=== PATIENT | male | born 1950 | race African-American/Black ===

== ENCOUNTER → 2016-06-17 | Outpatient (CLI) | payer MEDICARE | LOC: OD 08:31 | PROVIDERS: ATTEND Internal Medicine | DX: M17.11 Unilateral primary osteoarthritis, right knee (principal) ==

== ENCOUNTER 2019-09-02 08:12 | Inpatient (IN) | payer MEDICARE, BC, OTHER ==
[2019-09-02] MEDS ORDERED: ACETAMINOPHEN 325 MG TABLET PO ONE ×2 (08:56→14:53)
[2019-09-02] MEDS ORDERED: NORMAL SALINE 1000 ML 1,000 ML IV ONE (09:37)
--- NOTE | 2019-09-02 09:40 | ER Document Report ---
ED GI/ - General TRAVEL OUTSIDE OF THE [place] IN LAST 30 DAYS: No - HPI Patient complains to provider of: No: Abdominal pain Timing/Duration: Gradual Quality of pain: Burning Pain Level: 1 Associated symptoms: Chills, Dysuria, Fever, Urinary frequency, Urinary urgency. denies: Chest pain, Diarrhea, Nausea, Urinary hesitancy Exacerbated by: Denies Relieved by: Denies Similar symptoms previously: No Recently seen / treated by doctor: No <RAFFI MUÑIZ - Last Filed: 09/02/19 20:14> <KONSTANTIN ANDRE - Last Filed: 09/05/19 03:31> - General Chief Complaint: Urinary Incontinence Stated Complaint: URINARY INCONTINENCE Time Seen by Provider: 09/02/19 09:05 Notes: Patient presents complaining of fever hot and cold chills with dysuria and hematuria that started yesterday. Patient denies any nausea or vomiting. Patient denies any abdominal tenderness or back pain. Patient denies any history of kidney stones. (RAFFI MUÑIZ) - Related Data Allergies/Adverse Reactions: No Known Allergies Allergy (Verified 09/02/19 09:54) Past Medical History - General Information source: Patient - Social History Smoking Status: Never Smoker Frequency of alcohol use: None Drug Abuse: None Lives with: Family Family History: Reviewed & Not Pertinent - Past Medical History Cardiac Medical History: Reports: Hx Hypercholesterolemia, Hx Hypertension Endocrine Medical History: Reports: Hx Diabetes Mellitus Type 2 Past Surgical History: Reports: Hx Orthopedic Surgery - rt ankle - Immunizations Hx Diphtheria, Pertussis, Tetanus Vaccination: Yes <RAFFI MUÑIZ - Last Filed: 09/02/19 20:14> Review of Systems - Review of Systems Constitutional: Chills, Fever EENT: No symptoms reported Cardiovascular: Dizziness. denies: Chest pain Respiratory: No symptoms reported. denies: Cough, Short of breath Gastrointestinal: No symptoms reported. denies: Abdominal pain, Diarrhea, Nausea, Vomiting Genitourinary: Dysuria, Frequency, Hematuria, Incontinence, Urgency. denies: Flank pain Male Genitourinary: No symptoms reported Musculoskeletal: No symptoms reported. denies: Back pain Skin: No symptoms reported Hematologic/Lymphatic: No symptoms reported Neurological/Psychological: No symptoms reported. denies: Headaches <RAFFI MUÑIZ - Last Filed: 09/02/19 20:14> Physical Exam - General General appearance: Appears well, Alert In distress: None - HEENT Head: Normocephalic, Atraumatic Eyes: Normal Nasal: Normal Mouth/Lips: Normal Mucous membranes: Normal Neck: Normal, Supple. No: Lymphadenopathy - Respiratory Respiratory status: No respiratory distress Chest status: Nontender Breath sounds: Normal. No: Rales, Rhonchi, Stridor, Wheezing Chest palpation: Normal - Cardiovascular Rhythm: Tachycardia Heart sounds: S1 appreciated, S2 appreciated Murmur: No - Abdominal Inspection: Normal Distension: No distension Bowel sounds: Normal Tenderness: Nontender Organomegaly: No organomegaly - Back Back: Normal, Nontender. No: CVA tenderness - Extremities General upper extremity: Normal inspection, Normal strength General lower extremity: Normal inspection, Normal strength - Neurological Neuro grossly intact: Yes Cognition: Normal Akash Coma Scale Eye Opening: Spontaneous Akash Coma Scale Verbal: Oriented [place] Coma Scale Motor: Obeys Commands [place] Coma Scale Total: 15 - Psychological Associated symptoms: Normal affect, Normal mood - Skin Skin Temperature: Warm Skin Moisture: Dry Skin Color: Normal <RAFFI MUÑIZ - Last Filed: 09/02/19 20:14> - Vital signs Vitals: Temp Pulse Resp BP Pulse Ox 101.6 F H 111 H 18 126/77 H 95 09/02/19 08:16 09/02/19 08:16 09/02/19 08:16 09/02/19 08:16 09/02/19 08:16 Course - Laboratory Result Diagrams: 09/02/19 09:46 09/02/19 09:46 - Diagnostic Test Radiology reviewed: Reports reviewed - EKG Interpretation by Ga EKG shows normal: Sinus rhythm Rate: Tachycardia When compared to previous EKG there are: Previous EKG unavailable <RAFFI MUÑIZ - Last Filed: 09/02/19 20:14> - Laboratory Result Diagrams: 09/04/19 04:23 09/04/19 04:23 <KONSTANTIN ANDRE - Last Filed: 09/05/19 03:31> - Re-evaluation Re-evalutation: 09/02/19 14:52 Patient standing at bedside, tachycardic. With blood noted on and in the urinal. Discussed patient status with nurse, staff states that the IV spilled and that he has only received 1 L of IV fluids, although 2nd liter is hanging now. RN also reports that patient accidentally pulled part of his IV catheter that caused bleeding into the urinal, patient does not have crescencio blood to the urine, rather that this was from his IV site. Will repeat temperature. Consulted with dr Andre regarding patient status, Dr. Andre to evaluate patient. 09/02/19 15:00 Patient febrile, Tylenol ordered suspect this is a likely cause of the tachycardia at this time. Dr. Andre to bedside evaluation, agrees with plan for admission. 09/02/19 15:01 09/02/19 15:[address] Zepeda who agrees to accept patient for admission, Chanda Yee [employer] will be down to evaluate patient. (RAFFI MUÑIZ) - Vital Signs Vital signs: Temp Pulse Resp BP Pulse Ox 99.7 F 89 16 157/91 H 98 09/05/19 00:48 09/05/19 02:00 09/05/19 00:48 09/05/19 00:48 09/05/19 00:48 - Laboratory Laboratory results interpreted by me: 09/02/19 09/02/19 09/02/19 09:46 09:46 09:46 WBC 18.4 H Lymph % (Auto) 5.6 L Absolute Neuts (auto) 15.8 H Absolute Monos (auto) 1.5 H Seg Neutrophils % 85.8 H Creatinine 1.49 H Est GFR ( Amer) 57 L Est GFR (MDRD) Non-Af 47 L Glucose 119 H Lactic Acid Urine Protein 100 H Urine Blood LARGE H Ur Leukocyte Esterase LARGE H 09/02/19 13:25 WBC Lymph % (Auto) Absolute Neuts (auto) Absolute Monos (auto) Seg Neutrophils % Creatinine Est GFR ( Amer) Est GFR (MDRD) Non-Af Glucose Lactic Acid 3.3 H Urine Protein Urine Blood Ur Leukocyte Esterase Labs- All tests 24 hr 09/02/19 09/02/19 09/02/19 09:46 09:46 09:46 WBC 18.4 H RBC 4.58 Hgb 14.3 Hct 41.4 MCV 90 MCH 31.1 MCHC 34.4 RDW 14.0 Plt Count 212 Lymph % (Auto) 5.6 L [place] % (Auto) 8.3 Eos % (Auto) 0.1 Baso % (Auto) 0.2 Absolute Neuts (auto) 15.8 H Absolute Lymphs (auto) 1.0 Absolute Monos (auto) 1.5 H Absolute Eos (auto) 0.0 Absolute Basos (auto) 0.0 Seg Neutrophils % 85.8 H PT 13.6 INR 1.04 VBG pH 7.41 VBG pCO2 45.1 VBG HCO3 27.8 VBG Base Excess 2.6 Sodium Potassium Chloride Carbon Dioxide Anion Gap BUN Creatinine Est GFR ( Amer) Est GFR (MDRD) Non-Af Glucose POC Glucose Lactic Acid Calcium Total Bilirubin Direct Bilirubin Neonat Total Bilirubin Neonat Direct Bilirubin Neonat Indirect Bili AST ALT Alkaline Phosphatase Total Protein Albumin Urine Color Urine Appearance Urine pH Ur Specific [place] Urine Protein Urine Glucose (UA) Urine Ketones Urine Blood Urine Nitrite Urine Bilirubin Urine Urobilinogen Ur Leukocyte Esterase Urine WBC (Auto) Urine RBC (Auto) Urine WBC Clumps Squamous Epi Cells Auto Urine Mucus (Auto) Urine Ascorbic Acid 09/02/19 09/02/19 09/02/19 09:46 09:46 09:46 WBC RBC Hgb Hct MCV MCH MCHC RDW Plt Count Lymph % (Auto) [place] % (Auto) Eos % (Auto) Baso % (Auto) Absolute Neuts (auto) Absolute Lymphs (auto) Absolute Monos (auto) Absolute Eos (auto) Absolute Basos (auto) Seg Neutrophils % PT INR VBG pH VBG pCO2 VBG HCO3 VBG Base Excess Sodium 137.4 Potassium 4.0 Chloride 102 Carbon Dioxide 26 Anion Gap 9 BUN 20 Creatinine 1.49 H Est GFR ( Amer) 57 L Est GFR (MDRD) Non-Af 47 L Glucose 119 H POC Glucose Lactic Acid 1.1 Calcium 9.6 Total Bilirubin 1.0 Direct Bilirubin 0.0 Neonat Total Bilirubin Not Reportable Neonat Direct Bilirubin Not Reportable Neonat Indirect Bili Not Reportable AST 23 ALT 20 Alkaline Phosphatase 88 Total Protein 7.3 Albumin 4.3 Urine Color YELLOW Urine Appearance CLOUDY Urine pH 6.0 Ur Specific [place] 1.020 Urine Protein 100 H Urine Glucose (UA) NEGATIVE Urine Ketones NEGATIVE Urine Blood LARGE H Urine Nitrite NEGATIVE Urine Bilirubin NEGATIVE Urine Urobilinogen NEGATIVE Ur Leukocyte Esterase LARGE H Urine WBC (Auto) >182 Urine RBC (Auto) >182 Urine WBC Clumps MANY Squamous Epi Cells Auto 3 Urine Mucus (Auto) OCC Urine Ascorbic Acid NEGATIVE 09/02/19 09/02/19 10:47 13:25 WBC RBC Hgb Hct MCV MCH MCHC RDW Plt Count Lymph % (Auto) [place] % (Auto) Eos % (Auto) Baso % (Auto) Absolute Neuts (auto) Absolute Lymphs (auto) Absolute Monos (auto) Absolute Eos (auto) Absolute Basos (auto) Seg Neutrophils % PT INR VBG pH VBG pCO2 VBG HCO3 VBG Base Excess Sodium Potassium Chloride Carbon Dioxide Anion Gap BUN Creatinine Est GFR ( Amer) Est GFR (MDRD) Non-Af Glucose POC Glucose 107 Lactic Acid 3.3 H Calcium Total Bilirubin Direct Bilirubin Neonat Total Bilirubin Neonat Direct Bilirubin Neonat Indirect Bili AST ALT Alkaline Phosphatase Total Protein Albumin Urine Color Urine Appearance Urine pH Ur Specific [place] Urine Protein Urine Glucose (UA) Urine Ketones Urine Blood Urine Nitrite Urine Bilirubin Urine Urobilinogen Ur Leukocyte Esterase Urine WBC (Auto) Urine RBC (Auto) Urine WBC Clumps Squamous Epi Cells Auto Urine Mucus (Auto) Urine Ascorbic Acid (RAFFI MUÑIZ) - EKG Interpretation by Me Additional EKG results interpreted by me: 09/02/19 15:32 Sinus tachycardia with a rate of 133, QTC 399, no acute ischemic changes, patient febrile when EKG taken (RAFFI MUÑIZ) Discharge - Discharge Admitting Provider: Duane (Hospitalist) Unit Admitted: [facility] <RAFFI MUÑIZ - Last Filed: 09/02/19 20:14> <KONSTANTIN ANDRE - Last Filed: 09/05/19 03:31> - Discharge Clinical Impression: Fever UTI (urinary tract infection) Qualifiers: Urinary tract infection type: acute cystitis Hematuria presence: with hematuria Qualified Code(s): N30.01 - Acute cystitis with hematuria Sepsis Qualifiers: Sepsis type: sepsis due to unspecified organism Severe sepsis acute organ dysfunction type: acute renal failure Severe sepsis shock status: without septic shock Condition: Fair Disposition: ADMITTED INPATIENT Doctor's Note <KONSTANTIN ANDRE - Last Filed: 09/05/19 03:31> Notes: 09/03/19 15:29 I was asked to see the patient by the midlevel provider, patient's tachycardic and appears to be dehydrated with a fever that is ascending. I have suggested to increase fluid bolus, treatment of fever, and admission to the hospital for further evaluation of possible sepsis. (KONSTANTIN ANDRE)
--- NOTE | 2019-09-02 10:14 | RADIOLOGY REPORT (SQ) ---
EXAM DESCRIPTION: CHEST SINGLE VIEW IMAGES COMPLETED DATE/TIME: 09/02/2019 9:58 am REASON FOR STUDY: fever, dizzy COMPARISON: None. NUMBER OF VIEWS: One view. TECHNIQUE: Single frontal radiographic view of the chest acquired. LIMITATIONS: None. FINDINGS: LUNGS AND PLEURA: No opacities, masses or pneumothorax. No pleural effusion. MEDIASTINUM AND HILAR STRUCTURES: No masses. Contour normal. HEART AND VASCULAR STRUCTURES: Heart normal in size. Normal vasculature. BONES: No acute findings. HARDWARE: None in the chest. OTHER: No other significant finding. IMPRESSION: NO SIGNIFICANT RADIOGRAPHIC FINDING IN THE CHEST. TECHNICAL DOCUMENTATION: JOB ID: [id number] 2010 [employer]- All Rights Reserved Reading location - IP/workstation name: [email or web address]
[2019-09-02 10:46] LABS: ABSOLUTE MONOCYTES (AUTO) 1.5 10^3/uL (0.1-1.4); ABSOLUTE NEUT (AUTO) 15.8 10^3/uL (1.7-8.2); BASOPHILS % (AUTO) 0.2 % (0-2); EOSINOPHILS % (AUTO) 0.1 % (0-6); HEMATOCRIT 41.4 % (37.9-51.0); HEMOGLOBIN 14.3 g/dL (13.5-17.0); LYMPHOCYTES % (AUTO) 5.6 % (13-45); MEAN CORPUSCULAR HEMOGLOBIN 31.1 pg (27.0-33.4); MEAN CORPUSCULAR HGB CONC 34.4 g/dL (32.0-36.0); MEAN CORPUSCULAR VOLUME 90 fl (80-97); MONOCYTES % (AUTO) 8.3 % (3-13); PLATELET COUNT 212 10^3/uL (150-450); RED BLOOD COUNT 4.58 10^6/uL (4.35-5.55); SEGMENTED NEUTROPHILS % (AUTO) 85.8 % (42-78); TOTAL CELLS COUNTED % (AUTO) 100 %; VENOUS BLOOD BASE EXCESS 2.6 mmol/L; VENOUS BLOOD HCO3 27.8 mmol/L (20-32); VENOUS BLOOD PCO2 45.1 mmHg (35-63); VENOUS BLOOD PH 7.41 (7.30-7.42); WHITE BLOOD COUNT 18.4 10^3/uL (4.0-10.5)
[2019-09-02 10:47] LABS: INTERNATIONAL RATION (INR) 1.04; PROTHROMBIN TIME 13.6 SEC (11.4-15.4)
[2019-09-02 10:58] LABS: ALBUMIN 4.3 g/dL (3.5-5.0); ALKALINE PHOSPHATASE 88 U/L (38-126); ANION GAP 9 (5-19); ASPARTATE AMINO TRANSFERASE 23 U/L (17-59); BLOOD UREA NITROGEN 20 mg/dL (7-20); CALCIUM 9.6 mg/dL (8.4-10.2); CARBON DIOXIDE 26 mmol/L (22-30); CHLORIDE 102 mmol/L (98-107); GLUCOSE 119 mg/dL (75-110); TOTAL PROTEIN 7.3 g/dL (6.3-8.2)
[2019-09-02 11:44] LABS: APPEARANCE,URINE CLOUDY; BILIRUBIN,URINE NEGATIVE (NEGATIVE); COLOR,URINE YELLOW; GLUCOSE, URINE NEGATIVE (NEGATIVE); KETONES,URINE NEGATIVE (NEGATIVE); LEUKOCYTE ESTERASE,URINE LARGE (NEGATIVE); NITRITE,URINE NEGATIVE (NEGATIVE); PROTEIN,URINE 100 mg/dL (NEGATIVE); UROBILINOGEN,URINE NEGATIVE mg/dL (<2.0)
[2019-09-02] MEDS ORDERED: RINGERS SOLUTION,LACTATED 1,000 ML IV ONE ×3 (12:10→16:30)
[2019-09-02] MEDS ORDERED: CEFTRIAXONE 1 GM/D5W RTU 1 GM/50 ML RTUPB IV ONE (12:11)
--- NOTE | 2019-09-02 12:57 | RADIOLOGY REPORT (SQ) ---
EXAM DESCRIPTION: CT ABD/PELVIS NO ORAL OR IV IMAGES COMPLETED DATE/TIME: 09/02/2019 12:41 pm REASON FOR STUDY: fever, UTI, ?kidney stone COMPARISON: 12/13/2009 TECHNIQUE: CT scan of the abdomen and pelvis performed without intravenous or oral contrast. Images reviewed with lung, soft tissue, and bone windows. Reconstructed coronal and sagittal MPR images revi ewed. All images stored on PACS. All CT scanners at this facility use dose modulation, iterative reconstruction, and/or weight based d osing when appropriate to reduce radiation dose to as low as reasonably achievable (ALARA). [facility]: Dose Right [facility]: CareDose [facility]: Dose Right [facility]: Teradose 4D [facility]: Smart [employer] RADIATION DOSE: CT Rad equipment meets quality standard of care and radiation dose reduction techniq ues were employed. CTDIvol: 18.6 mGy. DLP: 1056 mGy-cm.mGy. LIMITATIONS: None. FINDINGS: LOWER CHEST: No significant findings. No nodules or infiltrates. NON-CONTRASTED LIVER, SPLEEN, ADRENALS: Evaluation limited by lack of IV contrast. No identified sign ificant masses. PANCREAS: No masses. No peripancreatic inflammatory changes. GALLBLADDER: No identified stones by CT criteria. No inflammatory changes to suggest cholecystitis. RIGHT KIDNEY AND URETER: There are 3 well-circumscribed high density cortical lesions, largest 1.5 cm lower pole. Probable hemorrhagic cyst but not present on the prior. No significant calcifications . No hydronephrosis or hydroureter. LEFT KIDNEY AND URETER: Cortical cysts. No suspicious masses. Assessment limited by lack of IV contr ast. No significant calcifications. No hydronephrosis or hydroureter. AORTA AND RETROPERITONEUM: 3.2 cm distal aortic aneurysm. BOWEL AND PERITONEAL CAVITY: No obvious masses or inflammatory changes. No free fluid. APPENDIX: Normal. PELVIS, BLADDER, AND ABDOMINAL WALL:No abnormal masses. No free fluid. Bladder normal. BONES: No significant findings. OTHER: No other significant finding. IMPRESSION: 1. No evidence of urinary tract stones or hydronephrosis. 2. Probable hemorrhagic cysts right kidney. Correlate with renal ultrasound to exclude solid lesion. 3. 3.2 cm distal aortic aneurysm. COMMENT: Quality ID # [id number]: Final reports with documentation of one or more dose reduction techniques (e.g., Automated exposure control, adjustment of the mA and/or kV according to patient size, use of iterative reconstruction technique) TECHNICAL DOCUMENTATION: JOB ID: [id number] 2010 [employer]- All Rights Reserved Reading location - IP/workstation name: [email or web address]
--- NOTE | 2019-09-02 14:35 | RADIOLOGY REPORT (SQ) ---
EXAM DESCRIPTION: U/S RETROPERITON (RENAL/AORTA) IMAGES COMPLETED DATE/TIME: 09/02/2019 2:22 pm REASON FOR STUDY: eval cystic lesion of kidney COMPARISON: 09/02/[address] TECHNIQUE: Dynamic and static grayscale images acquired of the kidneys and bladder and recorded on P ACS. Additional selected color Doppler and spectral images recorded. LIMITATIONS: Poor beam penetration. FINDINGS: RIGHT KIDNEY: Normal size. Mildly lobulated renal contour without defined lesion as seen on comparison CT. No hydronephrosis. No calcifications identified. LEFT KIDNEY: Normal size. Mildly lobulated renal contour without defined lesion as seen on compariso n CT. No hydronephrosis. . No hydronephrosis. No calcifications identified. BLADDER: Decompressed. OTHER FINDINGS: No other significant finding. IMPRESSION: Mildly lobulated renal contours without defined lesion as seen on comparison CT. No hydr onephrosis. TECHNICAL DOCUMENTATION: JOB ID: [id number] 2010 [employer]- All Rights Reserved Reading location - IP/workstation name: [email or web address]
[2019-09-02] MEDS ORDERED: PHENAZOPYRIDINE HCL 200 MG TABLET PO ONE (14:55)
[2019-09-02] MEDS ORDERED: MAG HYDROX/AL HYDROX/SIMETH SUSP 30 ML UDCUP PO PRN (15:53)
[2019-09-02] MEDS ORDERED: ALBUTEROL SULFATE 0.083% NEB 2.5 MG/3 ML AMPUL NEB PRN (15:53)
[2019-09-02] MEDS ORDERED: PROMETHAZINE HCL INJ 25 MG/1 ML VIAL IV PRN (15:53)
[2019-09-02] MEDS ORDERED: ONDANSETRON HCL INJ/PF 4 MG/2 ML SDV IV PRN (15:53)
[2019-09-02] MEDS ORDERED: HYDRALAZINE HCL INJ/PF 20 MG/1 ML SDV IV PRN (16:01)
[2019-09-02] MEDS ORDERED: GLUCAGON,HUMAN RECOMB 1 MG INJ IM PRN (16:03)
[2019-09-02] MEDS ORDERED: DEXTROSE 40% GEL 15 GM TUBE PO PRN ×2 (16:03)
[2019-09-02] MEDS ORDERED: DEXTROSE 50%-WATER 25 GM/50 ML DISP.SYRIN IV PRN ×2 (16:03)
--- NOTE | 2019-09-02 16:07 | PDOC H&P ---
History of Present Illness Admission Date/PCP: TREVOR MOY Patient complains of: urinary frequency History of Present Illness: JENNIFER CADE JR is a 69 year old male with a past medical history significant for hypertension, hyperlipidemia, DM 2, and obesity who presented to the emergency department today with a complaint of Urinary frequency. He had had subjective fevers beginning last night along with dysuria and hematuria beginning yesterday. He denies nausea vomiting and flank pain tenderness. Evaluation emergency department revealed temperature 102.8, tachycardia (HR 137), tachypnea (RR 27) leukocytosis (WBC is 18.4) CHIARA (CR 1.49/BUN 20), elevate d lactic acid 3.3, and urinalysis positive for UTI. CT abdomen/pelvis was negative for nephrolithiasis and hydronephrosis; probable hemorrhagic cyst to the right kidney which was confirmed by follow-up renal ultrasound. He was provided IV fluid bolus and Rocephin; referred to the hospitalist service for admission and management of the above-stated complaints findings Past Medical History Cardiac Medical History: Reports: Hyperlipidema, Hypertension Pulmonary Medical History: Reports: None EENT Medical History: Reports: None Neurological Medical History: Reports: None Endocrine Medical History: Reports: Diabetes Mellitus Type 2, Obesity Renal/ Medical History: Reports: None Malignancy Medical History: Reports: None GI Medical History: Reports: None Musculoskeltal Medical History: Reports: Arthritis Skin Medical History: Reports: None Psychiatric Medical History: Reports: None Traumatic Medical History: Reports: None Hematology: Reports: None Infectious Medical History: Reports: None Past Surgical History Past Surgical History: Reports: Orthopedic Surgery - rt ankle Social History Information Source: Patient Lives with: Family Smoking Status: Never Smoker Electronic Cigarette use?: No Frequency of Alcohol Use: None Hx Recreational Drug Use: No - Advance Directive Resuscitation Status: Full Code Family History Family History: Reviewed & Not Pertinent Parental Family History Reviewed: Yes Children Family History Reviewed: Yes Sibling(s) Family History Reviewed.: Yes Medication/Allergy Home Medications: Amlodipine Besylate [Norvasc 10 mg Tablet] 10 mg PO DAILY 07/13/11 Hydrochlorothiazide [Hydrodiuril 25 mg Tablet] 25 mg PO QAM 07/13/11 Allergies/Adverse Reactions: No Known Allergies Allergy (Verified 09/02/19 09:54) Review of Systems Constitutional: PRESENT: anorexia, chills, fatigue, fever(s). ABSENT: headache(s), weight gain, weight loss Eyes: ABSENT: visual disturbances Ears: ABSENT: hearing changes Cardiovascular: ABSENT: chest pain, dyspnea on exertion, edema, orthropnea, palpitations Respiratory: ABSENT: cough, hemoptysis Gastrointestinal: ABSENT: abdominal pain, constipation, diarrhea, hematemesis, hematochezia, nausea, vomiting Genitourinary: PRESENT: difficulty urinating, dysuria, hematuria Musculoskeletal: ABSENT: joint swelling Integumentary: ABSENT: rash, wounds Neurological: ABSENT: abnormal gait, abnormal speech, confusion, dizziness, focal weakness, syncope Psychiatric: ABSENT: anxiety, depression, homidical ideation, suicidal ideation Endocrine: ABSENT: cold intolerance, heat intolerance, polydipsia, polyuria Hematologic/Lymphatic: ABSENT: easy bleeding, easy bruising Physical Exam Vital Signs: Temp Pulse Resp BP Pulse Ox 102.8 F H 111 H 24 H 155/103 H 94 09/02/19 15:01 09/02/19 08:16 09/02/19 14:58 09/02/19 14:58 09/02/19 13:21 Intake & Output 09/01/19 09/02/19 09/03/19 06:59 06:59 06:59 Intake Total 2049 Balance 2049 Weight 122.9 kg General appearance: PRESENT: cooperative, mild distress, obese, well-developed, well-nourished Head exam: PRESENT: atraumatic, normocephalic Eye exam: PRESENT: conjunctiva pink, EOMI, PERRLA. ABSENT: scleral icterus Mouth exam: PRESENT: dry mucosa, tongue midline Neck exam: ABSENT: carotid bruit, JVD, lymphadenopathy, thyromegaly Respiratory exam: PRESENT: clear to auscultation vernon, symmetrical. ABSENT: rales, rhonchi, wheezes Cardiovascular exam: PRESENT: RRR, +S1, +S2, tachycardia. ABSENT: diastolic murmur, rubs, systolic murmur Vascular exam: PRESENT: normal capillary refill GI/Abdominal exam: PRESENT: normal bowel sounds, soft. ABSENT: distended, guarding, mass, organolmegaly, rebound, tenderness Rectal exam: PRESENT: deferred Extremities exam: PRESENT: full ROM. ABSENT: calf tenderness, clubbing, pedal edema Neurological exam: PRESENT: alert, awake, oriented to person, oriented to place, oriented to time, oriented to situation, CN II-XII grossly intact, other - intermittent confusion. ABSENT: motor sensory deficit Psychiatric exam: PRESENT: appropriate affect, normal mood. ABSENT: homicidal ideation, suicidal ideation Skin exam: PRESENT: dry, intact, warm. ABSENT: cyanosis, rash Results Laboratory Results: 09/02/19 09:46 09/02/19 09:46 09/02/19 09/02/19 09/02/19 09:46 09:46 09:46 WBC 18.4 H RBC 4.58 Hgb 14.3 Hct 41.4 MCV 90 MCH 31.1 MCHC 34.4 RDW 14.0 Plt Count 212 Seg Neutrophils % 85.8 H VBG pH 7.41 VBG pCO2 45.1 VBG HCO3 27.8 VBG Base Excess 2.6 Sodium 137.4 Potassium 4.0 Chloride 102 Carbon Dioxide 26 Anion Gap 9 BUN 20 Creatinine 1.49 H Est GFR ( Amer) 57 L Glucose 119 H Lactic Acid Calcium 9.6 Total Bilirubin 1.0 AST 23 Alkaline Phosphatase 88 Total Protein 7.3 Albumin 4.3 Urine Color Urine Appearance Urine pH Ur Specific [place] Urine Protein Urine Glucose (UA) Urine Ketones Urine Blood Urine Nitrite Ur Leukocyte Esterase Urine WBC (Auto) Urine RBC (Auto) 09/02/19 09/02/19 09/02/19 09:46 09:46 13:25 WBC RBC Hgb Hct MCV MCH MCHC RDW Plt Count Seg Neutrophils % VBG pH VBG pCO2 VBG HCO3 VBG Base Excess Sodium Potassium Chloride Carbon Dioxide Anion Gap BUN Creatinine Est GFR ( Amer) Glucose Lactic Acid 1.1 3.3 H Calcium Total Bilirubin AST Alkaline Phosphatase Total Protein Albumin Urine Color YELLOW Urine Appearance CLOUDY Urine pH 6.0 Ur Specific [place] 1.020 Urine Protein 100 H Urine Glucose (UA) NEGATIVE Urine Ketones NEGATIVE Urine Blood LARGE H Urine Nitrite NEGATIVE Ur Leukocyte Esterase LARGE H Urine WBC (Auto) >182 Urine RBC (Auto) >182 Impressions: Chest X-Ray 09/02/19 09:35 IMPRESSION: NO SIGNIFICANT RADIOGRAPHIC FINDING IN THE CHEST. Abdomen/Pelvis CT 09/02/19 12:07 IMPRESSION: 1. No evidence of urinary tract stones or hydronephrosis. 2. Probable hemorrhagic cysts right kidney. Correlate with renal ultrasound to exclude solid lesion. 3. 3.2 cm distal aortic aneurysm. Renal Ultrasound 09/02/19 13:26 IMPRESSION: Mildly lobulated renal contours without defined lesion as seen on comparison CT. No hydronephrosis. Assessment and Plan - Diagnosis (1) Sepsis Qualifiers: Sepsis type: sepsis due to unspecified organism Severe sepsis acute organ dysfunction type: acute renal failure Severe sepsis shock status: without septic shock Is this a current diagnosis for this admission?: Yes Plan: Patient presented with sepsis due to UTI, present on arrival, evidenced by fever, tachycardia, tachypnea leukocytosis, CHIARA, elevated lactic acid, and evidence of UTI. He is admitted to [facility] on continuous cardiac telemetry. He is provided appropriate fluid resuscitation boluses followed by maintenance IV fluids. Blood and urine cultures are pending. Continue IV Rocephin; adjust as cultures result. (2) UTI (urinary tract infection) Qualifiers: Urinary tract infection type: acute cystitis Hematuria presence: with hematuria Qualified Code(s): N30.01 - Acute cystitis with hematuria Is this a current diagnosis for this admission?: Yes Plan: Blood and urine cultures pending. IV Rocephin. Pyridium for discomfort. IV fluids and encourage p.o. fluid intake. (3) CHIARA (acute kidney injury) Is this a current diagnosis for this admission?: Yes Plan: Creatinine 1.49: Unknown baseline. Patient is tachycardic with dry mucous membranes and UTI; concerning for prerenal CHIARA. He is provided generous IV fluids and appropriate sepsis resuscitation. Avoid nephrotoxic medications as able; renally dosed as appropriate. Follow-up chemistry. (4) Hypertensive urgency Is this a current diagnosis for this admission?: Yes Plan: Continue home dose amlodipine. IV hydralazine as needed for blood pressure control. Cardiac diet. (5) Diabetes Qualifiers: Diabetes mellitus type: type 2 Diabetes mellitus senior care insulin use: without senior care use Is this a current diagnosis for this admission?: Yes Plan: Holding oral medications while admitted. Patient is placed on a consistent carb diet. Accu-Cheks before meals and at bedtime with Humalog for sliding scale coverage. Hypoglycemia protocol in place. - Time Time Spent with patient: 35 or more minutes Medications reviewed and adjusted accordingly: Yes Anticipated discharge: Home - Inpatient Certification Based on my medical assessment, after consideration of the patient's comorbidities, presenting symptoms, or acuity I expect that the services needed warrant INPATIENT care.: Yes I certify that my determination is in accordance with my understanding of Medicare's requirements for reasonable and necessary INPATIENT services [42 CFR 412.3e].: Yes Medical Necessity: Need Close Monitoring Due to Risk of Patient Decompensation, Need For IV Fluids, Need For Continuous Telemetry Monitoring, Need for IV Antibiotics, Risk of Complication if Not Cared For in Hospital
[2019-09-02] MEDS ORDERED: PHENAZOPYRIDINE HCL 100 MG TABLET PO ONE (16:30)
[2019-09-02] MEDS: IBUPROFEN 800 MG TABLET PO PRN (17:59)
[2019-09-02] MEDS ORDERED: PHENAZOPYRIDINE HCL 100 MG TABLET ONE (18:03)
[2019-09-02] MEDS: NORMAL SALINE 1000 ML 1,000 ML IV PRN (19:23)
[2019-09-02] MEDS: INSULIN LISPRO 100 UNIT/ML 3 ML VIAL SUBCUT SCH (21:46)
[2019-09-02] MEDS: HEPARIN SOD (PORCINE) 5,000 UNIT/ML 1 ML VIAL SUBCUT SCH (21:48)
[2019-09-02] MEDS: PHENAZOPYRIDINE HCL 100 MG TABLET PO SCH (21:56)
[2019-09-02] MEDS: FAMOTIDINE 20 MG TABLET PO SCH (21:56)
[2019-09-03] MEDS: NORMAL SALINE 1000 ML 1,000 ML IV PRN ×3 (03:20→19:00)
[2019-09-03] MEDS: HEPARIN SOD (PORCINE) 5,000 UNIT/ML 1 ML VIAL SUBCUT SCH ×3 (05:32→21:02)
[2019-09-03 05:53] LABS: HEMATOCRIT 37.8 % (37.9-51.0); HEMOGLOBIN 12.8 g/dL (13.5-17.0); MEAN CORPUSCULAR HGB CONC 33.8 g/dL (32.0-36.0); MEAN CORPUSCULAR VOLUME 92 fl (80-97); PLATELET COUNT 164 10^3/uL (150-450); RED BLOOD COUNT 4.12 10^6/uL (4.35-5.55); RED CELL DISTRIBUTION WIDTH 14.6 % (11.5-14.0); WHITE BLOOD COUNT 20.9 10^3/uL (4.0-10.5)
[2019-09-03 06:07] LABS: ANION GAP 6 (5-19); BLOOD UREA NITROGEN 22 mg/dL (7-20); CALCIUM 8.8 mg/dL (8.4-10.2); CARBON DIOXIDE 26 mmol/L (22-30); CHLORIDE 105 mmol/L (98-107); GLUCOSE 109 mg/dL (75-110); POTASSIUM 3.5 mmol/L (3.6-5.0)
[2019-09-03 06:29] LABS: ABSOLUTE LYMPHOCYTES# (MANUAL) 2.9 10^3/uL (0.5-4.7); BAND NEUTROPHILS % (MANUAL) 4 % (3-5); BASOPHILS % (MANUAL) 0 % (0-2); EOSINOPHILS % (MANUAL) 1 % (0-6); LYMPHOCYTES % (MANUAL) 14 % (13-45); MONOCYTES % (MANUAL) 5 % (3-13); PLATELET COMMENT ADEQUATE; RBC MORPHOLOGY COMMENT NORMO-CYTIC/CHROMIC; SEGMENTED NEUTROPHILS % (MAN) 76 % (42-78); TOTAL CELLS COUNTED 100
[2019-09-03] MEDS: PHENAZOPYRIDINE HCL 100 MG TABLET PO SCH ×3 (06:44→21:24)
[2019-09-03] MEDS: INSULIN LISPRO 100 UNIT/ML 3 ML VIAL SUBCUT SCH ×4 (08:31→21:54)
[2019-09-03] MEDS: FAMOTIDINE 20 MG TABLET PO SCH ×2 (09:56→21:24)
[2019-09-03] MEDS: DOCUSATE SODIUM 100 MG CAPSULE PO SCH (09:56)
[2019-09-03] MEDS: CEFTRIAXONE 1 GM/D5W RTU 1 GM/50 ML RTUPB IV SCH (09:58)
[2019-09-03] MEDS ORDERED: AMLODIPINE BESYLATE 10 MG TABLET PO SCH (10:00)
--- NOTE | 2019-09-03 12:19 | PDOC PROGRESS REPORT ---
Subjective Progress Note for:: 09/03/19 Subjective:: JENNIFER CADE JR is a 69 year old male with a past medical history significant for hypertension, hyperlipidemia, DM 2, and obesity who was admitted 09/02/2019 with sepsis secondary to UTI. Patient was seen on morning rounds. He was found resting in bed, comfortably, o n room air. He reports that he is feeling much better today. He denies abdominal pain, flank pain and reports that his dysuria has improved. He does continue to have crescencio hematuria. T-max 102.8 last 24 hrs. He has no other questions or concerns at this time. No concerns per nursing. Reason For Visit: SEPSIS, UTI Physical Exam Vital Signs: Temp Pulse Resp BP Pulse Ox 98.9 F 87 20 135/80 H 96 09/03/19 07:48 09/03/19 07:48 09/03/19 03:21 09/03/19 07:48 09/03/19 07:48 Intake & Output 09/02/19 09/03/19 09/04/19 06:59 06:59 06:59 Intake Total 5280 831 Output Total 600 Balance 4680 831 Weight 124.4 kg General appearance: PRESENT: no acute distress, cooperative, obese, well- developed, well-nourished Head exam: PRESENT: atraumatic, normocephalic Eye exam: PRESENT: conjunctiva pink, EOMI, PERRLA. ABSENT: scleral icterus Mouth exam: PRESENT: moist, tongue midline Respiratory exam: PRESENT: clear to auscultation vernon, symmetrical, unlabored. ABSENT: rales, rhonchi, wheezes Cardiovascular exam: PRESENT: RRR, +S1, +S2, tachycardia. ABSENT: diastolic murmur, rubs, systolic murmur Vascular exam: PRESENT: normal capillary refill GI/Abdominal exam: PRESENT: normal bowel sounds, soft. ABSENT: distended, guarding, mass, organolmegaly, rebound, tenderness Extremities exam: PRESENT: full ROM. ABSENT: calf tenderness, clubbing, pedal edema Musculoskeletal exam: PRESENT: ambulatory Neurological exam: PRESENT: alert, awake, oriented to person, oriented to place, oriented to time, oriented to situation, CN II-XII grossly intact. ABSENT: motor sensory deficit Psychiatric exam: PRESENT: appropriate affect, normal mood. ABSENT: homicidal ideation, suicidal ideation Skin exam: PRESENT: dry, intact, warm. ABSENT: cyanosis, rash Results Laboratory Results: 09/03/19 05:08 09/03/19 05:08 09/02/19 09/02/19 09/02/19 13:25 16:15 16:15 WBC RBC Hgb Hct MCV MCH MCHC RDW Plt Count Seg Neutrophils % Sodium Potassium Chloride Carbon Dioxide Anion Gap BUN Creatinine Est GFR ( Amer) Glucose Lactic Acid 3.3 H 4.6 H Calcium Blood Type O POSITIVE Antibody Screen NEGATIVE 09/03/19 09/03/19 09/03/19 05:08 05:08 08:14 WBC 20.9 H RBC 4.12 L Hgb 12.8 L Hct 37.8 L MCV 92 MCH 31.0 MCHC 33.8 RDW 14.6 H Plt Count 164 Seg Neutrophils % Not Reportable Sodium 137.1 Potassium 3.5 L Chloride 105 Carbon Dioxide 26 Anion Gap 6 BUN 22 H Creatinine 1.33 H Est GFR ( Amer) > 60 Glucose 109 Lactic Acid 0.9 Calcium 8.8 Blood Type Antibody Screen Impressions: Chest X-Ray 09/02/19 09:35 IMPRESSION: NO SIGNIFICANT RADIOGRAPHIC FINDING IN THE CHEST. Abdomen/Pelvis CT 09/02/19 12:07 IMPRESSION: 1. No evidence of urinary tract stones or hydronephrosis. 2. Probable hemorrhagic cysts right kidney. Correlate with renal ultrasound to exclude solid lesion. 3. 3.2 cm distal aortic aneurysm. Renal Ultrasound 09/02/19 13:26 IMPRESSION: Mildly lobulated renal contours without defined lesion as seen on comparison CT. No hydronephrosis. Assessment and Plan - Diagnosis (1) Sepsis Qualifiers: Sepsis type: sepsis due to unspecified organism Severe sepsis acute organ dysfunction type: acute renal failure Severe sepsis shock status: without septic shock Is this a current diagnosis for this admission?: Yes Plan: Vital signs are improved, lactic acidosis has resolved, leukocytosis remains at 20k. Patient presented with sepsis due to UTI, present on arrival, evidenced by fever, tachycardia, tachypnea leukocytosis, CHIARA, elevated lactic acid, and evidence of UTI. Blood cultures pending Urine culture shows Gram negative rods. He is admitted to [facility] on continuous cardiac telemetry. He is provided appropriate fluid resuscitation boluses followed by maintenance IV fluids. Continue IV Rocephin; adjust as cultures result. (2) UTI (urinary tract infection) Qualifiers: Urinary tract infection type: acute cystitis Hematuria presence: with hematuria Qualified Code(s): N30.01 - Acute cystitis with hematuria Is this a current diagnosis for this admission?: Yes Plan: IV Rocephin. Pyridium for discomfort. IV fluids and encourage p.o. fluid intake. Monitor for urinary retention r/t hematuria w/ clots (3) CHIARA (acute kidney injury) Is this a current diagnosis for this admission?: Yes Plan: Creatinine 1.49-> 1.33: Unknown baseline. Patient is tachycardic with dry mucous membranes and UTI; concerning for prerenal CHIARA. He is provided generous IV fluids and appropriate sepsis resuscitation. Avoid nephrotoxic medications as able; renally dosed as appropriate. Follow-up chemistry. (4) Hypertensive urgency Is this a current diagnosis for this admission?: Yes Plan: Blood pressures are much improved. Continue home dose lisinopril/hctz IV hydralazine as needed for blood pressure control. Cardiac diet. (5) Diabetes Qualifiers: Diabetes mellitus type: type 2 Diabetes mellitus long term care pharmacist insulin use: without residential use Is this a current diagnosis for this admission?: Yes Plan: Holding oral medications while admitted. Patient is placed on a consistent carb diet. Accu-Cheks before meals and at bedtime with Humalog for sliding scale coverage. Hypoglycemia protocol in place. - Time Time Spent with patient: 15-24 minutes Medications reviewed and adjusted accordingly: Yes Anticipated discharge: Home
[2019-09-03] MEDS: IBUPROFEN 800 MG TABLET PO PRN (13:22)
[2019-09-03] MEDS: ACETAMINOPHEN 325 MG TABLET PO PRN (14:09)
[2019-09-03] MEDS: ATORVASTATIN CALCIUM 20 MG TABLET PO SCH (21:24)
--- NOTE | 2019-09-03 23:22 | EKG REPORT ---
SEVERITY:- ABNORMAL ECG - SINUS TACHYCARDIA ATRIAL PREMATURE COMPLEX ABNORMAL T, CONSIDER ISCHEMIA, LATERAL LEADS : Confirmed by: Lety Wiggins 03-Sep-2019 23:22:16
[2019-09-04 02:57] LABS: C DIFFICILE GDH NEGATIVE (NEGATIVE)
[2019-09-04] MEDS: NORMAL SALINE 1000 ML 1,000 ML IV PRN (03:29)
[2019-09-04] MEDS: HEPARIN SOD (PORCINE) 5,000 UNIT/ML 1 ML VIAL SUBCUT SCH ×3 (05:25→21:48)
[2019-09-04 05:27] LABS: HEMATOCRIT 38.4 % (37.9-51.0); HEMOGLOBIN 12.7 g/dL (13.5-17.0); MEAN CORPUSCULAR HEMOGLOBIN 30.7 pg (27.0-33.4); MEAN CORPUSCULAR HGB CONC 33.2 g/dL (32.0-36.0); MEAN CORPUSCULAR VOLUME 92 fl (80-97); PLATELET COUNT 173 10^3/uL (150-450); RED BLOOD COUNT 4.15 10^6/uL (4.35-5.55); RED CELL DISTRIBUTION WIDTH 14.4 % (11.5-14.0)
[2019-09-04 05:53] LABS: ANION GAP 7 (5-19); BLOOD UREA NITROGEN 15 mg/dL (7-20); CALCIUM 8.7 mg/dL (8.4-10.2); CARBON DIOXIDE 26 mmol/L (22-30); CHLORIDE 104 mmol/L (98-107); GLUCOSE 103 mg/dL (75-110); POTASSIUM 3.5 mmol/L (3.6-5.0)
[2019-09-04] MEDS: PHENAZOPYRIDINE HCL 100 MG TABLET PO SCH ×3 (06:43→22:38)
[2019-09-04] MEDS: INSULIN LISPRO 100 UNIT/ML 3 ML VIAL SUBCUT SCH ×4 (08:29→22:40)
[2019-09-04] MEDS: CEFTRIAXONE 1 GM/D5W RTU 1 GM/50 ML RTUPB IV SCH (09:45)
[2019-09-04] MEDS: LISINOPRIL 10 MG TABLET PO SCH (09:45)
[2019-09-04] MEDS: HYDROCHLOROTHIAZIDE 25 MG TABLET PO SCH (09:46)
[2019-09-04] MEDS: ALLOPURINOL 300 MG TABLET PO SCH (09:46)
[2019-09-04] MEDS: FAMOTIDINE 20 MG TABLET PO SCH ×2 (09:46→22:38)
[2019-09-04] MEDS: DOCUSATE SODIUM 100 MG CAPSULE PO SCH (09:49)
[2019-09-04] MEDS ORDERED: (PENDING PHARMACY ID) (Lisinopril/Hydrochlorothiazide [Lisinopril-Hctz 20-25 Mg Tab] 1 EAC PO SCH (10:00)
[2019-09-04] MEDS ORDERED: NORMAL SALINE 1000 ML 1,000 ML IV PRN (10:50)
--- NOTE | 2019-09-04 10:58 | PDOC PROGRESS REPORT ---
Subjective Progress Note for:: 09/04/19 Subjective:: JENNIFER CADE JR is a 69 year old male with a past medical history significant for hypertension, hyperlipidemia, DM 2, and obesity who was admitted 09/02/2019 with sepsis secondary to UTI. Patient was seen on morning rounds. He was found sitting up to the recliner, co mfortably, on room air. He reports that he is feeling much better today. He denies abdominal pain, flank pain and reports that his dysuria has improved. He does continue to have crescencio hematuria, although this is also noted to be decreased. T-max 101.8 last 24; 102.8 last 48 hrs. Denies chest pain, dyspnea, cough, nausea, and vomiting. Three loose stools yesterday; none yet today He has no other questions or concerns at this time. No concerns per nursing. Reason For Visit: SEPSIS, UTI Physical Exam Vital Signs: Temp Pulse Resp BP Pulse Ox 99.1 F 101 H 19 157/79 H 92 09/04/19 07:56 09/04/19 07:56 09/04/19 07:56 09/04/19 07:56 09/04/19 07:56 Intake & Output 09/03/19 09/04/19 09/05/19 06:59 06:59 06:59 Intake Total 5280 3897 Output Total 600 1850 Balance 4680 2047 Weight 124.4 kg 126.8 kg General appearance: PRESENT: no acute distress, cooperative - pleasant, morbidly obese, well-developed, well-nourished Head exam: PRESENT: atraumatic, normocephalic Eye exam: PRESENT: conjunctiva pink, EOMI, PERRLA. ABSENT: scleral icterus Mouth exam: PRESENT: moist, tongue midline Respiratory exam: PRESENT: clear to auscultation vernon, symmetrical, unlabored. ABSENT: rales, rhonchi, wheezes Cardiovascular exam: PRESENT: RRR. ABSENT: diastolic murmur, rubs, systolic murmur Vascular exam: PRESENT: normal capillary refill GI/Abdominal exam: PRESENT: normal bowel sounds, soft. ABSENT: distended, guarding, mass, organolmegaly, rebound, tenderness Rectal exam: PRESENT: deferred Extremities exam: PRESENT: full ROM. ABSENT: calf tenderness, clubbing, pedal edema Musculoskeletal exam: PRESENT: ambulatory Neurological exam: PRESENT: alert, awake, oriented to person, oriented to place, oriented to time, oriented to situation, CN II-XII grossly intact. ABSENT: motor sensory deficit Psychiatric exam: PRESENT: appropriate affect, normal mood. ABSENT: homicidal ideation, suicidal ideation Skin exam: PRESENT: dry, intact, warm. ABSENT: cyanosis, rash Results Laboratory Results: 09/04/19 04:23 09/04/19 04:23 09/03/19 09/04/19 09/04/19 17:20 04:23 04:23 WBC 12.0 H RBC 4.15 L Hgb 12.7 L Hct 38.4 MCV 92 MCH 30.7 MCHC 33.2 RDW 14.4 H Plt Count 173 Sodium 137.0 Potassium 3.5 L Chloride 104 Carbon Dioxide 26 Anion Gap 7 BUN 15 Creatinine 1.19 Est GFR ( Amer) > 60 Glucose 103 Calcium 8.7 Stool for White Cells NO WBCs SEEN 09/02/19 09:46 Clean Catch Midstream Urine Culture - Final Escherichia Coli Impressions: Chest X-Ray 09/02/19 09:35 IMPRESSION: NO SIGNIFICANT RADIOGRAPHIC FINDING IN THE CHEST. Abdomen/Pelvis CT 09/02/19 12:07 IMPRESSION: 1. No evidence of urinary tract stones or hydronephrosis. 2. Probable hemorrhagic cysts right kidney. Correlate with renal ultrasound to exclude solid lesion. 3. 3.2 cm distal aortic aneurysm. Renal Ultrasound 09/02/19 13:26 IMPRESSION: Mildly lobulated renal contours without defined lesion as seen on comparison CT. No hydronephrosis. Assessment and Plan - Diagnosis (1) Sepsis Qualifiers: Sepsis type: sepsis due to unspecified organism Severe sepsis acute organ dysfunction type: acute renal failure Severe sepsis shock status: without septic shock Is this a current diagnosis for this admission?: Yes Plan: Improving; Vital signs are improved (though with continued fevers), lactic acidosis has resolved, leukocytosis trending down. Patient presented with sepsis due to UTI, present on arrival, evidenced by fever, tachycardia, tachypnea leukocytosis, CHIARA, elevated lactic acid, and evidence of UTI. Blood cultures NTD Urine culture shows E. coli (sensitive to cephalosporins, fluroquinolones) Downgrade to telemetry. He is provided appropriate fluid resuscitation boluses followed by maintenance IV fluids. Continue IV Rocephin (2) UTI (urinary tract infection) Qualifiers: Urinary tract infection type: acute cystitis Hematuria presence: with hematuria Qualified Code(s): N30.01 - Acute cystitis with hematuria Is this a current diagnosis for this admission?: Yes Plan: Cultures as above IV Rocephin. Pyridium for discomfort. IV fluids and encourage p.o. fluid intake. Monitor for urinary retention r/t hematuria w/ clots (3) CHIARA (acute kidney injury) Is this a current diagnosis for this admission?: Yes Plan: Resolved. Creatinine 1.49-> 1.33-> 1.19 Patient was tachycardic with dry mucous membranes and UTI; concerning for prerenal CHIARA. He is provided generous IV fluids and appropriate sepsis resuscitation. Avoid nephrotoxic medications as able; renally dosed as appropriate. Follow-up chemistry. (4) Hypertensive urgency Is this a current diagnosis for this admission?: Yes Plan: Blood pressures are much improved; though remain hypertensive. Continue home dose lisinopril/hctz Consider addition of amlodipine IV hydralazine as needed for blood pressure control. Cardiac diet. (5) Diabetes Qualifiers: Diabetes mellitus type: type 2 Diabetes mellitus nursing home insulin use: w ithout nursing home use Is this a current diagnosis for this admission?: Yes Plan: Holding oral medications while admitted. Patient is placed on a consistent carb diet. Accu-Cheks before meals and at bedtime with Humalog for sliding scale coverage. Hypoglycemia protocol in place. - Time Time Spent with patient: 25-34 minutes Medications reviewed and adjusted accordingly: Yes Anticipated discharge: Home Within: within 72 hours - If Afebrile x48
[2019-09-04] MEDS: ACETAMINOPHEN 325 MG TABLET PO PRN (12:39)
[2019-09-04] MEDS: ATORVASTATIN CALCIUM 20 MG TABLET PO SCH (22:38)
[2019-09-05] MEDS: HEPARIN SOD (PORCINE) 5,000 UNIT/ML 1 ML VIAL SUBCUT SCH ×3 (05:36→21:38)
[2019-09-05] MEDS: PHENAZOPYRIDINE HCL 100 MG TABLET PO SCH ×3 (05:39→22:30)
[2019-09-05 06:26] LABS: HEMATOCRIT 36.1 % (37.9-51.0); HEMOGLOBIN 12.5 g/dL (13.5-17.0); MEAN CORPUSCULAR HEMOGLOBIN 31.5 pg (27.0-33.4); MEAN CORPUSCULAR HGB CONC 34.5 g/dL (32.0-36.0); MEAN CORPUSCULAR VOLUME 91 fl (80-97); PLATELET COUNT 177 10^3/uL (150-450); RED BLOOD COUNT 3.96 10^6/uL (4.35-5.55); RED CELL DISTRIBUTION WIDTH 14.2 % (11.5-14.0); WHITE BLOOD COUNT 6.7 10^3/uL (4.0-10.5)
[2019-09-05 06:47] LABS: ANION GAP 7 (5-19); BLOOD UREA NITROGEN 15 mg/dL (7-20); CALCIUM 8.9 mg/dL (8.4-10.2); CARBON DIOXIDE 29 mmol/L (22-30); CHLORIDE 101 mmol/L (98-107); GLUCOSE 108 mg/dL (75-110); POTASSIUM 3.6 mmol/L (3.6-5.0)
[2019-09-05] MEDS ORDERED: NORMAL SALINE 1000 ML 1,000 ML IV PRN (08:03)
[2019-09-05] MEDS: INSULIN LISPRO 100 UNIT/ML 3 ML VIAL SUBCUT SCH ×3 (08:32→16:36)
[2019-09-05] MEDS: HYDROCHLOROTHIAZIDE 25 MG TABLET PO SCH (09:18)
[2019-09-05] MEDS: FAMOTIDINE 20 MG TABLET PO SCH ×2 (09:18→21:37)
[2019-09-05] MEDS: ALLOPURINOL 300 MG TABLET PO SCH (09:19)
[2019-09-05] MEDS: LISINOPRIL 10 MG TABLET PO SCH (09:19)
[2019-09-05] MEDS: CEFTRIAXONE 1 GM/D5W RTU 1 GM/50 ML RTUPB IV SCH (09:24)
[2019-09-05] MEDS: DOCUSATE SODIUM 100 MG CAPSULE PO SCH (10:32)
[2019-09-05] MEDS ORDERED: CARVEDILOL 6.25 MG TABLET PO ONE (14:30)
--- NOTE | 2019-09-05 17:15 | PDOC PROGRESS REPORT ---
Subjective Progress Note for:: 09/05/19 Subjective:: JENNIFER CADE JR is a 69 year old male with a past medical history significant for hypertension, hyperlipidemia, DM 2, and obesity who was admitted 09/02/2019 with sepsis secondary to UTI. Patient was seen on morning rounds. He was found resting in bed, comfortably, o n room air. He reports that he is feeling well today. He denies abdominal pain, flank pain and reports that his dysuria has improved. Hematuria is significantly decreased. Hopeful to discharge home soon. T-max 100.7 last 24; 101.5 last 48 hrs. Denies chest pain, dyspnea, cough, nausea, vomiting, and diarrhea He has no other questions or concerns at this time. No concerns per nursing. Reason For Visit: SEPSIS, UTI Physical Exam Vital Signs: Temp Pulse Resp BP Pulse Ox 99.0 F 110 H 18 159/94 H 95 09/05/19 13:36 09/05/19 14:00 09/05/19 11:58 09/05/19 13:36 09/05/19 13:36 Intake & Output 09/04/19 09/05/19 09/06/19 06:59 06:59 06:59 Intake Total 3897 557 2577 Output Total 1850 1275 Balance 2047 -718 2577 Weight 126.8 kg 123.2 kg General appearance: PRESENT: no acute distress, cooperative - pleasant, morbidly obese, well-developed, well-nourished Head exam: PRESENT: atraumatic, normocephalic Eye exam: PRESENT: conjunctiva pink, EOMI, PERRLA. ABSENT: scleral icterus Mouth exam: PRESENT: moist, tongue midline Respiratory exam: PRESENT: clear to auscultation vernon, symmetrical, unlabored. ABSENT: rales, rhonchi, wheezes Cardiovascular exam: PRESENT: RRR, tachycardia - brief episodes HR 100-130. ABS ENT: diastolic murmur, rubs, systolic murmur Pulses: PRESENT: normal dorsalis pedis pul Vascular exam: PRESENT: normal capillary refill GI/Abdominal exam: PRESENT: normal bowel sounds, soft. ABSENT: distended, guarding, mass, organolmegaly, rebound, tenderness Rectal exam: PRESENT: deferred Extremities exam: PRESENT: full ROM. ABSENT: calf tenderness, clubbing, pedal edema Musculoskeletal exam: PRESENT: ambulatory Neurological exam: PRESENT: alert, awake, oriented to person, oriented to place, oriented to time, oriented to situation, CN II-XII grossly intact. ABSENT: motor sensory deficit Psychiatric exam: PRESENT: appropriate affect, normal mood. ABSENT: homicidal ideation, suicidal ideation Skin exam: PRESENT: dry, intact, warm. ABSENT: cyanosis, rash Results Laboratory Results: 09/05/19 06:12 09/05/19 06:12 09/05/19 09/05/19 06:12 06:12 WBC 6.7 RBC 3.96 L Hgb 12.5 L Hct 36.1 L MCV 91 MCH 31.5 MCHC 34.5 RDW 14.2 H Plt Count 177 Sodium 136.7 L Potassium 3.6 Chloride 101 Carbon Dioxide 29 Anion Gap 7 BUN 15 Creatinine 1.38 H Est GFR ( Amer) > 60 Glucose 108 Calcium 8.9 09/03/19 17:20 Stool - Stool - Final 09/03/19 17:20 Stool - Stool Stool Culture - Final NO SALMONELLA, SHIGELLA, CAMPYLOBACTER, OR E.COLI 0157 RECOVERED. NEGATIVE FOR SHIGA TOXINS 1&2. Impressions: Chest X-Ray 09/02/19 09:35 IMPRESSION: NO SIGNIFICANT RADIOGRAPHIC FINDING IN THE CHEST. Abdomen/Pelvis CT 09/02/19 12:07 IMPRESSION: 1. No evidence of urinary tract stones or hydronephrosis. 2. Probable hemorrhagic cysts right kidney. Correlate with renal ultrasound to exclude solid lesion. 3. 3.2 cm distal aortic aneurysm. Renal Ultrasound 09/02/19 13:26 IMPRESSION: Mildly lobulated renal contours without defined lesion as seen on comparison CT. No hydronephrosis. Assessment and Plan - Diagnosis (1) Sepsis Qualifiers: Sepsis type: sepsis due to unspecified organism Severe sepsis acute organ dysfunction type: acute renal failure Severe sepsis shock status: without septic shock Is this a current diagnosis for this admission?: Yes Plan: Resolved; Vital signs are improved (fever curve trending down), lactic acidosis has resolved, leukocytosis trending down. Patient presented with sepsis due to UTI, present on arrival, evidenced by feve r, tachycardia, tachypnea leukocytosis, CHIARA, elevated lactic acid, and evidence of UTI. Blood cultures NTD Urine culture shows E. coli (sensitive to cephalosporins, fluroquinolones) Downgraded to telemetry. He is provided appropriate fluid resuscitation boluses followed by maintenance IV fluids. Continue IV Rocephin; Day #4 (2) UTI (urinary tract infection) Qualifiers: Urinary tract infection type: acute cystitis Hematuria presence: with hematuria Qualified Code(s): N30.01 - Acute cystitis with hematuria Is this a current diagnosis for this admission?: Yes Plan: Cultures as above IV Rocephin. Pyridium for discomfort. IV fluids and encourage p.o. fluid intake. Monitor for urinary retention r/t hematuria w/ clots Anticipate readiness for d/c tomorrow if remains afebrile (3) CHIARA (acute kidney injury) Is this a current diagnosis for this admission?: Yes Plan: Resolved; likely at baseline. Creatinine 1.49-> 1.33-> 1.19-> 1.38 Patient was tachycardic with dry mucous membranes and UTI; concerning for prerenal CHIARA. He is provided generous IV fluids and appropriate sepsis resuscitation. Avoid nephrotoxic medications as able; renally dosed as appropriate. Follow-up chemistry. (4) Hypertensive urgency Is this a current diagnosis for this admission?: Yes Plan: Blood pressures are much improved; though remain hypertensive. Continue home dose lisinopril/hctz Have started Carvedilol IV hydralazine as needed for blood pressure control. Cardiac diet. (5) Diabetes Qualifiers: Diabetes mellitus type: type 2 Diabetes mellitus continuous churn buttermaker insulin use: without continuous churn buttermaker use Is this a current diagnosis for this admission?: Yes Plan: Holding oral medications while admitted. Patient is placed on a consistent carb diet. Accu-Cheks before meals and at bedtime with Humalog for sliding scale coverage. Hypoglycemia protocol in place. - Time Time Spent with patient: 25-34 minutes Medications reviewed and adjusted accordingly: Yes Anticipated discharge: Home Within: within 24 hours
[2019-09-05] MEDS: ATORVASTATIN CALCIUM 20 MG TABLET PO SCH (21:37)
[2019-09-05] MEDS: CARVEDILOL 6.25 MG TABLET PO SCH (21:37)
[2019-09-06] MEDS: INSULIN LISPRO 100 UNIT/ML 3 ML VIAL SUBCUT SCH ×3 (00:41→11:18)
[2019-09-06 05:55] LABS: HEMATOCRIT 37.4 % (37.9-51.0); HEMOGLOBIN 12.8 g/dL (13.5-17.0); MEAN CORPUSCULAR HGB CONC 34.1 g/dL (32.0-36.0); MEAN CORPUSCULAR VOLUME 91 fl (80-97); PLATELET COUNT 199 10^3/uL (150-450); RED BLOOD COUNT 4.13 10^6/uL (4.35-5.55); RED CELL DISTRIBUTION WIDTH 14.2 % (11.5-14.0); WHITE BLOOD COUNT 5.8 10^3/uL (4.0-10.5)
[2019-09-06 06:06] LABS: ANION GAP 9 (5-19); BLOOD UREA NITROGEN 17 mg/dL (7-20); CALCIUM 9.2 mg/dL (8.4-10.2); CARBON DIOXIDE 28 mmol/L (22-30); CHLORIDE 101 mmol/L (98-107); GLUCOSE 108 mg/dL (75-110); POTASSIUM 3.4 mmol/L (3.6-5.0)
[2019-09-06] MEDS: PHENAZOPYRIDINE HCL 100 MG TABLET PO SCH (06:10)
[2019-09-06] MEDS: HEPARIN SOD (PORCINE) 5,000 UNIT/ML 1 ML VIAL SUBCUT SCH (06:10)
[2019-09-06] MEDS: ALLOPURINOL 300 MG TABLET PO SCH (09:19)
[2019-09-06] MEDS: HYDROCHLOROTHIAZIDE 25 MG TABLET PO SCH (09:19)
[2019-09-06] MEDS: CARVEDILOL 6.25 MG TABLET PO SCH (09:19)
[2019-09-06] MEDS: FAMOTIDINE 20 MG TABLET PO SCH (09:19)
[2019-09-06] MEDS: DOCUSATE SODIUM 100 MG CAPSULE PO SCH (09:20)
[2019-09-06] MEDS: LISINOPRIL 10 MG TABLET PO SCH (09:20)
[2019-09-06] MEDS: CEFTRIAXONE 1 GM/D5W RTU 1 GM/50 ML RTUPB IV SCH (09:20)
[2019-09-06 10:34] VITALS: BP 159/94
--- NOTE | 2019-09-06 15:36 | PDOC DISCHARGE SUMMARY ---
Impression - Admit/DC Date/PCP Admission Date/Primary Care Provider: 09/02/19 16:06 TREVOR MOY Discharge Date: 09/06/19 - Discharge Diagnosis (1) Sepsis Is this a current diagnosis for this admission?: Yes (2) UTI (urinary tract infection) Is this a current diagnosis for this admission?: Yes (3) CHIARA (acute kidney injury) Is this a current diagnosis for this admission?: Yes (4) Hypertensive urgency Is this a current diagnosis for this admission?: Yes (5) Diabetes Is this a current diagnosis for this admission?: Yes - Additional Information Resuscitation Status: Full Code Discharge Diet: As Tolerated Discharge Activity: Activity As Tolerated, Balance Activity w/Rest Referrals: TREVOR MOY MD [Primary Care Provider] - 09/12/19 3:30 pm Prescriptions: Levofloxacin [Levaquin 500 mg Tablet] 500 mg PO DAILY 2 Days #2 tablet Home Medications: Allopurinol [Zyloprim 300 mg Tablet] 300 mg PO DAILY 09/03/19 Atorvastatin Calcium [Lipitor 20 mg Tablet] 20 mg PO QHS 09/03/19 Ergocalciferol (Vitamin D2) [Vitamin D2] 50,000 unit PO MO@1000 09/03/19 Lisinopril/Hydrochlorothiazide [Lisinopril-Hctz 20-25 mg Tab] 1 each PO DAILY 09/03/19 Metformin HCl 1,000 mg PO DAILY 09/03/19 Levofloxacin [Levaquin 500 mg Tablet] 500 mg PO DAILY 2 Days #2 tablet 09/06/19 History of Present Illiness History of Present Illness: As per admitting physician JENNIFER CADE JR is a 69 year old male with a past medical history significant for hypertension, hyperlipidemia, DM 2, and obesity who presented to the emergency department today with a complaint of Urinary frequency. He had had subjective fevers beginning last night along with dysuria and hematuria beginning yesterday. He denies nausea vomiting and flank pain tenderness. Evaluation emergency department revealed temperature 102.8, tachycardia (HR 137), tachypnea (RR 27) leukocytosis (WBC is 18.4) CHIARA (CR 1.49/BUN 20), elevated lactic acid 3.3, and urinalysis positive for UTI. CT abdomen/pelvis was negative for nephrolithiasis and hydronephrosis; probable hemorrhagic cyst to the right kidney which was confirmed by follow-up renal ultrasound. He was provided IV fluid bolus and Rocephin; referred to the hospitalist service for admission and management of the above-stated complaints findings Hospital Course Hospital Course: (1) Sepsis Resolved; likely cause glucose urinary tract infection. Patient presented with sepsis due to UTI, present on arrival, evidenced by fever, tachycardia, tachypnea leukocytosis, CHIARA, elevated lactic acid, and evidence of UTI. Was started on sepsis protocol and empiric IV antibiotics. Blood cultures negative. Urine culture shows E. coli (sensitive to cephalosporins, fluroquinolones) Received 5 days of IV Rocephin. Was switched to levofloxacin p.o. for another 2 days. Patient strongly advised to follow-up with PCP and urology to further investigate the cause of his UTI. (2) UTI (urinary tract infection) Cultures as above CT abdomen no evidence of nephrolithiasis or hydronephrosis. Probable hemorrhagic right kidney cyst which was ruled out by renal ultrasound. Please refer to CT and ultrasound report. Plan as per above. (3) CHIARA (acute kidney injury) Resolved; likely at baseline. Creatinine 1.49-> 1.33-> 1.19-> 1.38 He was provided generous IV fluids and appropriate sepsis resuscitation. Advised to avoid nephrotoxic meds. Advised follow-up with PCP. (4) Hypertensive urgency Much imporved. Not optimosed. Resumed home dose lisinopril/hctz IV hydralazine as needed for blood pressure control. Plan encouraged to follow-up with PCP for adjustment of his antihypertensive meds. (5) Diabetes Was placed on a consistent carb diet. Accu-Cheks before meals and at bedtime with Humalog for sliding scale coverage. Hypoglycemia protocol in place. Advised to resume home meds upon discharge. Outpatient PCP follow-up. Physical Exam Vital Signs: Temp Pulse Resp BP Pulse Ox 97.5 F 80 18 159/94 H 96 09/06/19 10:33 09/06/19 10:33 09/06/19 10:33 09/06/19 10:33 09/06/19 10:33 Intake & Output 09/05/19 09/06/19 09/07/19 06:59 06:59 06:59 Intake Total 892 3582 50 Output Total 5475 698 Balance -698 6082 50 Weight 123.2 kg 123.7 kg General appearance: PRESENT: no acute distress, obese, well-developed, well- nourished Head exam: PRESENT: atraumatic, normocephalic Respiratory exam: PRESENT: clear to auscultation vernon. ABSENT: rales, rhonchi, wheezes Cardiovascular exam: PRESENT: RRR. ABSENT: diastolic murmur, rubs, systolic murmur GI/Abdominal exam: PRESENT: normal bowel sounds, soft. ABSENT: distended, guarding, mass, organolmegaly, rebound, tenderness Extremities exam: PRESENT: full ROM. ABSENT: calf tenderness, clubbing, pedal edema Neurological exam: PRESENT: alert, awake, oriented to person, oriented to place, oriented to time, oriented to situation, CN II-XII grossly intact. ABSENT: motor sensory deficit Results Laboratory Results: WBC 5.8 10^3/uL (4.0-10.5) 09/06/19 04:46 RBC 4.13 10^6/uL (4.35-5.55) L 09/06/19 04:46 Hgb 12.8 g/dL (13.5-17.0) L 09/06/19 04:46 Hct 37.4 % (37.9-51.0) L 09/06/19 04:46 MCV 91 fl (80-97) 09/06/19 04:46 MCH 31.0 pg (27.0-33.4) 09/06/19 04:46 MCHC 34.1 g/dL (32.0-36.0) 09/06/19 04:46 RDW 14.2 % (11.5-14.0) H 09/06/19 04:46 Plt Count 199 10^3/uL (150-450) 09/06/19 04:46 Lymph % (Auto) Not Reportable 09/03/19 05:08 Burke % (Auto) Not Reportable 09/03/19 05:08 Eos % (Auto) Not Reportable 09/03/19 05:08 Baso % (Auto) Not Reportable 09/03/19 05:08 Absolute Neuts (auto) Not Reportable 09/03/19 05:08 Absolute Lymphs (auto) Not Reportable 09/03/19 05:08 Absolute Monos (auto) Not Reportable 09/03/19 05:08 Absolute Eos (auto) Not Reportable 09/03/19 05:08 Absolute Basos (auto) Not Reportable 09/03/19 05:08 Total Counted 100 09/03/19 05:08 Seg Neutrophils % Not Reportable 09/03/19 05:08 Seg Neuts % (Manual) 76 % (42-78) 09/03/19 05:08 Band Neutrophils % 4 % (3-5) 09/03/19 05:08 Lymphocytes % (Manual) 14 % (13-45) 09/03/19 05:08 Monocytes % (Manual) 5 % (3-13) 09/03/19 05:08 Eosinophils % (Manual) 1 % (0-6) 09/03/19 05:08 Basophils % (Manual) 0 % (0-2) 09/03/19 05:08 Abs Neuts (Manual) 16.7 10^3/uL (1.7-8.2) H 09/03/19 05:08 Abs Lymphs (Manual) 2.9 10^3/uL (0.5-4.7) 09/03/19 05:08 Abs Monocytes (Manual) 1.0 10^3/uL (0.1-1.4) 09/03/19 05:08 Absolute Eos (Manual) 0.2 10^3/uL (0.0-0.6) 09/03/19 05:08 Abs Basophils (Manual) 0.0 10^3/uL (0.0-0.2) 09/03/19 05:08 Platelet Comment ADEQUATE 09/03/19 05:08 RBC Morph Comment NORMO-CYTIC/CHROMIC 09/03/19 05:08 PT 13.6 SEC (11.4-15.4) 09/02/19 09:46 INR 1.04 09/02/19 09:46 VBG pH 7.41 (7.30-7.42) 09/02/19 09:46 VBG pCO2 45.1 mmHg (35-63) 09/02/19 09:46 VBG HCO3 27.8 mmol/L (20-32) 09/02/19 09:46 VBG Base Excess 2.6 mmol/L 09/02/19 09:46 Sodium 138.0 mmol/L (137-145) 09/06/19 04:46 Potassium 3.4 mmol/L (3.6-5.0) L 09/06/19 04:46 Chloride 101 mmol/L (98-107) 09/06/19 04:46 Carbon Dioxide 28 mmol/L (22-30) 09/06/19 04:46 Anion Gap 9 (5-19) 09/06/19 04:46 BUN 17 mg/dL (7-20) 09/06/19 04:46 Creatinine 1.16 mg/dL (0.52-1.25) 09/06/19 04:46 Est GFR ( Amer) > 60 (>60) 09/06/19 04:46 Est GFR (MDRD) Non-Af > 60 (>60) 09/06/19 04:46 Glucose 108 mg/dL (75-110) 09/06/19 04:46 POC Glucose 127 mg/dL (70-110) H 09/06/19 08:06 Lactic Acid 0.9 mmol/L (0.7-2.1) 09/03/19 08:14 Calcium 9.2 mg/dL (8.4-10.2) 09/06/19 04:46 Total Bilirubin 1.0 mg/dL (0.2-1.3) 09/02/19 09:46 Direct Bilirubin 0.0 mg/dL (0.0-0.4) 09/02/19 09:46 Neonat Total Bilirubin Not Reportable 09/02/19 09:46 Neonat Direct Bilirubin Not Reportable 09/02/19 09:46 Neonat Indirect Bili Not Reportable 09/02/19 09:46 AST 23 U/L (17-59) 09/02/19 09:46 ALT 20 U/L (<50) 09/02/19 09:46 Alkaline Phosphatase 88 U/L (38-126) 09/02/19 09:46 Total Protein 7.3 g/dL (6.3-8.2) 09/02/19 09:46 Albumin 4.3 g/dL (3.5-5.0) 09/02/19 09:46 Urine Color YELLOW 09/02/19 09:46 Urine Appearance CLOUDY 09/02/19 09:46 Urine pH 6.0 (5.0-9.0) 09/02/19 09:46 Ur Specific [place] 1.020 06/06/20 09:46 Urine Protein 100 mg/dL (NEGATIVE) H 09/02/19 09:46 Urine Glucose (UA) NEGATIVE mg/dL (NEGATIVE) 09/02/19 09:46 Urine Ketones NEGATIVE mg/dL (NEGATIVE) 09/02/19 09:46 Urine Blood LARGE (NEGATIVE) H 09/02/19 09:46 Urine Nitrite NEGATIVE (NEGATIVE) 09/02/19 09:46 Urine Bilirubin NEGATIVE (NEGATIVE) 09/02/19 09:46 Urine Urobilinogen NEGATIVE mg/dL (<2.0) 09/02/19 09:46 Ur Leukocyte Esterase LARGE (NEGATIVE) H 09/02/19 09:46 Urine WBC (Auto) >182 /HPF 09/02/19 09:46 Urine RBC (Auto) >182 /HPF 09/02/19 09:46 Urine WBC Clumps MANY /HPF 09/02/19 09:46 Squamous Epi Cells Auto 3 /HPF 09/02/19 09:46 Urine Mucus (Auto) OCC /LPF 09/02/19 09:46 Urine Ascorbic Acid NEGATIVE (NEGATIVE) 09/02/19 09:46 Stool for White Cells NO WBCs SEEN 09/03/19 17:20 Stl C. Difficile GDH Ag NEGATIVE (NEGATIVE) 09/03/19 17:20 Stl C.difficile Tox A&B NEGATIVE (NEGATIVE) 09/03/19 17:20 Blood Type O POSITIVE 09/02/19 16:15 Antibody Screen NEGATIVE 09/02/19 16:15 Impressions: Chest X-Ray 09/02/19 09:35 IMPRESSION: NO SIGNIFICANT RADIOGRAPHIC FINDING IN THE CHEST. Abdomen/Pelvis CT 09/02/19 12:07 IMPRESSION: 1. No evidence of urinary tract stones or hydronephrosis. 2. Probable hemorrhagic cysts right kidney. Correlate with renal ultrasound to exclude solid lesion. 3. 3.2 cm distal aortic aneurysm. Renal Ultrasound 09/02/19 13:26 IMPRESSION: Mildly lobulated renal contours without defined lesion as seen on comparison CT. No hydronephrosis. Stroke Is this a Stroke Patient?: No Acute Heart Failure - Is this a Heart Failure Patient?: No
== END 2019-09-06 11:00 | disposition home or self-care (01) | DRG 872 ==
LOC: ER 08:12 → EH 16:06 → 3N 17:47
PROVIDERS: ADMIT Family Medicine; ATTEND Internal Medicine
DX: A41.9 Sepsis, unspecified organism (principal); N30.01 Acute cystitis with hematuria; N17.9 Acute kidney failure, unspecified; I10 Essential (primary) hypertension; E78.5 Hyperlipidemia, unspecified; E11.9 Type 2 diabetes mellitus without complications; E66.9 Obesity, unspecified; I16.0 Hypertensive urgency
CPT/HCPCS: 36415; 71045; 74176; 76770; 80048; 80053; 81001; 82803; 82962; 83605; 85025; 85027; 85610; 86850; 86900; 86901; 87040; 87045; 87086; 87088; 87186; 87205; 87324; 87449; 89055; 93005; 93010; 96361; 96365; 99285; J0696; J1644; J3490; J7030; J7120

== ENCOUNTER 2020-01-03 09:45 | Emergency (ER) | payer MEDICARE, OTHER ==
--- NOTE | 2020-01-03 10:41 | RADIOLOGY REPORT (SQ) ---
EXAM DESCRIPTION: CHEST SINGLE VIEW IMAGES COMPLETED DATE/TIME: 01/03/2020 10:27 am REASON FOR STUDY: sob COMPARISON: 09/02/2019 EXAM PARAMETERS: NUMBER OF VIEWS: One view. TECHNIQUE: Single frontal radiographic view of the chest acquired. RADIATION DOSE: NA LIMITATIONS: None. FINDINGS: LUNGS AND PLEURA: No opacities, masses or pneumothorax. No pleural effusion. MEDIASTINUM AND HILAR STRUCTURES: No masses. Contour normal. HEART AND VASCULAR STRUCTURES: Heart normal in size. Normal vasculature. BONES: No acute findings. HARDWARE: None in the chest. OTHER: No other significant finding. IMPRESSION: No evidence of acute cardiopulmonary abnormality. TECHNICAL DOCUMENTATION: JOB ID: [id number] 2010 [employer]- All Rights Reserved Reading location - IP/workstation name: [email or web address]
--- NOTE | 2020-01-03 10:50 | ER Document Report ---
ED Fever - General Chief Complaint: Fever Stated Complaint: WEAKNESS Time Seen by Provider: 01/03/20 10:28 Primary Care Provider: TREVOR MOY MD [Primary Care Provider] - Follow up as needed Notes: CHIEF COMPLAINT: Not feeling well for 5 days HPI: 70-year-old male with history of hypertension, type 2 diabetes, prior AK that had no intervention 20 years ago presenting for not feeling well over the last 5 days. Has had subjective body ache myalgia and low-grade fevers. Patient saw his PCP 3 days ago and did get a flu shot. States his PCP did not otherwise address his other symptoms. Today the patient denies abdominal pain nausea or vomiting. The patient does complain of slight shortness of breath with exertional activities but no chest discomfort. No headache or sore throat. ROS: See HPI - all other systems were reviewed and are otherwise negative Constitutional: no fever Eyes: no drainage, no blurred vision ENT: no runny nose, no sore throat Cardiovascular: no chest pain Resp: + SOB, + cough GI: no vomiting, no diarrhea, no abdominal pain : no dysuria Integumentary: no rash Allergy: no hives Musculoskeletal: no extremity pain or swelling Neurological: no numbness/tingling, + generalized weakness MEDICATIONS: I agree with the patient medications as charted by the RN. ALLERGIES: I agree with the allergies as charted by the RN. PAST MEDICAL HISTORY/PAST SURGICAL HISTORY: Reviewed and agree as charted by RN. SOCIAL HISTORY: Reviewed and agree as charted by RN. FAMILY HISTORY: No significant familial comorbid conditions directly related to patient complaint EXAM: Reviewed vital signs as charted by RN. CONSTITUTIONAL: Alert and oriented and responds appropriately to questions. Well-appearing; well-nourished HEAD: Normocephalic; atraumatic EYES: PERRL; Conjunctivae clear, sclerae non-icteric ENT: normal nose; no rhinorrhea; moist mucous membranes; pharynx without lesions noted, no uvula edema or deviation, no tonsillar hypertrophy, phonation normal NECK: Supple without meningismus; non-tender; no cervical lymphadenopathy, no masses CARD: RRR; no murmurs, no clicks, no rubs, no gallops; symmetric distal pulses RESP: Normal chest excursion without splinting or tachypnea; breath sounds clear and equal bilaterally; no wheezes, no rhonchi, no rales, pulse oximetry 90 to 92% on room air mildly hypoxic. Improved to 95% on 2 L nasal cannula ABD/GI: Normal bowel sounds; non-distended; soft, non-tender, no rebound, no guarding; no palpable organomegaly or masses. BACK: The back appears normal and is non-tender to palpation, there is no CVA tenderness EXT: Normal ROM in all joints; non-tender to palpation; no cyanosis, no effusions, no edema SKIN: Normal color for age and race; warm; dry; good turgor; no acute lesions noted NEURO: Moves all extremities equally; Motor and sensory function intact PSYCH: The patient's mood and manner are appropriate. Grooming and personal hygiene are appropriate. MDM: 70-year-old male presenting for body ache and myalgia with subjective fevers with some shortness of breath over the last 5 days. Saw his PCP 3 days ago had a flu shot but did not feel like it helped with his other symptoms. Patient is mildly hypoxic here reports no lung history including COPD or emphysema. His chest x-ray does not show evidence of a significant infiltrate but given his hypoxia I am concerned for possible pneumonia. Pulmonary embolus would also be in the differential. Baseline screening labs were sent, will add troponin, plan for CTA of the chest to evaluate for PE or pneumonia TRAVEL OUTSIDE OF THE [place] IN LAST 30 DAYS: No - Related Data Allergies/Adverse Reactions: No Known Allergies Allergy (Verified 09/02/19 09:54) Past Medical History - Social History Smoking Status: Unknown if Ever Smoked Family History: Reviewed & Not Pertinent - Past Medical History Cardiac Medical History: Reports: Hx Hypercholesterolemia, Hx Hypertension Endocrine Medical History: Reports: Hx Diabetes Mellitus Type 2 Musculoskeletal Medical History: Reports Hx Arthritis Psychiatric Medical History: Denies: Hx Depression Past Surgical History: Reports: Hx Orthopedic Surgery - rt ankle - Immunizations Hx Diphtheria, Pertussis, Tetanus Vaccination: Yes Physical Exam - Vital signs Vitals: Temp Pulse Resp BP Pulse Ox 99.7 F 96 22 H 109/79 92 01/03/20 09:54 01/03/20 09:54 01/03/20 09:54 01/03/20 09:54 01/03/20 09:54 Course - Re-evaluation Re-evalutation: 01/03/20 13:01 Patient's creatinine was elevated at 2.05. He is in acute renal insufficiency. This is elevated from his baseline. CT of the chest had to be obtained without contrast secondary to this, I do suspect pneumonia more so than pulmonary embolus causing his symptoms. I have reviewed his CT and waiting on the radiology read although I suspect likely multifocal pneumonia causing his hypoxia. Will give Rocephin initially. Will give Zithromax orally. 01/03/20 14:12 Patient pulse oximetry is 95% on room air he is in no distress no respiratory distress. We have hydrated the patient. I believe that he does have pneumonia based on his CT findings. I do believe that he also likely has COVID. His study is pending for COVID he will self quarantine. We will ambulate the patient to ensure that he does not become significantly hypoxic with ambulation. If he maintains a saturation and continues to look as well as he does anticipate that he may be discharged with antibiotics to treat the pneumonia, albuterol inhaler, Decadron, hydration, close follow-up with return instructions 01/03/20 14:[address] Egan, attending. Patient shows mild renal insufficiency and pneumonia. Will ambulate if he does not drop his O2 saturation and continues to look well anticipate he will be discharged with close follow-up 01/03/20 14:46 Pulse oximetry maintaining at 94 to 95% will discharge home on Zithromax, albuterol, Decadron, close follow-up PCP return instructions - Vital Signs Vital signs: Temp Pulse Resp BP Pulse Ox 99.2 F 96 20 127/72 H 95 01/03/20 14:24 01/03/20 09:54 01/03/20 14:24 01/03/20 14:24 01/03/20 14:24 - Laboratory Result Diagrams: 01/03/20 11:00 01/03/20 11:00 Laboratory results interpreted by me: 01/03/20 01/03/20 11:00 11:00 RDW 14.4 H Lymph % (Auto) 9.4 L Seg Neutrophils % 78.3 H Chloride 97 L BUN 40 H Creatinine 2.05 H Est GFR ( Amer) 39 L Est GFR (MDRD) Non-Af 32 L Glucose 145 H Discharge - Discharge Clinical Impression: Hypoxia, Person under investigation for COVID-19 Pneumonia Qualifiers: Pneumonia type: due to unspecified organism Laterality: bilateral Lung locatio n: unspecified part of lung Qualified Code(s): J18.9 - Pneumonia, unspecified organism Condition: Stable Disposition: HOME, SELF-CARE Additional Instructions: It was noted on your work-up today that you appear to have pneumonia. Take the antibiotics as prescribed. Use the albuterol inhaler 2 puffs every 4 hours as needed for shortness of breath, cough or wheezing. Take the Decadron as prescribed. There is some concern about possible COVID-19, your test should result within 2 to 5 days and you should receive notification from the hospital about your test results. Self quarantine at home pending your test results. If you have any worsening of your symptoms please return to the emergency department for reevaluation. Please call your primary care provider to discuss close follow-up in the office. Prescriptions: Dexamethasone [Decadron 4 Mg Tablet] 4 mg PO DAILY #7 tablet Albuterol Sulfate [Proair HFA Inhalation Aerosol 8.5 gm MDI] 2 puff IH Q4H PRN #1 mdi PRN Reason: Azithromycin [Zithromax 250 mg Tablet] 250 mg PO ASDIR PRN #6 tablet PRN Reason: Referrals: TREVOR MOY MD [Primary Care Provider] - Follow up as needed
[2020-01-03] MEDS ORDERED: IPRATROPIUM/ALBUTEROL 0.5-2.5 MG/3 ML AMPUL NEB ONE (11:03)
[2020-01-03 11:23] LABS: ABSOLUTE LYMPHOCYTES (AUTO) 0.5 10^3/uL (0.5-4.7); ABSOLUTE MONOCYTES (AUTO) 0.6 10^3/uL (0.1-1.4); ABSOLUTE NEUT (AUTO) 4.1 10^3/uL (1.7-8.2); BASOPHILS % (AUTO) 0.4 % (0-2); EOSINOPHILS % (AUTO) 0.1 % (0-6); HEMATOCRIT 40.4 % (37.9-51.0); HEMOGLOBIN 14.1 g/dL (13.5-17.0); LYMPHOCYTES % (AUTO) 9.4 % (13-45); MEAN CORPUSCULAR HEMOGLOBIN 31.2 pg (27.0-33.4); MEAN CORPUSCULAR HGB CONC 34.8 g/dL (32.0-36.0); MEAN CORPUSCULAR VOLUME 90 fl (80-97); MONOCYTES % (AUTO) 11.8 % (3-13); PLATELET COUNT 189 10^3/uL (150-450); RED BLOOD COUNT 4.51 10^6/uL (4.35-5.55); RED CELL DISTRIBUTION WIDTH 14.4 % (11.5-14.0); SEGMENTED NEUTROPHILS % (AUTO) 78.3 % (42-78); TOTAL CELLS COUNTED % (AUTO) 100 %; WHITE BLOOD COUNT 5.2 10^3/uL (4.0-10.5)
[2020-01-03 11:44] LABS: ALBUMIN 4.1 g/dL (3.5-5.0); ALKALINE PHOSPHATASE 74 U/L (38-126); ANION GAP 11 (5-19); ASPARTATE AMINO TRANSFERASE 54 U/L (17-59); BILIRUBIN,DIRECT 0.4 mg/dL (0.0-0.4); BILIRUBIN,TOTAL 0.7 mg/dL (0.2-1.3); BLOOD UREA NITROGEN 40 mg/dL (7-20); CARBON DIOXIDE 30 mmol/L (22-30); CHLORIDE 97 mmol/L (98-107); GLUCOSE 145 mg/dL (75-110); POTASSIUM 3.8 mmol/L (3.6-5.0); TOTAL PROTEIN 7.6 g/dL (6.3-8.2)
[2020-01-03 11:52] LABS: A TYPE INFLUENZA AG NEGATIVE (NEGATIVE); B INFLUENZA AG NEGATIVE (NEGATIVE)
[2020-01-03] MEDS ORDERED: NORMAL SALINE 1000 ML 1,000 ML IV ONE (11:59)
[2020-01-03] MEDS ORDERED: CEFTRIAXONE 1 GM/D5W RTU 1 GM/50 ML RTUPB IV ONE (13:00)
[2020-01-03] MEDS ORDERED: AZITHROMYCIN 250 MG TABLET PO ONE (13:02)
--- NOTE | 2020-01-03 13:33 | RADIOLOGY REPORT (SQ) ---
EXAM DESCRIPTION: CT CHEST WITHOUT IMAGES COMPLETED DATE/TIME: 01/03/2020 1:07 pm REASON FOR STUDY: PE or pneumonia COMPARISON: Chest x-ray 01/03/2020 TECHNIQUE: CT scan performed of the chest without intravenous contrast. Images reviewed with lung, soft tissue and bone windows. Reconstructed coronal and sagittal MPR images reviewed. All images st ored on PACS. All CT scanners at this facility use dose modulation, iterative reconstruction, and/or weight based d osing when appropriate to reduce radiation dose to as low as reasonably achievable (ALARA). [facility]: Dose Right [facility]: CareDose [facility]: Dose Right [facility]: Teradose 4D [facility]: Smart [employer] Software RADIATION DOSE: CT Rad equipment meets quality standard of care and radiation dose reduction techniq ues were employed. CTDIvol: 19.1 mGy. DLP: 659 mGy-cm. mGy. LIMITATIONS: No technical limitations. FINDINGS: LUNGS AND PLEURA: There are a scattered peripheral ground-glass infiltrates in the upper a nd lower lobes. No definable masses. No pleural effusions. HILAR AND MEDIASTINAL STRUCTURES: No identified masses or abnormal nodes. No obvious aneurysm. HEART AND VASCULAR STRUCTURES: No aneurysm. No pericardial effusion. UPPER ABDOMEN: No significant findings. Limited exam. THYROID AND OTHER SOFT TISSUES: No masses. No adenopathy. BONES: No significant finding. HARDWARE: None in the chest. OTHER: No other significant findings. IMPRESSION: There are peripheral ground-glass infiltrates bilaterally suggestive of an atypical infe ctious/ inflammatory process. TECHNICAL DOCUMENTATION: JOB ID: [id number] Quality ID # [id number]: Final reports with documentation of one or more dose reduction techniques (e.g., Au tomated exposure control, adjustment of the mA and/or kV according to patient size, use of iterative reconstruction technique) 2010 [employer]- All Rights Reserved Reading location - IP/workstation name: [email or web address]
[2020-01-03] MEDS ORDERED: DEXAMETHASONE SOD PHOS INJ 10 MG/1 ML VIAL IV ONE (14:12)
[2020-01-03 14:26] VITALS: BP 127/72
[2020-01-03 14:49] LABS: APPEARANCE,URINE CLEAR; BILIRUBIN,URINE NEGATIVE (NEGATIVE); COLOR,URINE YELLOW; GLUCOSE, URINE NEGATIVE (NEGATIVE); KETONES,URINE NEGATIVE (NEGATIVE); LEUKOCYTE ESTERASE,URINE NEGATIVE (NEGATIVE); NITRITE,URINE NEGATIVE (NEGATIVE); PROTEIN,URINE 100 mg/dL (NEGATIVE); URINE SPECIFIC GRAVITY 1.015; UROBILINOGEN,URINE NEGATIVE mg/dL (<2.0)
--- NOTE | 2020-01-03 15:16 | EKG REPORT ---
SEVERITY:- OTHERWISE NORMAL ECG - SINUS TACHYCARDIA : Confirmed by: Nury Terrazas MD 03-Jan-2020 15:15:08
== END 2020-01-03 15:40 | disposition home or self-care (01) ==
LOC: ER 09:45
DX: J18.9 Pneumonia, unspecified organism (principal); R09.02 Hypoxemia; Z20.828 Contact with and (suspected) exposure to other viral communicable diseases; R50.9 Fever, unspecified; R53.1 Weakness; I10 Essential (primary) hypertension; E11.9 Type 2 diabetes mellitus without complications; E78.00 Pure hypercholesterolemia, unspecified; I25.2 Old myocardial infarction
CPT/HCPCS: 93005; 94640; 99285; 96361; 96375; 96365; 36415; 87040; 85025; 80053; 81001; 84484; 87804; 71045; 71250; 93010; U0003; A9270; J7030; J0696; J1100; C9803; 87635

== ENCOUNTER 2020-01-06 10:41 | Inpatient (IN) | payer MEDICARE, OTHER ==
[2020-01-06 11:53] LABS: VENOUS BLOOD BASE EXCESS 4.2 mmol/L; VENOUS BLOOD HCO3 29.1 mmol/L (20-32); VENOUS BLOOD PCO2 44.1 mmHg (35-63); VENOUS BLOOD PH 7.44 (7.30-7.42)
[2020-01-06 11:58] LABS: ABSOLUTE LYMPHOCYTES (AUTO) 0.5 10^3/uL (0.5-4.7); ABSOLUTE MONOCYTES (AUTO) 0.9 10^3/uL (0.1-1.4); ABSOLUTE NEUT (AUTO) 7.3 10^3/uL (1.7-8.2); BASOPHILS % (AUTO) 0.2 % (0-2); HEMATOCRIT 41.3 % (37.9-51.0); HEMOGLOBIN 14.1 g/dL (13.5-17.0); LYMPHOCYTES % (AUTO) 5.3 % (13-45); MEAN CORPUSCULAR HEMOGLOBIN 30.9 pg (27.0-33.4); MEAN CORPUSCULAR VOLUME 91 fl (80-97); PLATELET COUNT 269 10^3/uL (150-450); RED BLOOD COUNT 4.55 10^6/uL (4.35-5.55); RED CELL DISTRIBUTION WIDTH 14.1 % (11.5-14.0); SEGMENTED NEUTROPHILS % (AUTO) 84.5 % (42-78); TOTAL CELLS COUNTED % (AUTO) 100 %; WHITE BLOOD COUNT 8.7 10^3/uL (4.0-10.5)
[2020-01-06 12:13] LABS: ALKALINE PHOSPHATASE 66 U/L (38-126); ANION GAP 13 (5-19); ASPARTATE AMINO TRANSFERASE 43 U/L (17-59); BILIRUBIN,DIRECT 0.4 mg/dL (0.0-0.4); BILIRUBIN,TOTAL 0.7 mg/dL (0.2-1.3); BLOOD UREA NITROGEN 41 mg/dL (7-20); C-REACTIVE PROTEIN 61.7 mg/L (<10.0); CALCIUM 9.5 mg/dL (8.4-10.2); CARBON DIOXIDE 28 mmol/L (22-30); CHLORIDE 97 mmol/L (98-107); CREATINE KINASE 201 U/L (55-170); GLUCOSE 138 mg/dL (75-110); POTASSIUM 4.6 mmol/L (3.6-5.0); TOTAL PROTEIN 7.3 g/dL (6.3-8.2)
--- NOTE | 2020-01-06 12:16 | RADIOLOGY REPORT (SQ) ---
EXAM DESCRIPTION: CHEST SINGLE VIEW IMAGES COMPLETED DATE/TIME: 01/06/2020 11:50 am REASON FOR STUDY: COVID-19 pneumonia COMPARISON: 01/03/2020 TECHNIQUE: Single frontal radiographic view of the chest acquired. NUMBER OF VIEWS: One view. LIMITATIONS: None. FINDINGS: LUNGS AND PLEURA: No pneumothorax. Patchy left basilar interstitial and airspace opacitie s. No significant Pleural effusion. Right lung appears clear. MEDIASTINUM AND HILAR STRUCTURES: Stable. HEART AND VASCULAR STRUCTURES: Stable. BONES: No acute findings. HARDWARE: None in the chest. OTHER: No other significant finding. IMPRESSION: Patchy left basilar interstitial and airspace opacities. TECHNICAL DOCUMENTATION: JOB ID: [id number] 2010 [employer]- All Rights Reserved Reading location - IP/workstation name: [email or web address]
--- NOTE | 2020-01-06 13:19 | ER Document Report ---
Entered by MEKHI SMITH SCRIBE 01/06/20 1101 Acting as scribe for:ENOCH YAN MD ED Respiratory Problem - General Stated Complaint: SHORTNESS OF BREATH Time Seen by Provider: 01/06/20 10:59 Mode of Arrival: Wheelchair Information source: Patient Notes: This 70 year old male patient diagnosed with COVID here three days ago on 01/02 presents to the emergency department today with complaints of shortness of breath. He reports that his breathing got worse the day after he was seen here and it has remained bad. Patient had a room air oxygen saturation of 81%, he ran to 88% on 2L, 90% on 3L, and 95-97% on 4L. His cough has continued to be non-productive. TRAVEL OUTSIDE OF THE [place] IN LAST 30 DAYS: No - Related Data Allergies/Adverse Reactions: No Known Allergies Allergy (Verified 09/02/19 09:54) Past Medical History - Social History Smoking Status: Former Smoker - Quit 25 years ago Cigarette use (# per day): No Chew tobacco use (# tins/day): No Smoking Education Provided: No Frequency of alcohol use: None Drug Abuse: None Occupation: Retired Lives with: Spouse/Significant other Family History: Reviewed & Not Pertinent - Past Medical History Cardiac Medical History: Reports: Hx Hypercholesterolemia, Hx Hypertension Endocrine Medical History: Reports: Hx Diabetes Mellitus Type 2 Musculoskeletal Medical History: Reports Hx Arthritis Past Surgical History: Reports: Hx Orthopedic Surgery - ORIF ankle - Immunizations Hx Diphtheria, Pertussis, Tetanus Vaccination: Yes Physical Exam - Vital signs Vitals: Temp Pulse Resp BP Pulse Ox 98.8 F 89 18 132/74 H 83 L 01/06/20 10:45 01/06/20 10:45 01/06/20 10:45 01/06/20 10:45 01/06/20 10:45 - Notes Notes: Physical Exam: General: Alert, appears tired and weak. HEENT: Normocephalic. Atraumatic. PERRL. Extraocular movements intact. Oropharynx clear. Neck: Supple. Non-tender. Respiratory: Moderate respiratory distress. Coarse breath sounds bilaterally. Cardiovascular: Regular rate and rhythm. Abdominal: Normal Inspection. Non-tender. No distension. Normal Bowel Sounds. Back: No gross abnormalities. Extremities: Moves all four extremities. Upper extremities: Normal inspection. Normal ROM. Lower extremities: Normal inspection. No edema. Normal ROM. Neurological: Normal cognition. AAOx4. Normal speech. Psychological: Normal affect. Normal Mood. Skin: Warm. Dry. Normal color. Course - Vital Signs Vital signs: Temp Pulse Resp BP Pulse Ox 99.3 F 78 16 132/88 H 98 01/06/20 16:21 01/06/20 17:18 01/06/20 17:18 01/06/20 16:21 01/06/20 17:18 - Laboratory Result Diagrams: 01/06/20 11:30 01/06/20 11:30 Laboratory results interpreted by me: 01/06/20 01/06/20 01/06/20 11:30 11:30 11:30 RDW 14.1 H Lymph % (Auto) 5.3 L Seg Neutrophils % 84.5 H VBG pH 7.44 H Chloride 97 L BUN 41 H Creatinine 1.38 H Est GFR (MDRD) Non-Af 51 L Glucose 138 H Lactate Dehydrogenase 280 H Creatine Kinase 201 H C-Reactive Protein 61.7 H - Diagnostic Test Radiology reviewed: Reports reviewed - Chest x-ray shows patchy left basilar interstitial and airspace opacities. - EKG Interpretation by Me EKG shows normal: Sinus rhythm, Hodges, Intervals, QRS Complexes, ST-T Waves Rate: Normal - 85 Rhythm: NSR Hodges/QRS: Left axis deviation - Consults Dr. Chandler Time consulted: 13:24 Consulted provider: will come to ER Discharge - Discharge Clinical Impression: Acute hypoxemic respiratory failure due to COVID-19, Dehydration Diabetes Qualifiers: Diabetes mellitus type: type 2 Diabetes mellitus terminal gauger insulin use: unspecified long-term insulin use status Diabetes mellitus complication status: without complication Qualified Code(s): E11.9 - Type 2 diabetes mellitus without complications Condition: Stable Disposition: ADMITTED INPATIENT Admitting Provider: Ramesh (Hospitalist) Unit Admitted: IMCU I personally performed the services described in the documentation, reviewed and edited the documentation which was dictated to the scribe in my presence, and it accurately records my words and actions.
[2020-01-06] MEDS ORDERED: NORMAL SALINE 1000 ML 1,000 ML IV ONE (13:27)
[2020-01-06] MEDS ORDERED: IPRATROPIUM/ALBUTEROL 0.5-2.5 MG/3 ML AMPUL NEB PRN (13:40)
[2020-01-06] MEDS ORDERED: PROMETHAZINE HCL INJ 25 MG/1 ML VIAL IV PRN (13:40)
[2020-01-06] MEDS ORDERED: ACETAMINOPHEN 325 MG TABLET PO PRN (13:40)
[2020-01-06] MEDS ORDERED: ONDANSETRON HCL INJ/PF 4 MG/2 ML SDV IV PRN (13:40)
[2020-01-06] MEDS ORDERED: AZITHROMYCIN 250 MG TABLET PO ONE (14:30)
[2020-01-06] MEDS: ASCORBIC ACID 500 MG TABLET PO SCH ×2 (14:34→22:13)
[2020-01-06] MEDS: ASPIRIN 81 MG TABLET, ENT COATED PO SCH (14:34)
[2020-01-06] MEDS: ZINC SULFATE 220 MG CAPSULE PO SCH (14:34)
[2020-01-06] MEDS: DEXAMETHASONE SOD PHOS INJ 10 MG/1 ML VIAL IV SCH (14:35)
[2020-01-06] MEDS: IPRATROPIUM/ALBUTEROL 0.5-2.5 MG/3 ML AMPUL NEB SCH ×2 (14:35→20:55)
[2020-01-06] MEDS ORDERED: DEXTROSE 40% GEL 15 GM TUBE PO PRN ×2 (15:01)
[2020-01-06] MEDS ORDERED: GLUCAGON,HUMAN RECOMB 1 MG INJ IM PRN (15:01)
[2020-01-06] MEDS ORDERED: DEXTROSE 50%-WATER 25 GM/50 ML DISP.SYRIN IV PRN ×2 (15:01)
[2020-01-06 15:31] LABS: A TYPE INFLUENZA AG NEGATIVE (NEGATIVE); B INFLUENZA AG NEGATIVE (NEGATIVE)
[2020-01-06 15:37] LABS: ARTERIAL BLOOD BASE EXCESS 2.3 mmol/L; ARTERIAL BLOOD FIO2 3L; ARTERIAL BLOOD H2CO3 1.18 mmol/L (1.05-1.35); ARTERIAL BLOOD HCO3 26.4 mmol/L (20-24); ARTERIAL BLOOD O2 SATURATION 94.2 % (94-98); ARTERIAL BLOOD PCO2 39.1 mmHg (35-45); ARTERIAL BLOOD PH 7.45 (7.35-7.45); ARTERIAL BLOOD PO2 67.2 mmHg (80-100); ARTERIAL BLOOD TOTAL CO2 27.6 mmol/L (23-27)
[2020-01-06] MEDS: INSULIN LISPRO 100 UNIT/ML 3 ML VIAL SUBCUT SCH ×2 (16:56→21:24)
[2020-01-06] MEDS: NORMAL SALINE 1000 ML 1,000 ML IV PRN (16:56)
[2020-01-06] MEDS ORDERED: PHARMACY COMMUNICATION ORDER MC NR (17:15)
--- NOTE | 2020-01-06 17:30 | PDOC H&P ---
History of Present Illness Admission Date/PCP: 01/06/20 14:38 TREVOR MOY History of Present Illness: JENNIFER CADE JR is a 70 year old male past medical history of diabetes, hypertension, gout, COPD, who presented to ED on 01/03/2020 complaining of shortness of breath, sample for COVID-19 was obtained which came back positive, patient presented to ED today complaining of worsening shortness of breath, nonproductive cough, loss of taste, abdominal pain, and pleuritic chest pain, denies any fever, chills, nausea, vomiting, urinary symptoms. In ED he was found to be leukopenic, with elevated lactic dehydrogenase, and ABG of mild hypoxemia. Chest x-ray showed patchy left basilar interstitial airspace opacities. Hospitalist contacted for admission. Past Medical History Cardiac Medical History: Reports: Hyperlipidema, Hypertension Endocrine Medical History: Reports: Diabetes Mellitus Type 2 Musculoskeltal Medical History: Reports: Arthritis Psychiatric Medical History: Denies: Depression Past Surgical History Past Surgical History: Reports: Orthopedic Surgery - rt ankle Social History Smoking Status: Former Smoker Electronic Cigarette use?: No Last Time Smoked: 03/29/1989 Frequency of Alcohol Use: None Hx Recreational Drug Use: Yes Drugs: Cocaine, Marijuana Hx Prescription Drug Abuse: No Family History Family History: Reviewed & Not Pertinent Parental Family History Reviewed: Yes Children Family History Reviewed: Yes Sibling(s) Family History Reviewed.: Yes Medication/Allergy Home Medications: Allopurinol [Zyloprim 300 mg Tablet] 300 mg PO DAILY 09/03/19 Atorvastatin Calcium [Lipitor 20 mg Tablet] 20 mg PO QHS 09/03/19 Ergocalciferol (Vitamin D2) [Vitamin D2] 50,000 unit PO MO@1000 09/03/19 Lisinopril/Hydrochlorothiazide [Lisinopril-Hctz 20-25 mg Tab] 1 each PO DAILY 09/03/19 Metformin HCl 1,000 mg PO DAILY 09/03/19 Levofloxacin [Levaquin 500 mg Tablet] 500 mg PO DAILY 2 Days #2 tablet 09/06/19 Albuterol Sulfate [Proair HFA Inhalation Aerosol 8.5 gm MDI] 2 puff IH Q4H PRN #1 mdi 01/03/20 Azithromycin [Zithromax 250 mg Tablet] 250 mg PO ASDIR PRN #6 tablet 01/03/20 Dexamethasone [Decadron 4 Mg Tablet] 4 mg PO DAILY #7 tablet 01/03/20 Allergies/Adverse Reactions: No Known Allergies Allergy (Verified 09/02/19 09:54) Physical Exam Vital Signs: Temp Pulse Resp BP Pulse Ox 99.3 F 78 16 132/88 H 98 01/06/20 16:21 01/06/20 17:18 01/06/20 17:18 01/06/20 16:21 01/06/20 17:18 Intake & Output 01/05/20 01/06/20 01/07/20 06:59 06:59 06:59 Intake Total 1000 Balance 1000 Weight 121.109 kg General appearance: PRESENT: no acute distress, obese, well-developed, well-nourished Head exam: PRESENT: atraumatic, normocephalic Respiratory exam: PRESENT: crackles - Left lower lung. ABSENT: rales, rhonchi, wheezes Cardiovascular exam: PRESENT: RRR. ABSENT: diastolic murmur, rubs, systolic murmur GI/Abdominal exam: PRESENT: normal bowel sounds, soft. ABSENT: distended, guard ing, mass, organolmegaly, rebound, tenderness Neurological exam: PRESENT: alert, awake, oriented to person, oriented to place, oriented to time, oriented to situation, CN II-XII grossly intact. ABSENT: motor sensory deficit Results Laboratory Results: 01/06/20 11:30 01/06/20 11:30 01/06/20 01/06/20 01/06/20 11:30 11:30 11:30 WBC 8.7 RBC 4.55 Hgb 14.1 Hct 41.3 MCV 91 MCH 30.9 MCHC 34.0 RDW 14.1 H Plt Count 269 Seg Neutrophils % 84.5 H Carbonic Acid HCO3/H2CO3 Ratio ABG pH ABG pCO2 ABG pO2 ABG HCO3 ABG O2 Saturation ABG Base Excess VBG pH VBG pCO2 VBG HCO3 VBG Base Excess FiO2 Sodium 138.1 Potassium 4.6 Chloride 97 L Carbon Dioxide 28 Anion Gap 13 BUN 41 H Creatinine 1.38 H Est GFR ( Amer) > 60 Glucose 138 H Lactic Acid 1.9 Calcium 9.5 Magnesium 2.1 Ferritin 431.00 Total Bilirubin 0.7 AST 43 Alkaline Phosphatase 66 C-Reactive Protein 61.7 H Total Protein 7.3 Albumin 4.0 01/06/20 01/06/20 11:30 15:10 WBC RBC Hgb Hct MCV MCH MCHC RDW Plt Count Seg Neutrophils % Carbonic Acid 1.18 HCO3/H2CO3 Ratio 22:1 ABG pH 7.45 ABG pCO2 39.1 ABG pO2 67.2 L ABG HCO3 26.4 H ABG O2 Saturation 94.2 ABG Base Excess 2.3 VBG pH 7.44 H VBG pCO2 44.1 VBG HCO3 29.1 VBG Base Excess 4.2 FiO2 3L Sodium Potassium Chloride Carbon Dioxide Anion Gap BUN Creatinine Est GFR ( Amer) Glucose Lactic Acid Calcium Magnesium Ferritin Total Bilirubin AST Alkaline Phosphatase C-Reactive Protein Total Protein Albumin 01/06/20 01/06/20 11:30 11:30 Creatine Kinase 201 H Troponin I < 0.012 Impressions: Chest X-Ray 01/06/20 11:07 IMPRESSION: Patchy left basilar interstitial and airspace opacities. Assessment and Plan - Diagnosis (1) Acute hypoxemic respiratory failure due to COVID-19 Is this a current diagnosis for this admission?: Yes Plan: COVID-19 positive for sample taken on 01/03/2020. ABG positive for mild hypoxemia. Chest x-ray left lower lobe opacity. Admit to IMC, empiric IV antibiotics, therapeutic dose Lovenox, p.o. steroids, incentive spirometry, flutter valve, pulmonary toileting, BiPAP. Have contacted pharmacy for possible initiation of Remesivir. (2) Acute kidney injury superimposed on CKD Is this a current diagnosis for this admission?: Yes Plan: Prerenal. Mostly due to low p.o. intake. Nonoliguric. No uremic symptoms. Monitor volume status and electrolyte replacement. Cautious volume recyclable volume status. Avoid nephrotoxic meds. (3) Hypertension Qualifiers: Hypertension type: essential hypertension Qualified Code(s): I10 - Essential (primary) hypertension Is this a current diagnosis for this admission?: Yes Plan: Normotensive. Resume home meds. Adjust meds as needed outpatient PCP follow-up. (4) Diabetes Qualifiers: Diabetes mellitus type: type 2 Diabetes mellitus penitentiary insulin use: unspecified penitentiary insulin use status Diabetes mellitus complication status: without complication Qualified Code(s): E11.9 - Type 2 diabetes mellitus without complications Is this a current diagnosis for this admission?: Yes Plan: Diabetic diet, sliding scale insulin, basal insulin, prandial insulin, hypoglycemic protocol, Accu-Chek. Resume home meds upon discharge. Outpatient PCP follow-up. - Time Time Spent with patient: 35 or more minutes Medications reviewed and adjusted accordingly: Yes Anticipated Discharge Disposition: Home, Self Care Anticipated Discharge Timeframe: within 72 hours
[2020-01-06] MEDS: ENOXAPARIN SODIUM INJ 120 MG/0.8 ML DISP.SYRIN SUBCUT SCH (18:02)
[2020-01-06 18:48] LABS: APPEARANCE,URINE CLEAR; BILIRUBIN,URINE NEGATIVE (NEGATIVE); COLOR,URINE YELLOW; GLUCOSE, URINE NEGATIVE (NEGATIVE); KETONES,URINE NEGATIVE (NEGATIVE); LEUKOCYTE ESTERASE,URINE NEGATIVE (NEGATIVE); NITRITE,URINE NEGATIVE (NEGATIVE); PROTEIN,URINE 100 mg/dL (NEGATIVE); URINE SPECIFIC GRAVITY 1.016; UROBILINOGEN,URINE NEGATIVE mg/dL (<2.0)
--- NOTE | 2020-01-06 21:56 | EKG REPORT ---
SEVERITY:- OTHERWISE NORMAL ECG - SINUS RHYTHM BORDERLINE LEFT AXIS DEVIATION : Confirmed by: Nury Terrazas MD 06-Jan-2020 21:54:57
[2020-01-06] MEDS: FAMOTIDINE 20 MG TABLET PO SCH (22:13)
[2020-01-07] MEDS: ENOXAPARIN SODIUM INJ 120 MG/0.8 ML DISP.SYRIN SUBCUT SCH ×2 (05:08→18:00)
[2020-01-07] MEDS: NORMAL SALINE 1000 ML 1,000 ML IV PRN (05:09)
[2020-01-07 06:56] LABS: ABSOLUTE LYMPHOCYTES (AUTO) 0.7 10^3/uL (0.5-4.7); ABSOLUTE NEUT (AUTO) 6.3 10^3/uL (1.7-8.2); HEMATOCRIT 38.4 % (37.9-51.0); HEMOGLOBIN 13.3 g/dL (13.5-17.0); LYMPHOCYTES % (AUTO) 8.6 % (13-45); MEAN CORPUSCULAR HEMOGLOBIN 31.3 pg (27.0-33.4); MEAN CORPUSCULAR HGB CONC 34.7 g/dL (32.0-36.0); MEAN CORPUSCULAR VOLUME 90 fl (80-97); MONOCYTES % (AUTO) 12.1 % (3-13); PLATELET COUNT 274 10^3/uL (150-450); RED BLOOD COUNT 4.27 10^6/uL (4.35-5.55); RED CELL DISTRIBUTION WIDTH 13.9 % (11.5-14.0); SEGMENTED NEUTROPHILS % (AUTO) 79.3 % (42-78); TOTAL CELLS COUNTED % (AUTO) 100 %
[2020-01-07 07:15] LABS: D-DIMER 0.33 ug/mL (0.00-0.50)
[2020-01-07 07:32] LABS: ALBUMIN 3.3 g/dL (3.5-5.0); ALKALINE PHOSPHATASE 58 U/L (38-126); ANION GAP 10 (5-19); ASPARTATE AMINO TRANSFERASE 40 U/L (17-59); BILIRUBIN,DIRECT 0.3 mg/dL (0.0-0.4); BILIRUBIN,TOTAL 0.7 mg/dL (0.2-1.3); BLOOD UREA NITROGEN 35 mg/dL (7-20); CALCIUM 8.9 mg/dL (8.4-10.2); CARBON DIOXIDE 27 mmol/L (22-30); CHLORIDE 100 mmol/L (98-107); GLUCOSE 114 mg/dL (75-110); POTASSIUM 4.6 mmol/L (3.6-5.0); TOTAL PROTEIN 6.1 g/dL (6.3-8.2)
[2020-01-07] MEDS: IPRATROPIUM/ALBUTEROL 0.5-2.5 MG/3 ML AMPUL NEB SCH ×3 (07:42→20:38)
[2020-01-07] MEDS: INSULIN LISPRO 100 UNIT/ML 3 ML VIAL SUBCUT SCH ×4 (08:45→21:33)
--- NOTE | 2020-01-07 10:26 | PDOC PROGRESS REPORT ---
Subjective Progress Note for:: 01/07/20 Subjective:: JENNIFER CADE JR is a 70 year old male past medical history of diabetes, hypertension, gout, COPD, who presented to ED on 01/03/2020 complaining of shortness of breath, sample for COVID-19 was obtained which came back positive, patient presented to ED today complaining of worsening shortness of breath, nonproductive cough, loss of taste, abdominal pain, and pleuritic chest pain, denies any fever, chills, nausea, vomiting, urinary symptoms. In ED he was found to be leukopenic, with elevated lactic dehydrogenase, and ABG of mild hypoxemia. Chest x-ray showed patchy left basilar interstitial airspace opacities. Hospitalist contacted for admission. 01/07/2020. No acute events overnight. Patient comfortably sitting up in distress, denies any fever, chills, nausea, vomiting, diarrhea, constipation or any urinary symptoms. Patient is still on supplemental oxygen, saturating low 90s to 3 L nasal cannula. Does not seem to be in any acute distress. Reason For Visit: ACUTE RESPIRATORY FAILURE, COVID19 Physical Exam Vital Signs: Temp Pulse Resp BP Pulse Ox 98.3 F 76 21 H 134/80 H 90 L 01/07/20 08:10 01/07/20 08:10 01/07/20 08:10 01/07/20 08:10 01/07/20 08:10 Intake & Output 01/06/20 01/07/20 01/08/20 06:59 06:59 06:59 Intake Total 2520 Output Total 1050 Balance 1470 Weight 115.5 kg General appearance: PRESENT: obese Head exam: PRESENT: atraumatic, normocephalic Respiratory exam: PRESENT: crackles - Bibasilar. ABSENT: rales, rhonchi, wheezes Cardiovascular exam: PRESENT: RRR. ABSENT: diastolic murmur, rubs, systolic murmur GI/Abdominal exam: PRESENT: normal bowel sounds, soft. ABSENT: distended, guarding, mass, organolmegaly, rebound, tenderness Neurological exam: PRESENT: alert, awake, oriented to person, oriented to place, oriented to time, oriented to situation, CN II-XII grossly intact. ABSENT: motor sensory deficit Results Laboratory Results: 01/07/20 06:00 01/07/20 06:00 01/06/20 01/06/20 01/06/20 11:30 11:30 11:30 WBC 8.7 RBC 4.55 Hgb 14.1 Hct 41.3 MCV 91 MCH 30.9 MCHC 34.0 RDW 14.1 H Plt Count 269 Seg Neutrophils % 84.5 H Carbonic Acid HCO3/H2CO3 Ratio ABG pH ABG pCO2 ABG pO2 ABG HCO3 ABG O2 Saturation ABG Base Excess VBG pH VBG pCO2 VBG HCO3 VBG Base Excess FiO2 Sodium 138.1 Potassium 4.6 Chloride 97 L Carbon Dioxide 28 Anion Gap 13 BUN 41 H Creatinine 1.38 H Est GFR ( Amer) > 60 Glucose 138 H Lactic Acid 1.9 Calcium 9.5 Magnesium 2.1 Ferritin 431.00 Total Bilirubin 0.7 AST 43 Alkaline Phosphatase 66 C-Reactive Protein 61.7 H Total Protein 7.3 Albumin 4.0 Urine Color Urine Appearance Urine pH Ur Specific Joice Urine Protein Urine Glucose (UA) Urine Ketones Urine Blood Urine Nitrite Ur Leukocyte Esterase Urine WBC (Auto) Urine RBC (Auto) 01/06/20 01/06/20 01/06/20 11:30 15:10 18:15 WBC RBC Hgb Hct MCV MCH MCHC RDW Plt Count Seg Neutrophils % Carbonic Acid 1.18 HCO3/H2CO3 Ratio 22:1 ABG pH 7.45 ABG pCO2 39.1 ABG pO2 67.2 L ABG HCO3 26.4 H ABG O2 Saturation 94.2 ABG Base Excess 2.3 VBG pH 7.44 H VBG pCO2 44.1 VBG HCO3 29.1 VBG Base Excess 4.2 FiO2 3L Sodium Potassium Chloride Carbon Dioxide Anion Gap BUN Creatinine Est GFR ( Amer) Glucose Lactic Acid Calcium Magnesium Ferritin Total Bilirubin AST Alkaline Phosphatase C-Reactive Protein Total Protein Albumin Urine Color YELLOW Urine Appearance CLEAR Urine pH 6.0 Ur Specific Joice 1.016 Urine Protein 100 H Urine Glucose (UA) NEGATIVE Urine Ketones NEGATIVE Urine Blood SMALL H Urine Nitrite NEGATIVE Ur Leukocyte Esterase NEGATIVE Urine WBC (Auto) 0 Urine RBC (Auto) 0 01/07/20 01/07/20 06:00 06:00 WBC 8.0 RBC 4.27 L Hgb 13.3 L Hct 38.4 MCV 90 MCH 31.3 MCHC 34.7 RDW 13.9 Plt Count 274 Seg Neutrophils % 79.3 H Carbonic Acid HCO3/H2CO3 Ratio ABG pH ABG pCO2 ABG pO2 ABG HCO3 ABG O2 Saturation ABG Base Excess VBG pH VBG pCO2 VBG HCO3 VBG Base Excess FiO2 Sodium 136.6 L Potassium 4.6 Chloride 100 Carbon Dioxide 27 Anion Gap 10 BUN 35 H Creatinine 1.18 Est GFR ( Amer) > 60 Glucose 114 H Lactic Acid Calcium 8.9 Magnesium Ferritin Total Bilirubin 0.7 AST 40 Alkaline Phosphatase 58 C-Reactive Protein Total Protein 6.1 L Albumin 3.3 L Urine Color Urine Appearance Urine pH Ur Specific Joice Urine Protein Urine Glucose (UA) Urine Ketones Urine Blood Urine Nitrite Ur Leukocyte Esterase Urine WBC (Auto) Urine RBC (Auto) 01/06/20 01/06/20 11:30 11:30 Creatine Kinase 201 H Troponin I < 0.012 Impressions: Chest X-Ray 01/06/20 11:07 IMPRESSION: Patchy left basilar interstitial and airspace opacities. Assessment and Plan - Diagnosis (1) Acute hypoxemic respiratory failure due to COVID-19 Is this a current diagnosis for this admission?: Yes Plan: All improvement. SPO2 WNL on 2 3 L nasal cannula. COVID-19 positive for sample taken on 01/03/2020. ABG on admission positive for mild hypoxemia. Chest x-ray left lower lobe opacity. Day 2 IV antibiotics. Day 2 IV azithromycin. Cultures negative so far. Continue empiric IV antibiotics, therapeutic dose Lovenox, p.o. steroids, incentive spirometry, flutter valve, pulmonary toileting, BiPAP. Have contacted pharmacy for possible initiation of Remesivir. (2) Acute kidney injury superimposed on CKD Is this a current diagnosis for this admission?: Yes Plan: Mild improvement. Prerenal. Mostly due to low p.o. intake. Nonoliguric. No uremic symptoms. Monitor volume status and electrolyte replacement. Cautious volume recyclable volume status. Avoid nephrotoxic meds. (3) Hypertension Qualifiers: Hypertension type: essential hypertension Qualified Code(s): I10 - Essential (primary) hypertension Is this a current diagnosis for this admission?: Yes Plan: Normotensive. Resume home meds. Adjust meds as needed outpatient PCP follow-up. (4) Diabetes Qualifiers: Diabetes mellitus type: type 2 Diabetes mellitus terminal clerk insulin use: unspecified longterm insulin use status Diabetes mellitus complication status: without complication Qualified Code(s): E11.9 - Type 2 diabetes mellitus without complications Is this a current diagnosis for this admission?: Yes Plan: Controlled. Takes metformin at home. Diabetic diet, sliding scale insulin, basal insulin, prandial insulin, hypoglycemic protocol, Accu-Chek. Resume home meds upon discharge. Outpatient PCP follow-up. - Time Time Spent with patient: 25-34 minutes Medications reviewed and adjusted accordingly: Yes Anticipated Discharge Disposition: Home, Self Care Anticipated Discharge Timeframe: within 72 hours
[2020-01-07] MEDS: CHOLECALCIFEROL (D3) 1,000 UNIT (25 MCG) TABLET PO SCH (11:06)
[2020-01-07] MEDS: FAMOTIDINE 20 MG TABLET PO SCH ×2 (11:06→21:03)
[2020-01-07] MEDS: ZINC SULFATE 220 MG CAPSULE PO SCH (11:06)
[2020-01-07] MEDS: ASCORBIC ACID 500 MG TABLET PO SCH ×2 (11:06→21:03)
[2020-01-07] MEDS: AZITHROMYCIN 250 MG TABLET PO SCH (11:06)
[2020-01-07] MEDS: ASPIRIN 81 MG TABLET, ENT COATED PO SCH (11:06)
[2020-01-07] MEDS: DEXAMETHASONE SOD PHOS INJ 10 MG/1 ML VIAL IV SCH (11:07)
[2020-01-08] MEDS: OXYCODONE-ACETAMINOPHEN 5-325 MG TABLET PO PRN (04:18)
[2020-01-08] MEDS: ENOXAPARIN SODIUM INJ 120 MG/0.8 ML DISP.SYRIN SUBCUT SCH ×2 (05:45→18:01)
[2020-01-08 06:43] LABS: HEMATOCRIT 38.9 % (37.9-51.0); HEMOGLOBIN 13.4 g/dL (13.5-17.0); MEAN CORPUSCULAR HEMOGLOBIN 30.8 pg (27.0-33.4); MEAN CORPUSCULAR HGB CONC 34.4 g/dL (32.0-36.0); MEAN CORPUSCULAR VOLUME 90 fl (80-97); PLATELET COUNT 325 10^3/uL (150-450); RED BLOOD COUNT 4.33 10^6/uL (4.35-5.55); RED CELL DISTRIBUTION WIDTH 14.1 % (11.5-14.0)
[2020-01-08 07:04] LABS: ALBUMIN 3.2 g/dL (3.5-5.0); ALKALINE PHOSPHATASE 57 U/L (38-126); ANION GAP 11 (5-19); ASPARTATE AMINO TRANSFERASE 47 U/L (17-59); BILIRUBIN,DIRECT 0.4 mg/dL (0.0-0.4); BILIRUBIN,TOTAL 0.8 mg/dL (0.2-1.3); BLOOD UREA NITROGEN 33 mg/dL (7-20); CARBON DIOXIDE 23 mmol/L (22-30); CHLORIDE 102 mmol/L (98-107); GLUCOSE 106 mg/dL (75-110); POTASSIUM 4.4 mmol/L (3.6-5.0)
[2020-01-08] MEDS: IPRATROPIUM/ALBUTEROL 0.5-2.5 MG/3 ML AMPUL NEB SCH ×3 (07:40→19:02)
[2020-01-08] MEDS: INSULIN LISPRO 100 UNIT/ML 3 ML VIAL SUBCUT SCH ×4 (08:19→22:29)
[2020-01-08 09:20] LABS: APPEARANCE,URINE CLEAR; BILIRUBIN,URINE NEGATIVE (NEGATIVE); COLOR,URINE YELLOW; GLUCOSE, URINE NEGATIVE (NEGATIVE); KETONES,URINE NEGATIVE (NEGATIVE); LEUKOCYTE ESTERASE,URINE NEGATIVE (NEGATIVE); NITRITE,URINE NEGATIVE (NEGATIVE); PROTEIN,URINE 100 mg/dL (NEGATIVE); URINE SPECIFIC GRAVITY 1.021
[2020-01-08] MEDS: ASCORBIC ACID 500 MG TABLET PO SCH ×2 (09:52→22:47)
[2020-01-08] MEDS: FAMOTIDINE 20 MG TABLET PO SCH ×2 (09:52→22:47)
[2020-01-08] MEDS: DEXAMETHASONE SOD PHOS INJ 10 MG/1 ML VIAL IV SCH (09:52)
[2020-01-08] MEDS: CHOLECALCIFEROL (D3) 1,000 UNIT (25 MCG) TABLET PO SCH (09:52)
[2020-01-08] MEDS: AZITHROMYCIN 250 MG TABLET PO SCH (09:52)
[2020-01-08] MEDS: ZINC SULFATE 220 MG CAPSULE PO SCH (09:52)
[2020-01-08] MEDS: ASPIRIN 81 MG TABLET, ENT COATED PO SCH (09:52)
--- NOTE | 2020-01-08 11:20 | PDOC PROGRESS REPORT ---
Subjective Progress Note for:: 01/08/20 Subjective:: JENNIFER CADE JR is a 70 year old male past medical history of diabetes, hypertension, gout, COPD, who presented to ED on 01/03/2020 complaining of shortness of breath, sample for COVID-19 was obtained which came back positive, patient presented to ED today complaining of worsening shortness of breath, nonproductive cough, loss of taste, abdominal pain, and pleuritic chest pain, denies any fever, chills, nausea, vomiting, urinary symptoms. In ED he was found to be leukopenic, with elevated lactic dehydrogenase, and ABG of mild hypoxemia. Chest x-ray showed patchy left basilar interstitial airspace opacities. Hospitalist contacted for admission. 01/07/2020. No acute events overnight. Patient comfortably sitting up in distress, denies any fever, chills, nausea, vomiting, diarrhea, constipation or any urinary symptoms. Patient is still on supplemental oxygen, saturating low 90s to 3 L nasal cannula. Does not seem to be in any acute distress. 01/08/2020. No acute events overnight. Patient comfortably sitting bed no apparent distress, still on supplemental oxygen, SPO2 WNL on 3 L nasal cannula, denies any chest pain, nausea, vomiting, diarrhea, constipation or any urination, complaining of epigastric burning. Reason For Visit: ACUTE RESPIRATORY FAILURE, COVID19 Physical Exam Vital Signs: Temp Pulse Resp BP Pulse Ox 98.4 F 73 15 133/85 H 91 L 01/08/20 07:37 01/08/20 07:40 01/08/20 07:40 01/08/20 07:37 01/08/20 07:40 Intake & Output 01/07/20 01/08/20 01/09/20 06:59 06:59 06:59 Intake Total 2520 1743 Output Total 1050 1400 Balance 1470 343 Weight 115.5 kg 119.8 kg General appearance: PRESENT: no acute distress, well-developed, well-nourished Head exam: PRESENT: atraumatic, normocephalic Neck exam: ABSENT: carotid bruit, JVD, lymphadenopathy, thyromegaly Respiratory exam: PRESENT: clear to auscultation vernon. ABSENT: rales, rhonchi, wheezes Cardiovascular exam: PRESENT: RRR. ABSENT: diastolic murmur, rubs, systolic murmur GI/Abdominal exam: PRESENT: normal bowel sounds, soft. ABSENT: distended, guarding, mass, organolmegaly, rebound, tenderness Neurological exam: PRESENT: alert, awake, oriented to person, oriented to place, oriented to time, oriented to situation, CN II-XII grossly intact. ABSENT: motor sensory deficit Results Laboratory Results: 01/08/20 05:50 01/08/20 05:50 01/08/20 01/08/20 01/08/20 05:50 05:50 08:35 WBC 9.0 RBC 4.33 L Hgb 13.4 L Hct 38.9 MCV 90 MCH 30.8 MCHC 34.4 RDW 14.1 H Plt Count 325 Sodium 135.9 L Potassium 4.4 Chloride 102 Carbon Dioxide 23 Anion Gap 11 BUN 33 H Creatinine 1.16 Est GFR ( Amer) > 60 Glucose 106 Calcium 9.0 Total Bilirubin 0.8 AST 47 Alkaline Phosphatase 57 Total Protein 6.0 L Albumin 3.2 L Urine Color YELLOW Urine Appearance CLEAR Urine pH 6.0 Ur Specific [place] 1.021 Urine Protein 100 H Urine Glucose (UA) NEGATIVE Urine Ketones NEGATIVE Urine Blood NEGATIVE Urine Nitrite NEGATIVE Ur Leukocyte Esterase NEGATIVE Urine WBC (Auto) 0 Urine RBC (Auto) 0 01/06/20 01/06/20 11:30 11:30 Creatine Kinase 201 H Troponin I < 0.012 Impressions: Chest X-Ray 01/06/20 11:07 IMPRESSION: Patchy left basilar interstitial and airspace opacities. Assessment and Plan - Diagnosis (1) Acute hypoxemic respiratory failure due to COVID-19 Is this a current diagnosis for this admission?: Yes Plan: All improvement. SPO2 WNL on 2 3 L nasal cannula. COVID-19 positive for sample taken on 01/03/2020. ABG on admission positive for mild hypoxemia. Chest x-ray left lower lobe opacity. Day 3 IV antibiotics. Day 3 IV azithromycin. Cultures negative so far. Continue empiric IV antibiotics, therapeutic dose Lovenox, p.o. steroids, incentive spirometry, flutter valve, pulmonary toileting, BiPAP. Have contacted pharmacy for possible initiation of Remesivir. Asked patient if he would like effervescent plasma transfusion he stated that he would like to hold and see if he gets better without it. (2) Acute kidney injury superimposed on CKD Is this a current diagnosis for this admission?: Yes Plan: Resolved. Prerenal. Mostly due to low p.o. intake. Home meds is ibuprofen which may contribute to CKD. Nonoliguric. No uremic symptoms. Monitor volume status and electrolyte replacement. Cautious volume recyclable volume status. Avoid nephrotoxic meds. (3) Hypertension Qualifiers: Hypertension type: essential hypertension Qualified Code(s): I10 - Essential (primary) hypertension Is this a current diagnosis for this admission?: Yes Plan: Normotensive. Euvolemic. Resume home meds. Adjust meds as needed outpatient PCP follow-up. (4) Diabetes Qualifiers: Diabetes mellitus type: type 2 Diabetes mellitus predatory animal exterminator insulin use: unspecified chcf insulin use status Diabetes mellitus complication status: without complication Qualified Code(s): E11.9 - Type 2 diabetes mellitus without complications Is this a current diagnosis for this admission?: Yes Plan: Controlled. Takes metformin at home. Diabetic diet, sliding scale insulin, basal insulin, prandial insulin, hypoglycemic protocol, Accu-Chek. Resume home meds upon discharge. Outpatient PCP follow-up. - Time Time Spent with patient: 25-34 minutes Medications reviewed and adjusted accordingly: Yes Anticipated Discharge Disposition: Home, Self Care Anticipated Discharge Timeframe: within 48 hours
[2020-01-08] MEDS: ALLOPURINOL 300 MG TABLET PO SCH (12:11)
[2020-01-08] MEDS ORDERED: REMDESIVIR (EUA) 200 MG in NORMAL SALINE 250 ML IV ONE (14:00)
[2020-01-08] MEDS: ATORVASTATIN CALCIUM 20 MG TABLET PO SCH (22:47)
[2020-01-09] MEDS: OXYCODONE-ACETAMINOPHEN 5-325 MG TABLET PO PRN ×2 (03:49→09:58)
[2020-01-09] MEDS: ENOXAPARIN SODIUM INJ 120 MG/0.8 ML DISP.SYRIN SUBCUT SCH ×2 (05:31→17:12)
[2020-01-09 05:43] LABS: ABSOLUTE MONOCYTES (AUTO) 0.9 10^3/uL (0.1-1.4); ABSOLUTE NEUT (AUTO) 6.8 10^3/uL (1.7-8.2); BASOPHILS % (AUTO) 0.3 % (0-2); HEMATOCRIT 38.8 % (37.9-51.0); HEMOGLOBIN 13.4 g/dL (13.5-17.0); LYMPHOCYTES % (AUTO) 11.5 % (13-45); MEAN CORPUSCULAR HEMOGLOBIN 30.9 pg (27.0-33.4); MEAN CORPUSCULAR HGB CONC 34.6 g/dL (32.0-36.0); MEAN CORPUSCULAR VOLUME 89 fl (80-97); MONOCYTES % (AUTO) 10.4 % (3-13); PLATELET COUNT 381 10^3/uL (150-450); RED BLOOD COUNT 4.34 10^6/uL (4.35-5.55); RED CELL DISTRIBUTION WIDTH 13.6 % (11.5-14.0); SEGMENTED NEUTROPHILS % (AUTO) 77.8 % (42-78); TOTAL CELLS COUNTED % (AUTO) 100 %; WHITE BLOOD COUNT 8.7 10^3/uL (4.0-10.5)
[2020-01-09 05:57] LABS: ALBUMIN 3.2 g/dL (3.5-5.0); ALKALINE PHOSPHATASE 57 U/L (38-126); ANION GAP 10 (5-19); ASPARTATE AMINO TRANSFERASE 55 U/L (17-59); BILIRUBIN,DIRECT 0.4 mg/dL (0.0-0.4); BILIRUBIN,TOTAL 0.6 mg/dL (0.2-1.3); BLOOD UREA NITROGEN 30 mg/dL (7-20); CALCIUM 9.2 mg/dL (8.4-10.2); CARBON DIOXIDE 22 mmol/L (22-30); CHLORIDE 105 mmol/L (98-107); GLUCOSE 100 mg/dL (75-110); POTASSIUM 4.6 mmol/L (3.6-5.0); TOTAL PROTEIN 6.2 g/dL (6.3-8.2)
[2020-01-09 06:02] LABS: D-DIMER 0.37 ug/mL (0.00-0.50)
[2020-01-09] MEDS ORDERED: FUROSEMIDE INJ/PF 20 MG/2 ML SDV ONE (08:18)
[2020-01-09] MEDS: IPRATROPIUM/ALBUTEROL 0.5-2.5 MG/3 ML AMPUL NEB SCH ×3 (08:22→20:16)
[2020-01-09] MEDS ORDERED: FUROSEMIDE INJ/PF 20 MG/2 ML SDV IV ONE (08:30)
[2020-01-09] MEDS: INSULIN LISPRO 100 UNIT/ML 3 ML VIAL SUBCUT SCH ×4 (08:48→22:56)
[2020-01-09 10:20] LABS: ARTERIAL BLOOD BASE EXCESS 3.3 mmol/L; ARTERIAL BLOOD H2CO3 1.06 mmol/L (1.05-1.35); ARTERIAL BLOOD HCO3 26.3 mmol/L (20-24); ARTERIAL BLOOD O2 SATURATION 83.2 % (94-98); ARTERIAL BLOOD PCO2 35.3 mmHg (35-45); ARTERIAL BLOOD PH 7.49 (7.35-7.45); ARTERIAL BLOOD PO2 43.2 mmHg (80-100); ARTERIAL BLOOD TOTAL CO2 27.4 mmol/L (23-27)
[2020-01-09 10:23] LABS: ARTERIAL BLOOD FIO2 15L
[2020-01-09] MEDS: ALLOPURINOL 300 MG TABLET PO SCH (10:42)
[2020-01-09] MEDS: REMDESIVIR (EUA) 100 MG in NORMAL SALINE 250 ML IV SCH (10:42)
[2020-01-09] MEDS: FAMOTIDINE 20 MG TABLET PO SCH ×2 (10:42→22:39)
[2020-01-09] MEDS: ASCORBIC ACID 500 MG TABLET PO SCH ×2 (10:42→22:39)
[2020-01-09] MEDS: ZINC SULFATE 220 MG CAPSULE PO SCH (10:42)
[2020-01-09] MEDS: ASPIRIN 81 MG TABLET, ENT COATED PO SCH (10:42)
[2020-01-09] MEDS: AZITHROMYCIN 250 MG TABLET PO SCH (10:42)
[2020-01-09] MEDS: DEXAMETHASONE SOD PHOS INJ 10 MG/1 ML VIAL IV SCH (10:43)
[2020-01-09] MEDS: CHOLECALCIFEROL (D3) 1,000 UNIT (25 MCG) TABLET PO SCH (10:56)
[2020-01-09] MEDS: CEFTRIAXONE 1 GM/D5W RTU 1 GM/50 ML RTUPB IV SCH (11:35)
--- NOTE | 2020-01-09 13:11 | PDOC PROGRESS REPORT ---
Subjective Progress Note for:: 01/09/20 Subjective:: JENNIFER CADE JR is a 70 year old male past medical history of diabetes, hypertension, gout, COPD, who presented to ED on 01/03/2020 complaining of shortness of breath, sample for COVID-19 was obtained which came back positive, patient presented to ED today complaining of worsening shortness of breath, nonproductive cough, loss of taste, abdominal pain, and pleuritic chest pain, denies any fever, chills, nausea, vomiting, urinary symptoms. In ED he was found to be leukopenic, with elevated lactic dehydrogenase, and ABG of mild hypoxemia. Chest x-ray showed patchy left basilar interstitial airspace opacities. Hospitalist contacted for admission. 01/07/2020. No acute events overnight. Patient comfortably sitting up in distress, denies any fever, chills, nausea, vomiting, diarrhea, constipation or any urinary symptoms. Patient is still on supplemental oxygen, saturating low 90s to 3 L nasal cannula. Does not seem to be in any acute distress. 01/08/2020. No acute events overnight. Patient comfortably sitting bed no apparent distress, still on supplemental oxygen, SPO2 WNL on 3 L nasal cannula, denies any chest pain, nausea, vomiting, diarrhea, constipation or any urination, complaining of epigastric burning. 01/09/2020. Unfortunately patient oxygen demand is going up noted to be hypoxic, overnight he was placed on Oxymizer, this morning a repeat ABG shows worsening hypoxemia, patient complaining of shortness of breath, denies any fever, chills, nausea, vomiting, diarrhea, constipation or any urinary symptoms. Patient has consented to receive effervescent plasma. Reason For Visit: ACUTE RESPIRATORY FAILURE, COVID19 Physical Exam Vital Signs: Temp Pulse Resp BP Pulse Ox 98.1 F 90 22 H 144/89 H 93 01/09/20 08:31 01/09/20 08:39 01/09/20 10:35 01/09/20 07:45 01/09/20 10:35 Intake & Output 01/08/20 01/09/20 01/10/20 06:59 06:59 06:59 Intake Total 1743 480 300 Output Total 1400 950 Balance 343 -470 300 Weight 119.8 kg 119.3 kg General appearance: PRESENT: mild distress, well-developed, well-nourished Head exam: PRESENT: atraumatic, normocephalic Neck exam: ABSENT: carotid bruit, JVD, lymphadenopathy, thyromegaly Respiratory exam: PRESENT: accessory muscle use, crackles, tachypnea. ABSENT: rales, rhonchi, wheezes Cardiovascular exam: PRESENT: RRR. ABSENT: diastolic murmur, rubs, systolic murmur GI/Abdominal exam: PRESENT: normal bowel sounds, soft. ABSENT: distended, guarding, mass, organolmegaly, rebound, tenderness Neurological exam: PRESENT: alert, awake, oriented to person, oriented to place, oriented to time, oriented to situation, CN II-XII grossly intact. ABSENT: motor sensory deficit Results Laboratory Results: 01/09/20 04:47 01/09/20 04:47 01/09/20 01/09/20 01/09/20 04:47 04:47 09:55 WBC 8.7 RBC 4.34 L Hgb 13.4 L Hct 38.8 MCV 89 MCH 30.9 MCHC 34.6 RDW 13.6 Plt Count 381 Seg Neutrophils % 77.8 Carbonic Acid 1.06 HCO3/H2CO3 Ratio 24:1 ABG pH 7.49 H ABG pCO2 35.3 ABG pO2 43.2 L ABG HCO3 26.3 H ABG O2 Saturation 83.2 L ABG Base Excess 3.3 FiO2 15L Sodium 137.1 Potassium 4.6 Chloride 105 Carbon Dioxide 22 Anion Gap 10 BUN 30 H Creatinine 1.18 Est GFR ( Amer) > 60 Glucose 100 Calcium 9.2 Total Bilirubin 0.6 AST 55 Alkaline Phosphatase 57 Total Protein 6.2 L Albumin 3.2 L 01/06/20 01/06/20 11:30 11:30 Creatine Kinase 201 H Troponin I < 0.012 Impressions: Chest X-Ray 01/06/20 11:07 IMPRESSION: Patchy left basilar interstitial and airspace opacities. Assessment and Plan - Diagnosis (1) Acute hypoxemic respiratory failure due to COVID-19 Is this a current diagnosis for this admission?: Yes Plan: Worsening hypoxemia. ABG this morning shows a PO2 of 43. On Oxymizer at 15 L/min. COVID-19 positive for sample taken on 01/03/2020. ABG on admission positive for mild hypoxemia. Chest x-ray left lower lobe opacity. Day 4 IV antibiotics. Day 4 IV azithromycin. Day 1 IV ceftriaxone. Day 1 IV remdesivir. Scheduled to receive effervescent plasma 01/09/2020. Cultures negative so far. Continue empiric IV antibiotics, therapeutic dose Lovenox, p.o. steroids, incentive spirometry, flutter valve, pulmonary toileting, BiPAP. (2) Acute kidney injury superimposed on CKD Is this a current diagnosis for this admission?: Yes Plan: Resolved. Prerenal. Mostly due to low p.o. intake. Home meds is ibuprofen which may contribute to CKD. Nonoliguric. No uremic symptoms. Monitor volume status and electrolyte replacement. DC IV fluids. Avoid nephrotoxic meds. (3) Hypertension Qualifiers: Hypertension type: essential hypertension Qualified Code(s): I10 - Essential (primary) hypertension Is this a current diagnosis for this admission?: Yes Plan: Normotensive. Euvolemic. Resume home meds. Adjust meds as needed outpatient PCP follow-up. (4) Diabetes Qualifiers: Diabetes mellitus type: type 2 Diabetes mellitus bed bug exterminator insulin use: unspecified bed bug exterminator insulin use status Diabetes mellitus complication status: without complication Qualified Code(s): E11.9 - Type 2 diabetes mellitus without complications Is this a current diagnosis for this admission?: Yes Plan: Controlled. Takes metformin at home. Diabetic diet, sliding scale insulin, basal insulin, prandial insulin, hypoglycemic protocol, Accu-Chek. Resume home meds upon discharge. Outpatient PCP follow-up. - Time Time Spent with patient: 25-34 minutes Medications reviewed and adjusted accordingly: Yes Anticipated Discharge Disposition: Home with Home Health Anticipated Discharge Timeframe: within 48 hours
[2020-01-09] MEDS: ATORVASTATIN CALCIUM 20 MG TABLET PO SCH (22:39)
[2020-01-10] MEDS: ENOXAPARIN SODIUM INJ 120 MG/0.8 ML DISP.SYRIN SUBCUT SCH ×2 (05:11→17:26)
[2020-01-10 05:42] LABS: ALBUMIN 3.3 g/dL (3.5-5.0); ALKALINE PHOSPHATASE 62 U/L (38-126); ANION GAP 10 (5-19); ASPARTATE AMINO TRANSFERASE 46 U/L (17-59); BILIRUBIN,DIRECT 0.4 mg/dL (0.0-0.4); BILIRUBIN,TOTAL 0.8 mg/dL (0.2-1.3); BLOOD UREA NITROGEN 32 mg/dL (7-20); CALCIUM 9.6 mg/dL (8.4-10.2); CARBON DIOXIDE 29 mmol/L (22-30); CHLORIDE 99 mmol/L (98-107); GLUCOSE 98 mg/dL (75-110); TOTAL PROTEIN 6.2 g/dL (6.3-8.2)
[2020-01-10 05:50] LABS: HEMATOCRIT 41.3 % (37.9-51.0); HEMOGLOBIN 14.5 g/dL (13.5-17.0); MEAN CORPUSCULAR HEMOGLOBIN 31.6 pg (27.0-33.4); MEAN CORPUSCULAR HGB CONC 35.2 g/dL (32.0-36.0); MEAN CORPUSCULAR VOLUME 90 fl (80-97); PLATELET COUNT 420 10^3/uL (150-450); RED BLOOD COUNT 4.61 10^6/uL (4.35-5.55); RED CELL DISTRIBUTION WIDTH 13.9 % (11.5-14.0); WHITE BLOOD COUNT 10.3 10^3/uL (4.0-10.5)
[2020-01-10] MEDS: IPRATROPIUM/ALBUTEROL 0.5-2.5 MG/3 ML AMPUL NEB SCH ×3 (07:45→19:54)
[2020-01-10] MEDS: OXYCODONE-ACETAMINOPHEN 5-325 MG TABLET PO PRN ×2 (08:14→20:29)
[2020-01-10] MEDS: INSULIN LISPRO 100 UNIT/ML 3 ML VIAL SUBCUT SCH ×4 (08:21→23:45)
[2020-01-10 09:03] LABS: APPEARANCE,URINE CLEAR; BILIRUBIN,URINE NEGATIVE (NEGATIVE); COLOR,URINE YELLOW; GLUCOSE, URINE NEGATIVE (NEGATIVE); KETONES,URINE NEGATIVE (NEGATIVE); LEUKOCYTE ESTERASE,URINE NEGATIVE (NEGATIVE); NITRITE,URINE NEGATIVE (NEGATIVE); PROTEIN,URINE 30 mg/dL (NEGATIVE); URINE SPECIFIC GRAVITY 1.023
[2020-01-10] MEDS: ALLOPURINOL 300 MG TABLET PO SCH (10:34)
[2020-01-10] MEDS: FAMOTIDINE 20 MG TABLET PO SCH ×2 (10:34→23:00)
[2020-01-10] MEDS: AZITHROMYCIN 250 MG TABLET PO SCH (10:35)
[2020-01-10] MEDS: ASCORBIC ACID 500 MG TABLET PO SCH ×2 (10:35→23:00)
[2020-01-10] MEDS: ASPIRIN 81 MG TABLET, ENT COATED PO SCH (10:35)
[2020-01-10] MEDS: ZINC SULFATE 220 MG CAPSULE PO SCH (10:35)
[2020-01-10] MEDS: DEXAMETHASONE SOD PHOS INJ 10 MG/1 ML VIAL IV SCH (10:35)
[2020-01-10] MEDS: CEFTRIAXONE 1 GM/D5W RTU 1 GM/50 ML RTUPB IV SCH (10:35)
[2020-01-10] MEDS: CHOLECALCIFEROL (D3) 1,000 UNIT (25 MCG) TABLET PO SCH (10:35)
[2020-01-10] MEDS: REMDESIVIR (EUA) 100 MG in NORMAL SALINE 250 ML IV SCH (10:41)
--- NOTE | 2020-01-10 16:03 | PDOC PROGRESS REPORT ---
Subjective Progress Note for:: 01/10/20 Subjective:: No adverse events overnight. He is currently on the heated high flow nasal cannula. He is requiring a lot of oxygen relatively, but even though he looks fatigued he looks fairly comfortable. He is able to converse and provide me details of his medical history. He is not eating very much but he is able to rest. Reason For Visit: ACUTE RESPIRATORY FAILURE, COVID19 Physical Exam Vital Signs: Temp Pulse Resp BP Pulse Ox 98.5 F 97 18 136/82 H 94 01/10/20 11:38 01/10/20 14:05 01/10/20 14:05 01/10/20 11:38 01/10/20 14:05 Intake & Output 01/09/20 01/10/20 01/11/20 06:59 06:59 06:59 Intake Total 480 916 250 Output Total 950 1375 Balance -470 -459 250 Weight 119.3 kg 112.6 kg General appearance: PRESENT: mild distress, well-developed, well-nourished Head exam: PRESENT: atraumatic, normocephalic Neck exam: ABSENT: carotid bruit, JVD, lymphadenopathy, thyromegaly Respiratory exam: PRESENT: crackles ABSENT: rales, rhonchi, wheezes, accessory muscle use, tachypnea. Cardiovascular exam: PRESENT: RRR. ABSENT: diastolic murmur, rubs, systolic murmur GI/Abdominal exam: PRESENT: normal bowel sounds, soft. ABSENT: distended, guarding, mass, organolmegaly, rebound, tenderness Neurological exam: PRESENT: alert, awake, oriented to person, oriented to place, oriented to time, oriented to situation, CN II-XII grossly intact. ABSENT: motor sensory deficit Results Laboratory Results: 01/10/20 04:26 01/10/20 04:26 01/09/20 01/10/20 01/10/20 12:33 04:26 04:26 WBC 10.3 RBC 4.61 Hgb 14.5 Hct 41.3 MCV 90 MCH 31.6 MCHC 35.2 RDW 13.9 Plt Count 420 Sodium 138.3 Potassium 5.0 Chloride 99 Carbon Dioxide 29 Anion Gap 10 BUN 32 H Creatinine 1.16 Est GFR ( Amer) > 60 Glucose 98 Calcium 9.6 Total Bilirubin 0.8 AST 46 Alkaline Phosphatase 62 Total Protein 6.2 L Albumin 3.3 L Urine Color Urine Appearance Urine pH Ur Specific [place] Urine Protein Urine Glucose (UA) Urine Ketones Urine Blood Urine Nitrite Ur Leukocyte Esterase Urine WBC (Auto) Urine RBC (Auto) Blood Type O POSITIVE 01/10/20 08:18 WBC RBC Hgb Hct MCV MCH MCHC RDW Plt Count Sodium Potassium Chloride Carbon Dioxide Anion Gap BUN Creatinine Est GFR ( Amer) Glucose Calcium Total Bilirubin AST Alkaline Phosphatase Total Protein Albumin Urine Color YELLOW Urine Appearance CLEAR Urine pH 6.0 Ur Specific [place] 1.023 Urine Protein 30 H Urine Glucose (UA) NEGATIVE Urine Ketones NEGATIVE Urine Blood NEGATIVE Urine Nitrite NEGATIVE Ur Leukocyte Esterase NEGATIVE Urine WBC (Auto) 1 Urine RBC (Auto) 0 Blood Type 01/06/20 01/06/20 11:30 11:30 Creatine Kinase 201 H Troponin I < 0.012 Impressions: Chest X-Ray 01/06/20 11:07 IMPRESSION: Patchy left basilar interstitial and airspace opacities. Assessment and Plan - Diagnosis (1) Acute hypoxemic respiratory failure due to COVID-19 Is this a current diagnosis for this admission?: Yes (2) Acute kidney injury superimposed on CKD Is this a current diagnosis for this admission?: Yes (3) Dehydration Is this a current diagnosis for this admission?: Yes (4) Diabetes Qualifiers: Diabetes mellitus type: type 2 Diabetes mellitus chcf insulin use: unspecified chcf insulin use status Diabetes mellitus complication status: without complication Qualified Code(s): E11.9 - Type 2 diabetes mellitus without complications Is this a current diagnosis for this admission?: Yes (5) Hypertension Qualifiers: Hypertension type: essential hypertension Qualified Code(s): I10 - Essential (primary) hypertension Is this a current diagnosis for this admission?: Yes (6) Pneumonia Qualifiers: Pneumonia type: due to unspecified organism Laterality: bilateral Lung location: unspecified part of lung Qualified Code(s): J18.9 - Pneumonia, unspecified organism Is this a current diagnosis for this admission?: Yes (7) Sepsis Qualifiers: Sepsis type: sepsis due to unspecified organism Severe sepsis acute organ dysfunction type: acute renal failure Severe sepsis shock status: without septic shock Is this a current diagnosis for this admission?: Yes - Plan Summary Summary: Currently stable on high flow nasal cannula. Continue Decadron and remdesivir. Also on concomittent antibiotics for potential superimposed bacterial infection. We will continue active treatment and supportive measures. - Time Time Spent with patient: 15-24 minutes Anticipated Discharge Disposition: Pending clinical course Anticipated Discharge Timeframe: Pending clinical course
[2020-01-10] MEDS ORDERED: METOPROLOL TARTRATE PF/INJ 5 MG/5 ML SDV IV ONE ×2 (20:40→21:30)
[2020-01-10] MEDS ORDERED: METOPROLOL TARTRATE 25 MG TABLET ONE (20:41)
[2020-01-10] MEDS ORDERED: METOPROLOL TARTRATE 25 MG TABLET PO ONE (21:30)
--- NOTE | 2020-01-10 22:08 | EKG REPORT ---
SEVERITY:- ABNORMAL ECG - SINUS TACHYCARDIA WITH SHORT PAT RUN LVH BY VOLTAGE PROBABLE INFERIOR INFARCT, AGE INDETERMINATE : Confirmed by: Lety Wiggins 10-Jan-2020 22:07:43
[2020-01-10] MEDS: ATORVASTATIN CALCIUM 20 MG TABLET PO SCH (23:00)
[2020-01-11] MEDS: IPRATROPIUM BROMIDE 0.02% NEB 0.5 MG/2.5 ML AMPUL NEB SCH ×3 (00:20→16:32)
[2020-01-11] MEDS: LEVALBUTEROL HCL NEB 1.25 MG/3 ML AMPUL NEB SCH ×3 (00:20→16:32)
[2020-01-11 05:43] LABS: HEMATOCRIT 40.9 % (37.9-51.0); MEAN CORPUSCULAR HEMOGLOBIN 30.9 pg (27.0-33.4); MEAN CORPUSCULAR HGB CONC 34.2 g/dL (32.0-36.0); MEAN CORPUSCULAR VOLUME 90 fl (80-97); PLATELET COUNT 436 10^3/uL (150-450); RED BLOOD COUNT 4.52 10^6/uL (4.35-5.55); WHITE BLOOD COUNT 9.8 10^3/uL (4.0-10.5)
[2020-01-11 05:46] LABS: D-DIMER 0.49 ug/mL (0.00-0.50)
[2020-01-11 05:50] LABS: ALBUMIN 3.3 g/dL (3.5-5.0); ALKALINE PHOSPHATASE 64 U/L (38-126); ANION GAP 8 (5-19); ASPARTATE AMINO TRANSFERASE 48 U/L (17-59); BILIRUBIN,DIRECT 0.3 mg/dL (0.0-0.4); BILIRUBIN,TOTAL 0.6 mg/dL (0.2-1.3); BLOOD UREA NITROGEN 32 mg/dL (7-20); CALCIUM 9.7 mg/dL (8.4-10.2); CARBON DIOXIDE 27 mmol/L (22-30); CHLORIDE 103 mmol/L (98-107); GLUCOSE 101 mg/dL (75-110); POTASSIUM 4.5 mmol/L (3.6-5.0)
[2020-01-11 06:20] LABS: ABSOLUTE LYMPHOCYTES# (MANUAL) 1.7 10^3/uL (0.5-4.7); ABSOLUTE MONOCYTES # (MANUAL) 0.6 10^3/uL (0.1-1.4); BAND NEUTROPHILS % (MANUAL) 2 % (3-5); BASOPHILS % (MANUAL) 0 % (0-2); EOSINOPHILS % (MANUAL) 2 % (0-6); LYMPHOCYTES % (MANUAL) 17 % (13-45); MONOCYTES % (MANUAL) 6 % (3-13); PLATELET CLUMPS PRESENT; PLATELET COMMENT ADEQUATE; RBC MORPHOLOGY COMMENT NORMO-CYTIC/CHROMIC; SEGMENTED NEUTROPHILS % (MAN) 73 % (42-78); TOTAL CELLS COUNTED 100
[2020-01-11] MEDS: METOPROLOL TARTRATE 25 MG TABLET PO SCH ×3 (06:42→22:15)
[2020-01-11] MEDS: ENOXAPARIN SODIUM INJ 120 MG/0.8 ML DISP.SYRIN SUBCUT SCH ×2 (06:43→17:52)
[2020-01-11] MEDS: INSULIN LISPRO 100 UNIT/ML 3 ML VIAL SUBCUT SCH ×4 (08:56→22:16)
[2020-01-11] MEDS: ALLOPURINOL 300 MG TABLET PO SCH (10:13)
[2020-01-11] MEDS: CHOLECALCIFEROL (D3) 1,000 UNIT (25 MCG) TABLET PO SCH (10:13)
[2020-01-11] MEDS: ASPIRIN 81 MG TABLET, ENT COATED PO SCH (10:13)
[2020-01-11] MEDS: ZINC SULFATE 220 MG CAPSULE PO SCH (10:14)
[2020-01-11] MEDS: FAMOTIDINE 20 MG TABLET PO SCH ×2 (10:14→22:15)
[2020-01-11] MEDS: DEXAMETHASONE SOD PHOS INJ 10 MG/1 ML VIAL IV SCH (10:14)
[2020-01-11] MEDS: AZITHROMYCIN 250 MG TABLET PO SCH (10:14)
[2020-01-11] MEDS: ASCORBIC ACID 500 MG TABLET PO SCH ×2 (10:14→22:15)
[2020-01-11] MEDS: REMDESIVIR (EUA) 100 MG in NORMAL SALINE 250 ML IV SCH (10:16)
[2020-01-11] MEDS: CEFTRIAXONE 1 GM/D5W RTU 1 GM/50 ML RTUPB IV SCH (10:17)
--- NOTE | 2020-01-11 15:31 | PDOC PROGRESS REPORT ---
Subjective Progress Note for:: 01/11/20 Subjective:: Patient remains on the heated high flow nasal cannula. His FiO2 has been up around 80% today. He has sometimes at rest when his SPO2 drops into the mid 80s but he seems to recover to the low 90s. He never appears to be in any worsened distress during these times. He looks fatigued but he does not complain of being too short of breath at rest. Reason For Visit: ACUTE RESPIRATORY FAILURE, COVID19 Physical Exam Vital Signs: Temp Pulse Resp BP Pulse Ox 99.0 F 94 22 H 154/79 H 78 L 01/11/20 11:10 01/11/20 11:10 01/11/20 11:10 01/11/20 11:10 01/11/20 11:10 Intake & Output 01/10/20 01/11/20 01/12/20 06:59 06:59 06:59 Intake Total 916 537 800 Output Total 1375 895 200 Balance -459 -358 600 Weight 112.6 kg 114.1 kg General appearance: PRESENT: mild distress, well-developed, well-nourished Head exam: PRESENT: atraumatic, normocephalic Neck exam: ABSENT: carotid bruit, JVD, lymphadenopathy, thyromegaly Respiratory exam: PRESENT: crackles ABSENT: rales, rhonchi, wheezes, accessory muscle use, tachypnea. Cardiovascular exam: PRESENT: RRR. ABSENT: diastolic murmur, rubs, systolic murmur GI/Abdominal exam: PRESENT: normal bowel sounds, soft. ABSENT: distended, guarding, mass, organolmegaly, rebound, tenderness Neurological exam: PRESENT: alert, awake, oriented to person, oriented to place, oriented to time, oriented to situation, CN II-XII grossly intact. ABSENT: motor sensory deficit Results Laboratory Results: 01/11/20 04:43 01/11/20 04:43 01/11/20 01/11/20 04:43 04:43 WBC 9.8 RBC 4.52 Hgb 14.0 Hct 40.9 MCV 90 MCH 30.9 MCHC 34.2 RDW 14.0 Plt Count 436 Seg Neutrophils % Not Reportable Sodium 137.5 Potassium 4.5 Chloride 103 Carbon Dioxide 27 Anion Gap 8 BUN 32 H Creatinine 1.13 Est GFR ( Amer) > 60 Glucose 101 Calcium 9.7 Total Bilirubin 0.6 AST 48 Alkaline Phosphatase 64 Total Protein 7.0 Albumin 3.3 L 01/06/20 01/06/20 11:30 11:30 Creatine Kinase 201 H Troponin I < 0.012 Impressions: Chest X-Ray 01/06/20 11:07 IMPRESSION: Patchy left basilar interstitial and airspace opacities. Assessment and Plan - Diagnosis (1) Acute hypoxemic respiratory failure due to COVID-19 Is this a current diagnosis for this admission?: Yes (2) Acute kidney injury superimposed on CKD Is this a current diagnosis for this admission?: Yes (3) Dehydration Is this a current diagnosis for this admission?: Yes (4) Diabetes Qualifiers: Diabetes mellitus type: type 2 Diabetes mellitus long-term insulin use: unspecified emt intermediate insulin use status Diabetes mellitus complication status: without complication Qualified Code(s): E11.9 - Type 2 diabetes mellitus without complications Is this a current diagnosis for this admission?: Yes (5) Hypertension Qualifiers: Hypertension type: essential hypertension Qualified Code(s): I10 - Essential (primary) hypertension Is this a current diagnosis for this admission?: Yes (6) Pneumonia Qualifiers: Pneumonia type: due to unspecified organism Laterality: bilateral Lung location: unspecified part of lung Qualified Code(s): J18.9 - Pneumonia, unspecified organism Is this a current diagnosis for this admission?: Yes (7) Sepsis Qualifiers: Sepsis type: sepsis due to unspecified organism Severe sepsis acute organ dysfunction type: acute renal failure Severe sepsis shock status: without septic shock Is this a current diagnosis for this admission?: Yes - Plan Summary Summary: Continue Decadron and remdesivir. Also on concomittent antibiotics for potential superimposed bacterial infection. Remains on heated high flow nasal cannula with a high FiO2. He is intermittently hypoxic but does not appear to be any worsened distress, so we will continue to try to use high flow nasal cannula as opposed to aerosol-generating procedures like BiPAP. - Time Time Spent with patient: 15-24 minutes Anticipated Discharge Disposition: Pending clinical course Anticipated Discharge Timeframe: Pending clinical course
[2020-01-11] MEDS: OXYCODONE-ACETAMINOPHEN 5-325 MG TABLET PO PRN (19:55)
[2020-01-11] MEDS: ATORVASTATIN CALCIUM 20 MG TABLET PO SCH (22:15)
[2020-01-12] MEDS: LEVALBUTEROL HCL NEB 1.25 MG/3 ML AMPUL NEB SCH ×3 (00:59→16:16)
[2020-01-12] MEDS: IPRATROPIUM BROMIDE 0.02% NEB 0.5 MG/2.5 ML AMPUL NEB SCH ×3 (00:59→16:16)
[2020-01-12] MEDS: OXYCODONE-ACETAMINOPHEN 5-325 MG TABLET PO PRN ×4 (01:14→21:17)
[2020-01-12 05:43] LABS: HEMATOCRIT 44.3 % (37.9-51.0); HEMOGLOBIN 15.3 g/dL (13.5-17.0); MEAN CORPUSCULAR HEMOGLOBIN 31.2 pg (27.0-33.4); MEAN CORPUSCULAR HGB CONC 34.5 g/dL (32.0-36.0); MEAN CORPUSCULAR VOLUME 90 fl (80-97); PLATELET COUNT 543 10^3/uL (150-450); RED CELL DISTRIBUTION WIDTH 14.4 % (11.5-14.0); WHITE BLOOD COUNT 11.7 10^3/uL (4.0-10.5)
[2020-01-12] MEDS: METOPROLOL TARTRATE 25 MG TABLET PO SCH ×3 (05:57→21:17)
[2020-01-12] MEDS: ENOXAPARIN SODIUM INJ 120 MG/0.8 ML DISP.SYRIN SUBCUT SCH ×2 (05:57→17:27)
[2020-01-12 06:06] LABS: ALBUMIN 3.7 g/dL (3.5-5.0); ALKALINE PHOSPHATASE 83 U/L (38-126); ANION GAP 10 (5-19); ASPARTATE AMINO TRANSFERASE 60 U/L (17-59); BILIRUBIN,DIRECT 0.3 mg/dL (0.0-0.4); BILIRUBIN,TOTAL 0.8 mg/dL (0.2-1.3); BLOOD UREA NITROGEN 32 mg/dL (7-20); CALCIUM 9.9 mg/dL (8.4-10.2); CARBON DIOXIDE 27 mmol/L (22-30); CHLORIDE 101 mmol/L (98-107); GLUCOSE 107 mg/dL (75-110); POTASSIUM 4.7 mmol/L (3.6-5.0); TOTAL PROTEIN 7.5 g/dL (6.3-8.2)
[2020-01-12] MEDS: INSULIN LISPRO 100 UNIT/ML 3 ML VIAL SUBCUT SCH ×4 (08:50→22:30)
[2020-01-12] MEDS: CEFTRIAXONE 1 GM/D5W RTU 1 GM/50 ML RTUPB IV SCH (09:13)
[2020-01-12] MEDS: DEXAMETHASONE SOD PHOS INJ 10 MG/1 ML VIAL IV SCH (09:13)
[2020-01-12] MEDS: CHOLECALCIFEROL (D3) 1,000 UNIT (25 MCG) TABLET PO SCH (09:14)
[2020-01-12] MEDS: ALLOPURINOL 300 MG TABLET PO SCH (09:14)
[2020-01-12] MEDS: FAMOTIDINE 20 MG TABLET PO SCH ×2 (09:14→21:18)
[2020-01-12] MEDS: AZITHROMYCIN 250 MG TABLET PO SCH (09:14)
[2020-01-12] MEDS: ZINC SULFATE 220 MG CAPSULE PO SCH (09:14)
[2020-01-12] MEDS: ASCORBIC ACID 500 MG TABLET PO SCH ×2 (09:14→21:18)
[2020-01-12] MEDS: ASPIRIN 81 MG TABLET, ENT COATED PO SCH (09:14)
[2020-01-12] MEDS: REMDESIVIR (EUA) 100 MG in NORMAL SALINE 250 ML IV SCH (10:42)
--- NOTE | 2020-01-12 15:30 | PDOC PROGRESS REPORT ---
Subjective Progress Note for:: 01/12/20 Subjective:: No adverse events overnight. They had to wind up putting him on BiPAP overnight. His breathing does not look much different and he still looks fatigued, but his saturations are doing a little better. Reason For Visit: ACUTE RESPIRATORY FAILURE, COVID19 Physical Exam Vital Signs: Temp Pulse Resp BP Pulse Ox 98.5 F 88 30 H 160/105 H 93 01/12/20 11:08 01/12/20 11:08 01/12/20 12:38 01/12/20 11:08 01/12/20 12:38 Intake & Output 01/11/20 01/12/20 01/13/20 06:59 06:59 06:59 Intake Total 537 1020 250 Output Total 895 675 Balance -358 345 250 Weight 114.1 kg 114.1 kg General appearance: PRESENT: mild distress, well-developed, well-nourished Head exam: PRESENT: atraumatic, normocephalic Neck exam: ABSENT: carotid bruit, JVD, lymphadenopathy, thyromegaly Respiratory exam: PRESENT: crackles ABSENT: rales, rhonchi, wheezes, accessory muscle use, tachypnea. Cardiovascular exam: PRESENT: RRR. ABSENT: diastolic murmur, rubs, systolic murmur GI/Abdominal exam: PRESENT: normal bowel sounds, soft. ABSENT: distended, guarding, mass, organolmegaly, rebound, tenderness Neurological exam: PRESENT: alert, awake, oriented to person, oriented to place, oriented to time, oriented to situation, CN II-XII grossly intact. ABSENT: motor sensory deficit Results Laboratory Results: 01/12/20 05:00 01/12/20 05:00 01/12/20 01/12/20 05:00 05:00 WBC 11.7 H RBC 4.90 Hgb 15.3 Hct 44.3 MCV 90 MCH 31.2 MCHC 34.5 RDW 14.4 H Plt Count 543 H Sodium 138.1 Potassium 4.7 Chloride 101 Carbon Dioxide 27 Anion Gap 10 BUN 32 H Creatinine 1.35 H Est GFR ( Amer) > 60 Glucose 107 Calcium 9.9 Total Bilirubin 0.8 AST 60 H Alkaline Phosphatase 83 Total Protein 7.5 Albumin 3.7 01/06/20 01/06/20 11:30 11:30 Creatine Kinase 201 H Troponin I < 0.012 Impressions: Chest X-Ray 01/06/20 11:07 IMPRESSION: Patchy left basilar interstitial and airspace opacities. Assessment and Plan - Diagnosis (1) Acute hypoxemic respiratory failure due to COVID-19 Is this a current diagnosis for this admission?: Yes (2) Acute kidney injury superimposed on CKD Is this a current diagnosis for this admission?: Yes (3) Dehydration Is this a current diagnosis for this admission?: Yes (4) Diabetes Qualifiers: Diabetes mellitus type: type 2 Diabetes mellitus jail insulin use: unspecified meterman insulin use status Diabetes mellitus complication status: without complication Qualified Code(s): E11.9 - Type 2 diabetes mellitus without complications Is this a current diagnosis for this admission?: Yes (5) Hypertension Qualifiers: Hypertension type: essential hypertension Qualified Code(s): I10 - Essential (primary) hypertension Is this a current diagnosis for this admission?: Yes (6) Pneumonia Qualifiers: Pneumonia type: due to unspecified organism Laterality: bilateral Lung location: unspecified part of lung Qualified Code(s): J18.9 - Pneumonia, unspecified organism Is this a current diagnosis for this admission?: Yes (7) Sepsis Qualifiers: Sepsis type: sepsis due to unspecified organism Severe sepsis acute organ dysfunction type: acute renal failure Severe sepsis shock status: without septic shock Is this a current diagnosis for this admission?: Yes - Plan Summary Summary: Continue Decadron and remdesivir. Also on concomittent antibiotics for potential superimposed bacterial infection. Would switched over to BiPAP last night. Clinically he looks about the same. Creatinine bumped a little bit today, will monitor that. - Time Time Spent with patient: 15-24 minutes Anticipated Discharge Disposition: Pending clinical course Anticipated Discharge Timeframe: Pending clinical course
[2020-01-12] MEDS: ATORVASTATIN CALCIUM 20 MG TABLET PO SCH (21:17)
[2020-01-13] MEDS: LEVALBUTEROL HCL NEB 1.25 MG/3 ML AMPUL NEB SCH ×3 (01:00→16:15)
[2020-01-13] MEDS: IPRATROPIUM BROMIDE 0.02% NEB 0.5 MG/2.5 ML AMPUL NEB SCH ×3 (01:00→16:15)
[2020-01-13 05:28] LABS: HEMATOCRIT 41.9 % (37.9-51.0); HEMOGLOBIN 14.3 g/dL (13.5-17.0); MEAN CORPUSCULAR HEMOGLOBIN 30.8 pg (27.0-33.4); MEAN CORPUSCULAR HGB CONC 34.1 g/dL (32.0-36.0); MEAN CORPUSCULAR VOLUME 90 fl (80-97); PLATELET COUNT 559 10^3/uL (150-450); RED BLOOD COUNT 4.65 10^6/uL (4.35-5.55); RED CELL DISTRIBUTION WIDTH 14.2 % (11.5-14.0); WHITE BLOOD COUNT 15.3 10^3/uL (4.0-10.5)
[2020-01-13 05:35] LABS: D-DIMER 1.4 ug/mL (0.00-0.50)
[2020-01-13 05:40] LABS: ALBUMIN 3.1 g/dL (3.5-5.0); ALKALINE PHOSPHATASE 88 U/L (38-126); ANION GAP 11 (5-19); ASPARTATE AMINO TRANSFERASE 67 U/L (17-59); BILIRUBIN,DIRECT 0.3 mg/dL (0.0-0.4); BILIRUBIN,TOTAL 0.7 mg/dL (0.2-1.3); BLOOD UREA NITROGEN 37 mg/dL (7-20); CALCIUM 9.9 mg/dL (8.4-10.2); CARBON DIOXIDE 23 mmol/L (22-30); CHLORIDE 104 mmol/L (98-107); GLUCOSE 111 mg/dL (75-110); POTASSIUM 5.3 mmol/L (3.6-5.0); TOTAL PROTEIN 6.2 g/dL (6.3-8.2)
[2020-01-13 05:57] LABS: ABSOLUTE LYMPHOCYTES# (MANUAL) 1.4 10^3/uL (0.5-4.7); ABSOLUTE MONOCYTES # (MANUAL) 0.8 10^3/uL (0.1-1.4); BASOPHILS % (MANUAL) 0 % (0-2); EOSINOPHILS % (MANUAL) 0 % (0-6); LYMPHOCYTES % (MANUAL) 9 % (13-45); MONOCYTES % (MANUAL) 5 % (3-13); SEGMENTED NEUTROPHILS % (MAN) 86 % (42-78); TOTAL CELLS COUNTED 100
[2020-01-13 05:59] LABS: ANISOCYTOSIS SLIGHT; PLATELET COMMENT INCREASED
[2020-01-13] MEDS: ENOXAPARIN SODIUM INJ 120 MG/0.8 ML DISP.SYRIN SUBCUT SCH ×2 (06:57→18:20)
[2020-01-13] MEDS: METOPROLOL TARTRATE 25 MG TABLET PO SCH (06:57)
[2020-01-13] MEDS: INSULIN LISPRO 100 UNIT/ML 3 ML VIAL SUBCUT SCH ×4 (08:40→21:26)
[2020-01-13] MEDS: ASCORBIC ACID 500 MG TABLET PO SCH (09:15)
[2020-01-13] MEDS: AZITHROMYCIN 250 MG TABLET PO SCH (09:15)
[2020-01-13] MEDS: ALLOPURINOL 300 MG TABLET PO SCH (09:15)
[2020-01-13] MEDS: ZINC SULFATE 220 MG CAPSULE PO SCH (09:15)
[2020-01-13] MEDS: CHOLECALCIFEROL (D3) 1,000 UNIT (25 MCG) TABLET PO SCH (09:15)
[2020-01-13] MEDS: DEXAMETHASONE SOD PHOS INJ 10 MG/1 ML VIAL IV SCH (09:15)
[2020-01-13] MEDS: FAMOTIDINE 20 MG TABLET PO SCH (09:15)
[2020-01-13] MEDS: CEFTRIAXONE 1 GM/D5W RTU 1 GM/50 ML RTUPB IV SCH (09:15)
[2020-01-13] MEDS: ASPIRIN 81 MG TABLET, ENT COATED PO SCH (09:16)
[2020-01-13 11:18] LABS: ARTERIAL BLOOD BASE EXCESS -2.6 mmol/L; ARTERIAL BLOOD FIO2 100%; ARTERIAL BLOOD H2CO3 1.04 mmol/L (1.05-1.35); ARTERIAL BLOOD HCO3 21.3 mmol/L (20-24); ARTERIAL BLOOD O2 SATURATION 85.2 % (94-98); ARTERIAL BLOOD PCO2 34.4 mmHg (35-45); ARTERIAL BLOOD PH 7.41 (7.35-7.45); ARTERIAL BLOOD PO2 48.8 mmHg (80-100); ARTERIAL BLOOD TOTAL CO2 22.3 mmol/L (23-27)
--- NOTE | 2020-01-13 11:40 | PDOC PROGRESS REPORT ---
Subjective Progress Note for:: 01/13/20 Subjective:: There is no function in this electronic record for a note for transfer between services to ICU, so this note will have to suffice for that. This is a 70-year-old male with multiple medical comorbidities including hypertension, diabetes, hyperlipidemia, and obesity who was admitted on 06 January 2020. He had tested positive for COVID-19 on 03 January 2020. He came back to the hospital because he had worsening dyspnea. He was hypoxic and was started on remdesivir and dexamethasone. He had not been on any treatment prior to hospitalization. He has also received convalescent plasma. He has been treated with empiric antibiotics for possible coexisting bacterial pneumonia. He has completed his antiviral therapy and continues on steroids. He initially was on nasal cannula and was then on a nonrebreather, which led to heated high flow nasal cannula, which is now led to BiPAP. On each of these, he has had progressive hypoxemia which required titration of his oxygen and flow rate, each time he had an initial improvement but required further adjustment which would lead to escalating modalities of oxygen support. At this point, he has been on BiPAP at 100% FiO2 for 2 days. Yesterday he looks more comfortable and was breathing around 20 times a minute. He has been intermittently febrile. His blood cultures have been negative. Today, he has increased work of breathing, his oxygen saturations remain in the low 80s, and his respiratory rate is in the 30s and 40s. His ABG on 100% FiO2 on BiPAP showed a PO2 in the 40s. His chest x-ray also shows escalating interstitial edema. He took his BiPAP off for just a moment while the nurse was in the room and became encephalopathic and his oxygen saturations dropped to 50%. He recovered to the low 80s after a few minutes back on BiPAP, which had been replaced immediately by his nurse. Asked the ICU to evaluate this patient for possible transfer. Dr. Grady came up to see him and agreed to accept the patient to the ICU. He said the patient was asking him to be intubated. The patient has not been receiving much IV fluid because we have been trying to keep him a little on the dry side. Reason For Visit: ACUTE RESPIRATORY FAILURE, COVID19 Physical Exam Vital Signs: Temp Pulse Resp BP Pulse Ox 98.4 F 97 41 H 132/86 H 90 L 01/13/20 10:00 01/13/20 08:30 01/13/20 08:30 01/13/20 08:30 01/13/20 08:42 Intake & Output 01/12/20 01/13/20 01/14/20 06:59 06:59 06:59 Intake Total 1020 325 100 Output Total 675 575 Balance 345 -250 100 Weight 114.1 kg 115.2 kg General appearance: PRESENT: cooperative, disheveled, severe distress, other - Sweaty Respiratory exam: PRESENT: accessory muscle use, decreased breath sounds, rhonchi, symmetrical, tachypnea. ABSENT: chest wall tenderness, prolonged expiratory phas, unlabored, wheezes Cardiovascular exam: PRESENT: +S1, +S2, tachycardia Pulses: PRESENT: normal carotid pulses Vascular exam: PRESENT: normal capillary refill GI/Abdominal exam: PRESENT: normal bowel sounds, soft. ABSENT: distended, guarding, rebound, tenderness Extremities exam: ABSENT: clubbing, pedal edema Musculoskeletal exam: PRESENT: normal inspection. ABSENT: deformity Neurological exam: PRESENT: awake, oriented to person, oriented to place, oriented to situation Psychiatric exam: PRESENT: flat affect Skin exam: PRESENT: warm, other - Sweaty Results Laboratory Results: 01/13/20 04:40 01/13/20 04:40 01/13/20 01/13/20 01/13/20 04:40 04:40 11:07 WBC 15.3 H RBC 4.65 Hgb 14.3 Hct 41.9 MCV 90 MCH 30.8 MCHC 34.1 RDW 14.2 H Plt Count 559 H Seg Neutrophils % Not Reportable Carbonic Acid 1.04 L HCO3/H2CO3 Ratio 20:1 ABG pH 7.41 ABG pCO2 34.4 L ABG pO2 48.8 L ABG HCO3 21.3 ABG O2 Saturation 85.2 L ABG Base Excess -2.6 FiO2 100% Sodium 137.7 Potassium 5.3 H Chloride 104 Carbon Dioxide 23 Anion Gap 11 BUN 37 H Creatinine 1.02 Est GFR ( Amer) > 60 Glucose 111 H Calcium 9.9 Total Bilirubin 0.7 AST 67 H Alkaline Phosphatase 88 Total Protein 6.2 L Albumin 3.1 L 01/06/20 01/06/20 11:30 11:30 Creatine Kinase 201 H Troponin I < 0.012 Assessment and Plan - Diagnosis (1) Acute hypoxemic respiratory failure due to COVID-19 Is this a current diagnosis for this admission?: Yes (2) Acute kidney injury superimposed on CKD Is this a current diagnosis for this admission?: Yes (3) Dehydration Is this a current diagnosis for this admission?: Yes (4) Diabetes Qualifiers: Diabetes mellitus type: type 2 Diabetes mellitus terminal block assembler insulin use: unspecified longterm insulin use status Diabetes mellitus complication status: without complication Qualified Code(s): E11.9 - Type 2 diabetes mellitus without complications Is this a current diagnosis for this admission?: Yes (5) Hypertension Qualifiers: Hypertension type: essential hypertension Qualified Code(s): I10 - Essential (primary) hypertension Is this a current diagnosis for this admission?: Yes (6) Sepsis Qualifiers: Sepsis type: sepsis due to unspecified organism Severe sepsis acute organ dysfunction type: acute renal failure Severe sepsis shock status: without septic shock Is this a current diagnosis for this admission?: Yes - Plan Summary Summary: Continue Decadron and remdesivir. Also on concomittent antibiotics for potential superimposed bacterial infection. Has received convalescent plasma as well. He is essentially on maximal BiPAP support. His hypoxemia continues to worsen and clinically he is deteriorating. The ICU is accepting him in transfer this morning. - Time Time Spent with patient: 35 or more minutes Anticipated Discharge Disposition: Pending clinical course Anticipated Discharge Timeframe: Pending clinical course
--- NOTE | 2020-01-13 11:56 | RADIOLOGY REPORT (SQ) ---
EXAM DESCRIPTION: CHEST SINGLE VIEW IMAGES COMPLETED DATE/TIME: 01/13/2020 11:16 am REASON FOR STUDY: worsening hypoxemia COMPARISON: AP chest 01/06/2020, 01/03/2020 CT chest 01/03/2020 EXAM PARAMETERS: NUMBER OF VIEWS: One view. TECHNIQUE: Single frontal radiographic view of the chest acquired. RADIATION DOSE: NA LIMITATIONS: None. FINDINGS: LUNGS AND PLEURA: Progressive increased opacification periphery of both lungs worrisome fo r progressive pneumonia. No pleural effusion. No pneumothorax. MEDIASTINUM AND HILAR STRUCTURES: No masses. Contour normal. HEART AND VASCULAR STRUCTURES: Heart normal in size. Normal vasculature. BONES: No acute findings. HARDWARE: None in the chest. OTHER: No other significant finding. IMPRESSION: Worsening peripheral bilateral pneumonia. TECHNICAL DOCUMENTATION: JOB ID: [id number] [employer] [address]- All Rights Reserved Reading location - IP/workstation name: [id number]
[2020-01-13] MEDS ORDERED: ETOMIDATE INJ/PF 20 MG/10 ML SDV IV ONE (12:16)
[2020-01-13] MEDS ORDERED: PROPOFOL INJ 200 MG/20 ML VIAL IV ONE (12:31)
[2020-01-13] MEDS ORDERED: DEXMEDETOMIDINE IN 0.9 % NACL 400 MCG/100 ML RTUPB IV ONE (12:31)
[2020-01-13] MEDS ORDERED: FENTANYL CITRATE INJ/PF 100 MCG/2 ML AMPUL ONE (12:59)
[2020-01-13] MEDS: RINGERS SOLUTION,LACTATED 1,000 ML IV PRN ×2 (13:00→23:41)
[2020-01-13] MEDS ORDERED: PHARMACY COMMUNICATION ORDER MC NR (13:00)
[2020-01-13] MEDS: DEXMEDETOMIDINE IN 0.9 % NACL 400 MCG/100 ML RTUPB IV PRN ×4 (13:03→21:41)
[2020-01-13] MEDS ORDERED: ACETAMINOPHEN 325 MG TABLET NG PRN (13:04)
[2020-01-13] MEDS ORDERED: FENTANYL CITRATE INJ/PF 100 MCG/2 ML AMPUL IV PRN (13:04)
--- NOTE | 2020-01-13 13:18 | CRITICAL CARE ADMISSION REPORT ---
HPI Date:: 01/13/20 Time:: 12:00 Reason for ICU Reason:: Intubation for worsening Covid-PNA Admission Date/Time & PCP: Admission Date/Time: 01/06/20 14:38 Primary Care Provider: TREVOR MOY HPI: This patient is a 70 yo man with Coivid-19. Getting slowly worse from a respiratory standpoint. He is on bipap 100% and tachypnic to 40 with O2 saturations on 100% at 85-90 with frequent dips to 70s. He was off bipap for 'a few minutes' and his saturations dropped to the 60s, confused dusky with no return to his baseline. The patient was brought to the ICU and intubated by anesthesia easily. Although the intubation was quick and uneventful it took several minutes for him to return to mid 80s. He is sedated on precedex. History obtained from:: Dr. Zepeda and old records. Nursing staff and patient - Diagnosis/Plan (1) Acute hypoxemic respiratory failure due to COVID-19 Is this a current diagnosis for this admission?: Yes Plan: This is the main reason for intubation and respiratory failure. He will need respiratoryu suport likely for a few days. He is overweight, -K[place], hypertensive, diabetic and 70 yo. All markers for poorer prognosis. 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 Past Medical History Cardiac Medical History: Reports: Hyperlipidema, Hypertension Endocrine Medical History: Reports: Diabetes Mellitus Type 2 Musculoskeltal Medical History: Reports: Arthritis Psychiatric Medical History: Denies: Depression Past Surgical History Past Surgical History: Reports: Orthopedic Surgery - ORIF ankle Social/Family History - Social History Lives with: Spouse/Significant other Smoking Status: Former Smoker - Quit 25 years ago Last Time Smoked: 03/29/1989 Frequency of Alcohol Use: None Hx Recreational Drug Use: Yes Drugs: Cocaine, Marijuana Hx Prescription Drug Abuse: No - Medication/Allergies Home Medications: Allopurinol [Zyloprim 300 mg Tablet] 300 mg PO DAILY 09/03/19 Atorvastatin Calcium [Lipitor 20 mg Tablet] 20 mg PO QHS 09/03/19 Lisinopril/Hydrochlorothiazide [Lisinopril-Hctz 20-25 mg Tab] 1 each PO DAILY 09/03/19 Metformin HCl 1,000 mg PO DAILY 09/03/19 Albuterol Sulfate [Proair HFA Inhalation Aerosol 8.5 gm MDI] 2 puff IH Q4H PRN #1 mdi 01/03/20 Azithromycin [Zithromax 250 mg Tablet] 250 mg PO ASDIR PRN #6 tablet 01/03/20 Dexamethasone [Decadron 4 Mg Tablet] 4 mg PO DAILY #7 tablet 01/03/20 Ibuprofen [Ibu] 800 mg PO BID 01/07/20 Loratadine [Claritin 10 mg Tablet] 10 mg PO DAILY 01/07/20 Multivitamin [Tab-A-Lopez] 1 each PO DAILY 01/07/20 Allergies/Adverse Reactions: No Known Allergies Allergy (Verified 09/02/19 09:54) Physical Exam Vital Signs: Temp Pulse Resp BP Pulse Ox 98.4 F 97 41 H 132/86 H 90 L 01/13/20 10:00 01/13/20 08:30 01/13/20 08:30 01/13/20 08:30 01/13/20 08:42 Intake & Output 01/12/20 01/13/20 01/14/20 06:59 06:59 06:59 Intake Total 1020 325 100 Output Total 675 575 Balance 345 -250 100 Weight 114.1 kg 115.2 kg Weight/Height Weight 115.2 kg Height 6 ft 1 in Laboratory/Radiographs Laboratory Results: 01/13/20 04:40 01/13/20 04:40 01/13/20 01/13/20 01/13/20 04:40 04:40 11:07 WBC 15.3 H RBC 4.65 Hgb 14.3 Hct 41.9 MCV 90 MCH 30.8 MCHC 34.1 RDW 14.2 H Plt Count 559 H Seg Neutrophils % Not Reportable Carbonic Acid 1.04 L HCO3/H2CO3 Ratio 20:1 ABG pH 7.41 ABG pCO2 34.4 L ABG pO2 48.8 L ABG HCO3 21.3 ABG O2 Saturation 85.2 L ABG Base Excess -2.6 FiO2 100% Sodium 137.7 Potassium 5.3 H Chloride 104 Carbon Dioxide 23 Anion Gap 11 BUN 37 H Creatinine 1.02 Est GFR ( Amer) > 60 Glucose 111 H Calcium 9.9 Total Bilirubin 0.7 AST 67 H Alkaline Phosphatase 88 Total Protein 6.2 L Albumin 3.1 L 01/06/20 01/06/20 11:30 11:30 Creatine Kinase 201 H Troponin I < 0.012 Impressions: Chest X-Ray 01/13/20 00:00 IMPRESSION: Worsening peripheral bilateral pneumonia. Critical Time Critical Time (minutes): 45 -: The care of a critically ill patient is dynamic. This note represents a static moment in the admission process. Orders and treatments may be given simultaneously and urgently, and time is not retail wireless sales representative of the treatment process. This patient requires Critical Care secondary to life threatening organ or limb dysfunction. Without Critical Care services, the patient is at risk for increased mortality and morbidity.
[2020-01-13] MEDS: LORAZEPAM INJ 2 MG/1 ML VIAL IV PRN (13:25)
[2020-01-13] MEDS ORDERED: OXYCODONE-ACETAMINOPHEN 5-325 MG TABLET NG PRN (13:27)
[2020-01-13] MEDS: FENTANYL CITRATE/PF 600 MCG/60 ML BAG IV PRN ×2 (13:49→19:30)
[2020-01-13] MEDS: METOPROLOL TARTRATE 25 MG TABLET NG SCH ×2 (14:00→21:25)
[2020-01-13] MEDS ORDERED: SUCCINYLCHOLINE CHLORIDE INJ 200 MG/10 ML VIAL ONE (14:19)
--- NOTE | 2020-01-13 15:36 | RADIOLOGY REPORT (SQ) ---
EXAM DESCRIPTION: CHEST SINGLE VIEW IMAGES COMPLETED DATE/TIME: 01/13/2020 2:00 pm REASON FOR STUDY: ETT PLACED COMPARISON: AP chest 01/13/2020, 1108 hours EXAM PARAMETERS: NUMBER OF VIEWS: One view. TECHNIQUE: Single frontal radiographic view of the chest acquired. RADIATION DOSE: NA LIMITATIONS: None. FINDINGS: LUNGS AND PLEURA: No change in diffuse bilateral airspace. No pleural effusion. No pneumothorax. MEDIASTINUM AND HILAR STRUCTURES: No masses. Contour normal. HEART AND VASCULAR STRUCTURES: Heart normal in size. Normal vasculature. BONES: No acute findings. HARDWARE: Endotracheal tube tip 5 cm above the nati nasogastric tube tip and side port in the stoma ch OTHER: No other significant finding. IMPRESSION: No change in diffuse bilateral airspace. Endotracheal tube, nasogastric tube in good positioning TECHNICAL DOCUMENTATION: JOB ID: [id number] 2010 [employer]- All Rights Reserved Reading location - IP/workstation name: [id number]
[2020-01-13 16:49] LABS: ARTERIAL BLOOD BASE EXCESS -2.7 mmol/L; ARTERIAL BLOOD H2CO3 1.23 mmol/L (1.05-1.35); ARTERIAL BLOOD HCO3 22.5 mmol/L (20-24); ARTERIAL BLOOD O2 SATURATION 95.6 % (94-98); ARTERIAL BLOOD PCO2 40.9 mmHg (35-45); ARTERIAL BLOOD PH 7.36 (7.35-7.45); ARTERIAL BLOOD PO2 81.6 mmHg (80-100); ARTERIAL BLOOD TOTAL CO2 23.8 mmol/L (23-27)
[2020-01-13 16:50] LABS: ARTERIAL BLOOD FIO2 100%
[2020-01-13] MEDS: AMINO AC/PROTEIN HYDR/WHEY PRO 11 GM/45 ML PKT NG SCH (18:21)
[2020-01-13] MEDS: ASCORBIC ACID 500 MG TABLET NG SCH (21:25)
[2020-01-13] MEDS: FAMOTIDINE 20 MG TABLET NG SCH (21:25)
[2020-01-13] MEDS: ATORVASTATIN CALCIUM 20 MG TABLET NG SCH (21:26)
[2020-01-14] MEDS: LEVALBUTEROL HCL NEB 1.25 MG/3 ML AMPUL NEB SCH ×3 (00:10→15:56)
[2020-01-14] MEDS: IPRATROPIUM BROMIDE 0.02% NEB 0.5 MG/2.5 ML AMPUL NEB SCH ×3 (00:10→15:56)
[2020-01-14] MEDS: DEXMEDETOMIDINE IN 0.9 % NACL 400 MCG/100 ML RTUPB IV PRN ×7 (03:30→21:28)
[2020-01-14 04:58] LABS: HEMATOCRIT 38.4 % (37.9-51.0); HEMOGLOBIN 12.9 g/dL (13.5-17.0); MEAN CORPUSCULAR HEMOGLOBIN 30.3 pg (27.0-33.4); MEAN CORPUSCULAR HGB CONC 33.5 g/dL (32.0-36.0); MEAN CORPUSCULAR VOLUME 91 fl (80-97); RED BLOOD COUNT 4.25 10^6/uL (4.35-5.55); RED CELL DISTRIBUTION WIDTH 14.2 % (11.5-14.0); WHITE BLOOD COUNT 16.9 10^3/uL (4.0-10.5)
[2020-01-14 05:15] LABS: ANION GAP 11 (5-19); BLOOD UREA NITROGEN 51 mg/dL (7-20); CALCIUM 9.3 mg/dL (8.4-10.2); CARBON DIOXIDE 22 mmol/L (22-30); CHLORIDE 104 mmol/L (98-107); GLUCOSE 150 mg/dL (75-110); POTASSIUM 5.6 mmol/L (3.6-5.0)
[2020-01-14] MEDS: METOPROLOL TARTRATE 25 MG TABLET NG SCH ×2 (05:28→14:38)
[2020-01-14] MEDS: ENOXAPARIN SODIUM INJ 120 MG/0.8 ML DISP.SYRIN SUBCUT SCH ×2 (05:29→17:23)
[2020-01-14 05:32] LABS: ABSOLUTE LYMPHOCYTES# (MANUAL) 0.7 10^3/uL (0.5-4.7); ABSOLUTE MONOCYTES # (MANUAL) 0.3 10^3/uL (0.1-1.4); BAND NEUTROPHILS % (MANUAL) 2 % (3-5); BASOPHILS % (MANUAL) 0 % (0-2); EOSINOPHILS % (MANUAL) 0 % (0-6); LYMPHOCYTES % (MANUAL) 3 % (13-45); MONOCYTES % (MANUAL) 2 % (3-13); PLATELET CLUMPS PRESENT; PLATELET COMMENT INCREASED; SEGMENTED NEUTROPHILS % (MAN) 92 % (42-78); TOTAL CELLS COUNTED 100
[2020-01-14 05:33] LABS: HYPERSEGMENTED NEUTROPHILS PRESENT
[2020-01-14 05:34] LABS: SCHISTOCYTES SLIGHT
[2020-01-14 05:35] LABS: ANISOCYTOSIS SLIGHT; POLYCHROMASIA SLIGHT
[2020-01-14 05:38] LABS: PLATELET COUNT 494 10^3/uL (150-450)
[2020-01-14] MEDS: FENTANYL CITRATE/PF 600 MCG/60 ML BAG IV PRN ×3 (08:17→18:47)
[2020-01-14 08:28] LABS: ARTERIAL BLOOD BASE EXCESS -1.9 mmol/L; ARTERIAL BLOOD H2CO3 1.16 mmol/L (1.05-1.35); ARTERIAL BLOOD HCO3 22.8 mmol/L (20-24); ARTERIAL BLOOD O2 SATURATION 89.6 % (94-98); ARTERIAL BLOOD PCO2 38.6 mmHg (35-45); ARTERIAL BLOOD PH 7.39 (7.35-7.45); ARTERIAL BLOOD PO2 57.2 mmHg (80-100)
[2020-01-14 08:29] LABS: ARTERIAL BLOOD FIO2 100%
[2020-01-14] MEDS: INSULIN LISPRO 100 UNIT/ML 3 ML VIAL SUBCUT SCH ×3 (08:34→15:40)
[2020-01-14] MEDS: RINGERS SOLUTION,LACTATED 1,000 ML IV PRN ×2 (08:56→19:06)
[2020-01-14] MEDS: ASCORBIC ACID 500 MG TABLET NG SCH ×2 (09:01→21:15)
[2020-01-14] MEDS: ASPIRIN 81 MG TABLET, ENT COATED PO SCH (09:01)
[2020-01-14] MEDS: FAMOTIDINE 20 MG TABLET NG SCH ×2 (09:01→21:15)
[2020-01-14] MEDS: DEXAMETHASONE SOD PHOS INJ 10 MG/1 ML VIAL IV SCH (09:06)
[2020-01-14] MEDS: CEFTRIAXONE 1 GM/D5W RTU 1 GM/50 ML RTUPB IV SCH (09:09)
[2020-01-14] MEDS: MULTIVITAMIN TABLET PO SCH (09:18)
[2020-01-14] MEDS: ALLOPURINOL 300 MG TABLET NG SCH (09:18)
[2020-01-14] MEDS: AZITHROMYCIN 250 MG TABLET NG SCH (09:18)
[2020-01-14] MEDS: ZINC SULFATE 220 MG CAPSULE NG SCH (09:18)
[2020-01-14] MEDS: CHOLECALCIFEROL (D3) 1,000 UNIT (25 MCG) TABLET NG SCH (09:18)
[2020-01-14] MEDS: AMINO AC/PROTEIN HYDR/WHEY PRO 11 GM/45 ML PKT NG SCH ×2 (09:19→17:23)
--- NOTE | 2020-01-14 09:31 | PDOC CRITICAL CARE PROG REPORT ---
General Date:: 01/14/20 ICU Day:: 2 Ventilator Day:: 2 Hospital Day:: 8 Resuscitation Status: Full Code Events in the past 12 to 24 Hours:: More comfortable and sedated. Review of systems relevant to events:: Pulmonary Reason for ICU Addmission:: Intubation for worsening Covid-PNA - Medications: Medications reviewed and adjusted accordingly: Yes Vasopressors:: None Sedation:: Precedex Physical Exam Vital Signs: Temp Pulse Resp BP Pulse Ox 101.1 F H 88 26 H 124/84 96 01/14/20 08:00 01/14/20 08:45 01/14/20 08:45 01/14/20 08:00 01/14/20 08:45 Intake & Output 01/13/20 01/14/20 01/15/20 06:59 06:59 06:59 Intake Total 325 1482 100 Output Total 575 615 190 Balance -250 867 -90 Weight 115.2 kg 112.5 kg Weight/Height Weight 112.5 kg Height 6 ft 1 in General appearance: PRESENT: no acute distress, obese Head exam: PRESENT: atraumatic, normocephalic Eye exam: PRESENT: conjunctiva pink, EOMI, PERRLA. ABSENT: scleral icterus Ear exam: PRESENT: normal external ear exam Mouth exam: PRESENT: moist, tongue midline Respiratory exam: PRESENT: clear to auscultation vernon, rhonchi. ABSENT: rales, wheezes Cardiovascular exam: PRESENT: RRR. ABSENT: diastolic murmur, rubs, systolic murmur GI/Abdominal exam: PRESENT: normal bowel sounds, soft. ABSENT: distended, guarding, mass, organolmegaly, rebound, tenderness Rectal exam: PRESENT: deferred Gentrourinary exam: PRESENT: indwelling catheter Extremities exam: PRESENT: full ROM. ABSENT: calf tenderness, clubbing, pedal edema Musculoskeletal exam: PRESENT: normal inspection Neurological exam: PRESENT: other - Sedated. Skin exam: PRESENT: dry, intact, warm. ABSENT: cyanosis, rash Tubes/Lines: PRESENT: Endotracheal Tube, Nasogastic Tube Laboratory/Radiographs Laboratory Results: 01/14/20 04:20 01/14/20 04:20 01/13/20 01/13/20 01/14/20 11:07 16:33 04:20 WBC 16.9 H RBC 4.25 L Hgb 12.9 L Hct 38.4 MCV 91 MCH 30.3 MCHC 33.5 RDW 14.2 H Plt Count 494 H Seg Neutrophils % Not Reportable Carbonic Acid 1.04 L 1.23 HCO3/H2CO3 Ratio 20:1 18:1 ABG pH 7.41 7.36 ABG pCO2 34.4 L 40.9 ABG pO2 48.8 L 81.6 ABG HCO3 21.3 22.5 ABG O2 Saturation 85.2 L 95.6 ABG Base Excess -2.6 -2.7 FiO2 100% 100% Sodium Potassium Chloride Carbon Dioxide Anion Gap BUN Creatinine Est GFR ( Amer) Glucose Calcium 01/14/20 01/14/20 04:20 08:15 WBC RBC Hgb Hct MCV MCH MCHC RDW Plt Count Seg Neutrophils % Carbonic Acid 1.16 HCO3/H2CO3 Ratio 19:1 ABG pH 7.39 ABG pCO2 38.6 ABG pO2 57.2 L ABG HCO3 22.8 ABG O2 Saturation 89.6 L ABG Base Excess -1.9 FiO2 100% Sodium 136.7 L Potassium 5.6 H Chloride 104 Carbon Dioxide 22 Anion Gap 11 BUN 51 H Creatinine 1.27 H Est GFR ( Amer) > 60 Glucose 150 H Calcium 9.3 01/06/20 01/06/20 11:30 11:30 Creatine Kinase 201 H Troponin I < 0.012 Impressions: Chest X-Ray 01/13/20 13:01 IMPRESSION: No change in diffuse bilateral airspace. Endotracheal tube, nasogastric tube in good positioning All labs, radiographs, diagnostic studies and EKGs were personally reviewed: Yes In addition, reports of radiographic and diagnostic studies were read: Yes Assessment and Plan - Diagnosis (1) Acute hypoxemic respiratory failure due to COVID-19 Is this a current diagnosis for this admission?: Yes Plan: No change will try and wean down FIO2 if possible. 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 Will add hydralazine as HR is too low for more beta blockers. Plan Summary: Wean FIO2 as tolerated. Suspect a rather prolonged vent course. Critical Time Critical Time (minutes): 35 Level of Care: ICU Anticipated discharge: Home Anticipated DC Timeframe: Other -: 1. The care of a critical patient is a dynamic process. This note is a telemarketing representative synopsis but static in nature. The timeframe for treatments given in order is not necessarily the actual time these treatments may have been done. 2. This patient requires critical care secondary to ongoing requirements for therapy not offered or safe outside the critical care environment. Transfer to a lower level of care will result in altered life or limb morbidity and mortality. 3. Multidisciplinary rounds completed. 4. ABCDE bundle addressed.
[2020-01-14] MEDS ORDERED: ENOXAPARIN SODIUM INJ 40 MG/0.4 ML DISP.SYRIN SUBCUT SCH (10:00)
[2020-01-14] MEDS: LORAZEPAM INJ 2 MG/1 ML VIAL IV PRN (15:25)
[2020-01-14] MEDS: ATORVASTATIN CALCIUM 20 MG TABLET NG SCH (21:15)
[2020-01-14] MEDS ORDERED: VECURONIUM BROMIDE INJ 10 MG VIAL IV ONE ×2 (21:33→23:59)
[2020-01-14] MEDS ORDERED: PROPOFOL 1,000 MG/100 ML INFUS..BTL IV ONE ×2 (21:34→23:43)
[2020-01-14] MEDS ORDERED: PROPOFOL INJ 200 MG/20 ML VIAL IV ONE ×2 (21:37→23:59)
[2020-01-14] MEDS: PROPOFOL 1,000 MG/100 ML INFUS..BTL IV PRN (22:05)
[2020-01-15] MEDS: INSULIN LISPRO 100 UNIT/ML 3 ML VIAL SUBCUT SCH ×4 (00:35→19:20)
[2020-01-15] MEDS ORDERED: ACETAMINOPHEN 650 MG SUPP.RECT PR PRN (00:37)
[2020-01-15] MEDS ORDERED: ACETAMINOPHEN 650 MG SUPP.RECT PR ONE (00:37)
[2020-01-15] MEDS: PROPOFOL 1,000 MG/100 ML INFUS..BTL IV PRN ×4 (00:38→12:21)
[2020-01-15] MEDS: FENTANYL CITRATE/PF 600 MCG/60 ML BAG IV PRN ×3 (00:39→12:10)
[2020-01-15] MEDS: IPRATROPIUM BROMIDE 0.02% NEB 0.5 MG/2.5 ML AMPUL NEB SCH ×3 (00:56→15:34)
[2020-01-15] MEDS: LEVALBUTEROL HCL NEB 1.25 MG/3 ML AMPUL NEB SCH ×3 (00:56→15:34)
[2020-01-15 05:01] LABS: HEMATOCRIT 39.6 % (37.9-51.0); HEMOGLOBIN 13.7 g/dL (13.5-17.0); MEAN CORPUSCULAR HEMOGLOBIN 31.3 pg (27.0-33.4); MEAN CORPUSCULAR HGB CONC 34.6 g/dL (32.0-36.0); MEAN CORPUSCULAR VOLUME 90 fl (80-97); PLATELET COUNT 471 10^3/uL (150-450); RED BLOOD COUNT 4.38 10^6/uL (4.35-5.55); RED CELL DISTRIBUTION WIDTH 14.4 % (11.5-14.0)
[2020-01-15] MEDS: RINGERS SOLUTION,LACTATED 1,000 ML IV PRN (05:06)
[2020-01-15 05:09] LABS: ANION GAP 7 (5-19); BLOOD UREA NITROGEN 55 mg/dL (7-20); CALCIUM 9.8 mg/dL (8.4-10.2); CARBON DIOXIDE 26 mmol/L (22-30); CHLORIDE 105 mmol/L (98-107); GLUCOSE 128 mg/dL (75-110); POTASSIUM 5.5 mmol/L (3.6-5.0)
[2020-01-15 05:25] LABS: D-DIMER 4.06 ug/mL (0.00-0.50)
[2020-01-15] MEDS: ENOXAPARIN SODIUM INJ 120 MG/0.8 ML DISP.SYRIN SUBCUT SCH ×2 (05:28→17:36)
[2020-01-15 05:31] LABS: ABSOLUTE LYMPHOCYTES# (MANUAL) 0.4 10^3/uL (0.5-4.7); ABSOLUTE MONOCYTES # (MANUAL) 0.2 10^3/uL (0.1-1.4); BASOPHILS % (MANUAL) 0 % (0-2); EOSINOPHILS % (MANUAL) 0 % (0-6); LYMPHOCYTES % (MANUAL) 2 % (13-45); MONOCYTES % (MANUAL) 1 % (3-13); SEGMENTED NEUTROPHILS % (MAN) 97 % (42-78); TOTAL CELLS COUNTED 100
[2020-01-15 05:33] LABS: ANISOCYTOSIS SLIGHT; PLATELET COMMENT ADEQUATE; POIKILOCYTOSIS SLIGHT; TEAR DROP CELLS 1+; TOXIC GRANULATION 1+
[2020-01-15 06:28] LABS: ARTERIAL BLOOD BASE EXCESS -5.9 mmol/L; ARTERIAL BLOOD O2 SATURATION 92.6 % (94-98); ARTERIAL BLOOD PCO2 46.4 mmHg (35-45); ARTERIAL BLOOD PH 7.27 (7.35-7.45); ARTERIAL BLOOD PO2 72.7 mmHg (80-100); ARTERIAL BLOOD TOTAL CO2 22.4 mmol/L (23-27)
[2020-01-15 06:29] LABS: ARTERIAL BLOOD FIO2 100%
[2020-01-15] MEDS: FAMOTIDINE 20 MG TABLET NG SCH (09:57)
[2020-01-15] MEDS: ZINC SULFATE 220 MG CAPSULE NG SCH (09:57)
[2020-01-15] MEDS: AZITHROMYCIN 250 MG TABLET NG SCH (09:57)
[2020-01-15] MEDS: CHOLECALCIFEROL (D3) 1,000 UNIT (25 MCG) TABLET NG SCH (09:57)
[2020-01-15] MEDS: ASCORBIC ACID 500 MG TABLET NG SCH (09:57)
[2020-01-15] MEDS: MULTIVITAMIN TABLET PO SCH (09:57)
[2020-01-15] MEDS: DEXAMETHASONE SOD PHOS INJ 10 MG/1 ML VIAL IV SCH (09:58)
[2020-01-15] MEDS: AMINO AC/PROTEIN HYDR/WHEY PRO 11 GM/45 ML PKT NG SCH ×2 (09:58→17:37)
[2020-01-15] MEDS: ALLOPURINOL 300 MG TABLET NG SCH (09:58)
[2020-01-15] MEDS ORDERED: ASPIRIN 81 MG TABLET, CHEWABLE NG SCH (10:00)
[2020-01-15] MEDS: CEFTRIAXONE 1 GM/D5W RTU 1 GM/50 ML RTUPB IV SCH (10:00)
[2020-01-15] MEDS ORDERED: ONDANSETRON HCL INJ/PF 4 MG/2 ML SDV IV PRN (11:00)
[2020-01-15] MEDS ORDERED: PROMETHAZINE HCL INJ 25 MG/1 ML VIAL IV PRN (11:00)
--- NOTE | 2020-01-15 13:48 | RADIOLOGY REPORT (SQ) ---
EXAM DESCRIPTION: KUB/ABDOMEN (SINGLE VIEW) IMAGES COMPLETED DATE/TIME: 01/15/2020 11:44 am REASON FOR STUDY: og tube position COMPARISON: None. NUMBER OF VIEWS: One view. TECHNIQUE: Supine radiographic image of the abdomen acquired. LIMITATIONS: None. FINDINGS: BOWEL GAS PATTERN: Normal bowel gas pattern. No dilated loops. CALCIFICATIONS: No suspicious calcifications. SOFT TISSUES: No gross mass or suggestion of organomegaly. HARDWARE: Oral gastric tube is 4 cm inside the stomach. BONES: No acute fracture. No worrisome bone lesions. OTHER: No other significant finding. IMPRESSION: Tube as described. TECHNICAL DOCUMENTATION: JOB ID: [id number] 2010 [employer]- All Rights Reserved Reading location - IP/workstation name: [email or web address]
[2020-01-15] MEDS ORDERED: FUROSEMIDE INJ/PF 40 MG/4 ML SDV ONE (15:24)
[2020-01-15] MEDS ORDERED: SODIUM BICARBONATE 8.4% INJ 50 MEQ/50 ML DISP.SYRIN ONE ×5 (15:56→21:04)
[2020-01-15] MEDS ORDERED: EPINEPHRINE INJ 1 MG/10 ML DISP.SYRIN ONE ×6 (15:56→21:21)
[2020-01-15 16:04] LABS: ARTERIAL BLOOD BASE EXCESS -6.4 mmol/L; ARTERIAL BLOOD H2CO3 1.15 mmol/L (1.05-1.35); ARTERIAL BLOOD HCO3 19.1 mmol/L (20-24); ARTERIAL BLOOD O2 SATURATION 85.4 % (94-98); ARTERIAL BLOOD PCO2 38.2 mmHg (35-45); ARTERIAL BLOOD PH 7.32 (7.35-7.45); ARTERIAL BLOOD PO2 53.7 mmHg (80-100); ARTERIAL BLOOD TOTAL CO2 20.3 mmol/L (23-27)
[2020-01-15 16:05] LABS: ARTERIAL BLOOD FIO2 100%
[2020-01-15 16:22] LABS: ANION GAP 15 (5-19); BLOOD UREA NITROGEN 55 mg/dL (7-20); CALCIUM 10.4 mg/dL (8.4-10.2); CARBON DIOXIDE 23 mmol/L (22-30); CHLORIDE 102 mmol/L (98-107); GLUCOSE 135 mg/dL (75-110); POTASSIUM 5.1 mmol/L (3.6-5.0)
[2020-01-15] MEDS ORDERED: ETOMIDATE INJ/PF 20 MG/10 ML SDV IV ONE ×2 (16:29→20:19)
[2020-01-15] MEDS ORDERED: FUROSEMIDE INJ/PF 40 MG/4 ML SDV IV ONE (17:00)
[2020-01-15] MEDS ORDERED: METOPROLOL TARTRATE PF/INJ 5 MG/5 ML SDV IV ONE (17:26)
[2020-01-15] MEDS ORDERED: METOPROLOL TARTRATE PF/INJ 5 MG/5 ML SDV IV PRN (17:26)
[2020-01-15 18:00] LABS: ARTERIAL BLOOD BASE EXCESS -6.9 mmol/L; ARTERIAL BLOOD H2CO3 1.13 mmol/L (1.05-1.35); ARTERIAL BLOOD HCO3 18.5 mmol/L (20-24); ARTERIAL BLOOD O2 SATURATION 79.5 % (94-98); ARTERIAL BLOOD PCO2 37.6 mmHg (35-45); ARTERIAL BLOOD PH 7.31 (7.35-7.45); ARTERIAL BLOOD PO2 47.1 mmHg (80-100); ARTERIAL BLOOD TOTAL CO2 19.7 mmol/L (23-27)
[2020-01-15 18:02] LABS: ARTERIAL BLOOD FIO2 100%
[2020-01-15 18:07] VITALS: BP 158/86
--- NOTE | 2020-01-15 18:38 | PDOC CRITICAL CARE PROG REPORT ---
General Date:: 01/15/20 ICU Day:: 3 Ventilator Day:: 3 Hospital Day:: 10 Resuscitation Status: Full Code Events in the past 12 to 24 Hours:: This 70-year-old -[place] Islander male was admitted to [facility] on 01/06/2020 with increasing shortness of breath. COVID-19 test performed on 01/03/2020 returned a positive result. In the emergency department, laboratory evaluation was compatible with COVID-19 case definitions. He was admitted with acute hypoxic respiratory failure and COVID-19 pneumonia. He was admitted to the hospitalist service. On 01/13/2020, the patient transferred to the ICU and intubated for persistent hypoxemia and tachypnea despite BiPAP support. 01/14: Remains intubated. On propofol/fentanyl for sedation. Proned at approximately 2150 last night. Still in prone position. Review of this patient's treatment course reveals that the patient has completed a 5-day course of remdesivir. On dexamethasone. However, he continued to experience clinical deterioration and has ended up on mechanical ventilatory support. FiO2 100%. PEEP 12. Ventilator settings adjusted at bedside this morning. Now on SIMV (PC) f 12, Pi 8, FiO2 100%, PEEP 12 + PSV 8. He is on empiric Rocep hin/azithromycin. Review of systems relevant to events:: Pulmonary Reason for ICU Addmission:: Intubation for worsening Covid-PNA - Medications: Medications reviewed and adjusted accordingly: Yes Sedation:: Propofol/fentanyl Physical Exam Vital Signs: Temp Pulse Resp BP Pulse Ox 101.3 F H 93 21 H 131/85 H 95 01/15/20 01:38 01/15/20 08:41 01/15/20 10:02 01/15/20 10:02 01/15/20 09:32 Intake & Output 01/14/20 01/15/20 01/16/20 06:59 06:59 06:59 Intake Total 1482 2632 99 Output Total 615 2235 300 Balance 867 397 -201 Weight 112.5 kg 109.4 kg Weight/Height Weight 109.4 kg Height 1.85 m General appearance: PRESENT: no acute distress, well-developed, well-nourished, other - Prone position Head exam: PRESENT: atraumatic, normocephalic Eye exam: PRESENT: conjunctiva pink, PERRLA. ABSENT: scleral icterus Neck exam: PRESENT: full ROM. ABSENT: carotid bruit, lymphadenopathy Respiratory exam: PRESENT: decreased breath sounds. ABSENT: rales, rhonchi, wheezes Cardiovascular exam: PRESENT: RRR. ABSENT: diastolic murmur, rubs, systolic murmur Pulses: PRESENT: normal dorsalis pedis pul Gentrourinary exam: PRESENT: indwelling catheter Extremities exam: PRESENT: full ROM. ABSENT: calf tenderness, clubbing, pedal edema Musculoskeletal exam: PRESENT: normal inspection. ABSENT: deformity Neurological exam: PRESENT: CN II-XII grossly intact. ABSENT: motor sensory deficit Skin exam: PRESENT: dry, intact, warm. ABSENT: cyanosis, rash Tubes/Lines: PRESENT: Endotracheal Tube, Other - Orogastric tube Laboratory/Radiographs Laboratory Results: 01/15/20 04:45 01/15/20 04:45 01/15/20 01/15/20 01/15/20 04:45 04:45 05:42 WBC 21.0 H RBC 4.38 Hgb 13.7 Hct 39.6 MCV 90 MCH 31.3 MCHC 34.6 RDW 14.4 H Plt Count 471 H Seg Neutrophils % Not Reportable Carbonic Acid 1.40 H HCO3/H2CO3 Ratio 15:1 ABG pH 7.27 L ABG pCO2 46.4 H ABG pO2 72.7 L ABG HCO3 21.0 ABG O2 Saturation 92.6 L ABG Base Excess -5.9 FiO2 100% Sodium 138.0 Potassium 5.5 H Chloride 105 Carbon Dioxide 26 Anion Gap 7 BUN 55 H Creatinine 1.31 H Est GFR ( Amer) > 60 Glucose 128 H Calcium 9.8 01/13/20 16:34 Tracheal Aspirate Gram Stain - Final 01/13/20 16:34 Tracheal Aspirate Sputum Culture - Final C.albicans/C.dubliniensis Greatly Reduced Normal Karla 01/06/20 01/06/20 11:30 11:30 Creatine Kinase 201 H Troponin I < 0.012 Impressions: Chest X-Ray 01/13/20 13:01 IMPRESSION: No change in diffuse bilateral airspace. Endotracheal tube, nasogastric tube in good positioning All labs, radiographs, diagnostic studies and EKGs were personally reviewed: Yes In addition, reports of radiographic and diagnostic studies were read: Yes Assessment and Plan - Diagnosis (1) Acute hypoxemic respiratory failure due to COVID-19 Is this a current diagnosis for this admission?: Yes Plan: * Titrate vent settings based on ABG results. * Set FiO2 to 100%. Review of ventilator data suggests that the patient's lungs still demonstrate near normal compliance. I have advised the respiratory therapists to preferentially wean PEEP as tolerated, in hopes of avoiding barotrauma. * Restart remdesivir. * Continue dexamethasone. * Stop empiric Rocephin after 7-day course. Stop azithromycin after 5-day course. * Significant event: At approximately 1355 today, the patient self extubated. While he did demonstrate expected oxygen desaturation, he remained hemodyna mically stable. In fact, he has been placed on CPAP 14, FiO2 100% and appears to be tolerating it well. SPO2 85-90%. Ironically, the patient's pH is better on CPAP than when he was intubated. He appears to be mentating well. He does follow commands. Ideally, with tachypnea, he would have an alkalotic pH; however, as he is maintaining mentation, I will continue to monitor his mental status along with his ABG pH. If at any point, his pH falls below 7.28, I believe he should be reintubated. Also, deterioration in mental status would warrant prompt intubation. (2) Acute kidney injury superimposed on CKD Is this a current diagnosis for this admission?: Yes Plan: Avoid nephrotoxic drugs. Renal dosing of medications, as appropriate. 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 Diabetes mellitus complication status: without complication Qualified Code(s): E11.9 - Type 2 diabetes mellitus without complications Is this a current diagnosis for this admission?: Yes (4) Hypertension Qualifiers: Hypertension type: essential hypertension Qualified Code(s): I10 - Essential (primary) hypertension Is this a current diagnosis for this admission?: Yes (5) Sepsis Qualifiers: Sepsis type: sepsis due to unspecified organism Severe sepsis acute organ dysfunction type: acute renal failure Severe sepsis shock status: without septic shock Is this a current diagnosis for this admission?: Yes Critical Time Critical Time (minutes): 120 Level of Care: ICU -: 1. The care of a critical patient is a dynamic process. This note is a entry level marketing representative synopsis but static in nature. The timeframe for treatments given in order is not necessarily the actual time these treatments may have been done. 2. This patient requires critical care secondary to ongoing requirements for therapy not offered or safe outside the critical care environment. Transfer to a lower level of care will result in altered life or limb morbidity and mortality. 3. Multidisciplinary rounds completed. 4. ABCDE bundle addressed.
[2020-01-15] MEDS ORDERED: MORPHINE SULFATE 10 MG/ML INJ ONE (19:53)
[2020-01-15 20:06] LABS: ARTERIAL BLOOD BASE EXCESS -6.7 mmol/L; ARTERIAL BLOOD H2CO3 0.99 mmol/L (1.05-1.35); ARTERIAL BLOOD HCO3 17.8 mmol/L (20-24); ARTERIAL BLOOD O2 SATURATION 87.1 % (94-98); ARTERIAL BLOOD PCO2 32.9 mmHg (35-45); ARTERIAL BLOOD PH 7.35 (7.35-7.45); ARTERIAL BLOOD PO2 54.2 mmHg (80-100); ARTERIAL BLOOD TOTAL CO2 18.8 mmol/L (23-27)
[2020-01-15 20:07] LABS: ARTERIAL BLOOD FIO2 100%
[2020-01-15] MEDS ORDERED: MORPHINE SULFATE 10 MG/ML INJ IV ONE (20:30)
[2020-01-15] MEDS ORDERED: CALCIUM GLUCONATE 1000 MG/10 ML INJ IV ONE (20:31)
[2020-01-15] MEDS ORDERED: EPINEPHRINE INJ/PF 1 MG/1 ML AMPULE ONE (20:36)
[2020-01-15] MEDS ORDERED: VASOPRESSIN INJ 20 UNIT/1 ML VIAL ONE (21:15)
--- NOTE | 2020-01-16 00:33 | Death Summary ---
Summary Date : 01/15/20 Time of :: 21:29 Autopsy: No Resuscitation Status: Full Code - Final Diagnosis (1) Acute hypoxemic respiratory failure due to COVID-19 Is this a current diagnosis for this admission?: Yes (2) Hypertension Is this a current diagnosis for this admission?: Yes (3) Diabetes Is this a current diagnosis for this admission?: Yes Hospital Course:: 70-year-old -[place] male was admitted to [facility] on 01/06/2020 with increasing shortness of breath. COVID-19 test performed on 01/03/2020 returned a positive result. In the emergency department, laboratory evaluation was compatible with COVID-19 case definitions. He was admitted with acute hypoxic respiratory failure and COVID-19 pneumonia. He was admitted to the hospitalist service. On 01/13/2020, the patient transferred to the ICU and intubated for persistent hypoxemia and tachypnea despite BiPAP support. 01/14: Remained intubated. On propofol/fentanyl for sedation. Proned at approximately 2150 on 01/13. patient's treatment course consisted of 5-day course of remdesivir. On dexamethasone. However, he continued to experience clinical deterioration and has ended up on mechanical ventilatory support. FiO2 100%. PEEP 12. Ventilator settings adjusted at bedside this morning. SIMV (PC) f 12, Pi 8, FiO2 100%, PEEP 12 + PSV 8. He is on empiric Rocephin/azithromycin. At 13:55: self extubated. Placed on CPAP 15, 100% FiO2. At 2018 patient went into respiratory arrest with subsequent cardiac arrest. CPR initiated, multiple rounds of epinephrine, sodium bicarb, and 1 g calcium gluconate. During a pulse check patient was found to be in V. fib, defibrillated at 120 J compressions were resumed, at subsequent pulse check 3 minutes later patient was in V. fib and was defibrillated a second time. ROSC was achieved on 3 separate occasions, lasting only 1 to 2 minutes and each time went into PEA arrest. Family was updated and brought to the bedside. Given the futility of the situation and the family requests code was called and patient at 2128.
[2020-01-16] MEDS: IPRATROPIUM BROMIDE 0.02% NEB 0.5 MG/2.5 ML AMPUL NEB SCH (02:27)
[2020-01-16] MEDS: LEVALBUTEROL HCL NEB 1.25 MG/3 ML AMPUL NEB SCH (02:27)
--- NOTE | 2020-01-18 17:58 | EKG REPORT ---
SEVERITY:- ABNORMAL ECG - ATRIAL FIBRILLATION WITH RAPID V-RATE : Confirmed by: Jose Reynolds MD 18-Jan-2020 17:57:36
--- NOTE | 2020-01-18 17:58 | EKG REPORT ---
SEVERITY:- ABNORMAL ECG - ATRIAL FIBRILLATION WITH RAPID VENTRICULAR RESPONSE BORDERLINE T ABNORMALITIES, INFERIOR LEADS : Confirmed by: Jose Reynolds MD 18-Jan-2020 17:57:30
== END 2020-01-15 21:29 | disposition expired | DRG 208 ==
LOC: ER 10:41 → EH 14:38 → 3N 16:15 → ICU 01-13 12:10
PROVIDERS: ADMIT Anesthesiology; ATTEND Anesthesiology
PROC: XW033E5 Introduction of Remdesivir Anti-infective into Peripheral Vein, Percutaneous Approach, New Technology Group 5 (ICD-10-PCS; 2020-01-08)
PROC: XW13325 Transfusion of Convalescent Plasma (Nonautologous) into Peripheral Vein, Percutaneous Approach, New Technology Group 5 (ICD-10-PCS; 2020-01-09)
PROC: 0BH17EZ Insertion of Endotracheal Airway into Trachea, Via Natural or Artificial Opening (ICD-10-PCS; principal; 2020-01-13)
PROC: 5A1945Z Respiratory Ventilation, 24-96 Consecutive Hours (ICD-10-PCS; 2020-01-13)
PROC: XW033E5 Introduction of Remdesivir Anti-infective into Peripheral Vein, Percutaneous Approach, New Technology Group 5 (ICD-10-PCS; 2020-01-13)
DX: U07.1 COVID-19 (principal); J12.89 Other viral pneumonia; J96.01 Acute respiratory failure with hypoxia; A41.9 Sepsis, unspecified organism; R65.20 Severe sepsis without septic shock; N17.9 Acute kidney failure, unspecified; E86.0 Dehydration; J44.9 Chronic obstructive pulmonary disease, unspecified; M10.9 Gout, unspecified; E78.5 Hyperlipidemia, unspecified; M19.90 Unspecified osteoarthritis, unspecified site; N18.9 Chronic kidney disease, unspecified; I12.9 Hypertensive chronic kidney disease with stage 1 through stage 4 chronic kidney disease, or unspecified chronic kidney disease; E11.22 Type 2 diabetes mellitus with diabetic chronic kidney disease; Z87.891 Personal history of nicotine dependence; Z79.84 Long term (current) use of oral hypoglycemic drugs; Z79.899 Other long term (current) drug therapy; Z79.51 Long term (current) use of inhaled steroids; Z78.1 Physical restraint status
CPT/HCPCS: 31500; 36415; 36430; 36600; 71045; 74018; 80048; 80053; 81001; 82550; 82728; 82803; 82962; 83605; 83615; 83735; 84484; 85025; 85027; 85379; 85384; 86140; 86900; 86901; 87070; 87205; 87635; 87804; 87880; 92950; 93005; 93010; 94002; 94003; 94640; 94660; 96360; 99285; 99291; 99292; C9803; J0171; J0330; J0696; J1100; J1650; J1815; J1940; J2060; J2270; J2704; J3010; J3490; J7030; J7050; J7120; J7614; J7644